=== PATIENT | male | born 1970 | race Caucasian/White ===

== ENCOUNTER 2016-06-05 11:16 | Emergency (ER) | payer MEDICARE, MEDICAID ==
[2016-05-11 02:47] VITALS: BMI 39.3
[~2016-06-05 11:16] MED LIST: ACETAMINOPHEN325 MG NG; ASPIRIN325 MG PO; ATIVAN0.5 MG PO; BACTRIM 400-801 TAB; BACTRIM DS TABL1 TAB PO; BAYER CHEWABLE81 MG PO; BENADRYL50 MG PO; CARAFATE1 G PO; CARAFATE1 G/10 ML PO; DOXEPIN HCL10 MG PO; DOXEPIN HCL75 MG PO; FERREX 150 PLUS1 CAP PO; FERROUS SULFAT325 MG PO; FLOMAX0.4 MG PO; FUROSEMIDE20 MG PO; GLIPIZIDE10 MG PO; GLUCOPHAGE1000 MG PO; GLUCOTROL XL 1010 MG PO; GLUCOTROL XL 5 M5 MG; HYDROCODON-ACE1 EAC7 PO; HYDROCODONE-APA1 TAB PO; K-DUR20 MEQ PO; KLONOPIN0.5 MG PO; LASIX40 MG PO; METOPROLOL TART50 MG PO; NEURONTIN600 MG PO; NITROSTAT0.4 MG SL; PAXIL30 MG PO; PEPCID40 MG PO; PERCOCET 10/3251 TA1 PO; PLAVIX75 MG PO; PRAVACHOL20 MG PO; PRILOSEC20 MG PO; PRINIVIL20 MG PO; PROTONIX40 MG PO; PROZAC40 MG PO; RANEXA500 MG PO; REQUIP0.5 MG PO; ROBAXIN500 MG PO; SINEQUAN100 MG PO; SINEQUAN50 MG PO; VITAMIN B-1000 MCG/M IM; XARELTO10 MG PO; XARELTO20 MG PO; ZESTORETIC 20-1 EACH PO; ZOLOFT50 MG PO
[2016-06-05 11:55] LABS: BASOPHILS 0.1 % (0.0-2.0); EOSINOPHILS 1.6 % (0-7); HEMATOCRIT 36.3 % (42.0-54.0); HEMOGLOBIN 10.8 g/dL (13.5-17.5); IMMATURE GRANULOCYTES 0.1 % (0-5); LYMPHOCYTES 20.1 % (15-50); MCH 24.6 pg (26.0-34.0); MCHC 29.8 g/dL (31.0-37.0); MCV 82.7 fL (80.0-100.0); MEAN PLATELET VOLUME 10.9 fL (7.4-10.4); MONOCYTES 8.8 % (2-11); NEUTROPHILS 69.3 % (40-80); PLATELET COUNT 203 10x3/uL (130-400); RBC 4.39 10x6/uL (4.20-6.10); RDW 15.9 % (11.5-14.5)
[2016-06-05 12:13] LABS: ALBUMIN 3.9 g/dL (3.4-5.0); ANION GAP 13.7 mmol/L (8-16); BILIRUBIN - TOTAL 0.4 mg/dL (0.2-1.3); CALCIUM 9.3 mg/dL (8.5-10.1); CARBON DIOXIDE 31.8 mmol/L (21.0-32.0); CREATININE - SERUM 2.1 mg/dL (0.6-1.3); POTASSIUM - SERUM 4.5 mmol/L (3.5-5.1); PROTEIN - SERUM 7.5 g/dL (6.4-8.2)
[2016-06-05 12:49] LABS: CKMB 1.5 U/L (0.0-3.6); CREATINE KINASE 131 UL (21-232); TROPONIN-I < 0.017 ng/mL (0.000-0.060)
== END 2016-06-05 15:51 | disposition home or self-care (01) ==
LOC: D.ER 11:16
PROVIDERS: Emergency Medicine
DX: R55 Syncope and collapse (principal); I95.9 Hypotension, unspecified; E86.0 Dehydration; F32.9 Major depressive disorder, single episode, unspecified; F17.200 Nicotine dependence, unspecified, uncomplicated; I44.0 Atrioventricular block, first degree; I45.10 Unspecified right bundle-branch block; I44.60 Unspecified fascicular block

== ENCOUNTER → 2016-07-03 08:30 | Outpatient (CLI) | payer MEDICARE ==
[2016-05-11 02:47] VITALS: BMI 39.3
== END | disposition home or self-care (01) ==
LOC: D.CT 08:30
DX: I70.219 Atherosclerosis of native arteries of extremities with intermittent claudication, unspecified extremity (principal); I25.10 Atherosclerotic heart disease of native coronary artery without angina pectoris

== ENCOUNTER → 2016-07-24 14:44 | Outpatient (CLI) | payer MEDICARE ==
[2016-05-11 02:47] VITALS: BMI 39.3
== END | disposition home or self-care (01) ==
LOC: D.MRI 14:44
DX: M79.604 Pain in right leg (principal)

== ENCOUNTER 2016-11-03 04:16 | Outpatient (CLI) | payer MEDICARE ==
[2016-05-11 02:47] VITALS: BMI 39.3
[2016-11-03] VITALS (9 sets, daily range): BP systolic 140–167; BP diastolic 76–98
--- NOTE | ~2016-11-03 | HEMODYNAMI ---
PATIENT:SERINA SAENZ MEDICAL RECORD: [id number] : 68 [id number] ADMISSION DATE: 11/03/16 Generatedon:11/03/201611:27 Patient name: SERINA SAENZ Patient #: [id number] : 1970 Date of study: 11/03/2016 Page: Of Hemodynamic Procedure Report Patient Data Patient Demographics Procedure consent was obtained First Name: SERINA Gender: Male Last Name: LETTY : 1970 Middle Initial: RABIA Age: 45 year(s) Patient #: [id number] Race: SSN: [id number] Additional ID: [id number] Contact details [address]: [address] [place] [address] State: [place] City: [place] Zip code: [address] Past Medical History Allergies Allergen Reaction Date Comments Reported Other allergy 06/10/2014 keflex Other allergy 04/19/2016 Keflex Other allergy 04/26/2016 keflex Other allergy 05/11/2016 Cephalexin, Monohydrate Other allergy 11/03/2016 cephalexin Monohydrate Admission Admission Data Admission Date: 11/03/2016 Admission Time: 5:04 Room #: D.2119 Lab Results Lab Result Date: 11/03/2016 Lab Result Time: 3:31 Biochemistry Name Units Result Min Max BUN mg/dl 14 --(--*-)-- 7 18 CK-MB ng/ml 0.4 --(*---)-- 0 3.6 Creatinine mg/dl 1.2 --(---*)-- 0.6 1.3 Creatinine l 56 --(*---)-- 21 215 Kinase Troponin l ng/ml 0.017 --(-*--)-- 0 0.06 CBC Name Units Result Min Max Hematocrit % 33.2 *-(----)-- 42 54 Hemoglobin g/dl 9.9 *-(----)-- 13.5 17.5 Procedure Procedure Types Cath Procedure Diagnostic Procedure [facility] w/Coronaries w/Grafts PCI Procedure Coronary Stent Initial Miscellaneous Procedures Moderate Sedation up to 30 minutes Procedure Description Procedure Date Procedure Date: 11/03/2016 Procedure Start Time: 11:08 Procedure End Time: 11:26 Procedure Staff Name Function Dylan Browning MD Performing Physician Abdon Dorantes RT Scrub Hansa Garza RN Nurse Bertrand Gamble RT Monitor Procedure Data Cath Procedure Fluoroscopy Diagnostic fluoroscopy Total fluoroscopy Time: 2.7 time: 2.7 min min Diagnostic fluoroscopy Total fluoroscopy dose: 393 dose: 393 mGy mGy Contrast Material Contrast Material Type Amount (ml) Isovue 300 77 Entry Location Entry Primary Successful Side Size Upsize Upsize Entry Closure Succes sful Closure Location (Fr) 1 (Fr) 2 (Fr) Remarks Device Remarks Femoral Right 5 Fr 6 Fr Exoseal artery Short Estimated blood loss: 10 ml Diagnostic catheters Device Type Used For End Catheter Placement Cordis 5Fr Pigtail Procedure Catheter (MP) Cordis 5Fr JL 4.0 Procedure Catheter (MP) Cordis 5Fr 3DRC Catheter Procedure (MP) Diagnostic Infinity 5Fr Procedure AR 2 MOD catheter Procedure Complications No complications Procedure Medications Medication Administration Route Dosage Oxygen NC 2 l/min Heparin Flush Bag added to field 2 bags (1000units/500ml NS) Lidocaine 2% added to field 20 Versed I.V. 1 mg Fentanyl I.V. 50 mcg Versed I.V. 1 mg Fentanyl I.V. 50 mcg Versed I.V. 1 mg Fentanyl I.V. 50 mcg Versed I.V. 1 mg Fentanyl I.V. 50 mcg Versed I.V. 1 mg Fentanyl I.V. 50 mcg Versed I.V. 1 mg Fentanyl I.V. 50 mcg Fentanyl I.V. 50 mcg Versed I.V. 1 mg Versed I.V. 1 mg Fentanyl I.V. 50 mcg Heparin Bolus I.V. 4000 units Hemodynamics Rest HGB: 9.9 (g/dl) Heart Rate: 88 (bpm) Snapshots Pre Cath Intra NCS Post Cath Vital Signs Time Heart Resp SPO2 etCO2 [id number] NIBP (mmHg) Rhythm Pain Sedatio n Rate (ipm) (%) (mmHg) (mmHg) Status Level (bpm) 10:50:28 89 15 99 0 0 179/102(149) NSR 0 (11) 10(A) , No pain 10:54:48 84 16 94 0 0 174/95(140) NSR 0 (11) 10(A) , No pain 10:59:04 84 17 100 0 0 161/86(135) NSR 0 (11) 10(A) , No pain 11:04:03 83 16 100 0 0 Measuring NSR 0 (11) 10(A) , No pain 11:04:10 83 15 100 0 0 140/78(117) NSR 0 (11) 10(A) , No pain 11:08:28 84 19 98 0 0 135/76(109) NSR 0 (11) 10(A) , No pain 11:13:26 82 18 99 0 0 Measuring NSR 0 (11) 10(A) , No pain 11:13:29 74 18 99 0 0 117/70(106) NSR 0 (11) 10(A) , No pain 11:17:40 87 19 100 0 0 114/67(104) NSR 0 (11) 10(A) , No pain 11:20:14 85 15 100 0 0 128/74(110) NSR 0 (11) 10(A) , No pain 11:24:28 83 16 100 0 0 128/74(115) NSR 0 (11) 10(A) , No pain Medications Time Medication Route Dose Verified Delivered Reason Notes Effectiveness by by 10:53:23 Oxygen NC 2 Dylan Hansa Per physician l/min Nallely Garza RN 10:53:30 Heparin Flush added 2 Dylan Dylan used for Bag to bags Nallely Browning MD procedure (1000units/500ml field NS) 10:53:37 Lidocaine 2% added 20ml Dylan Dylan used for to vial Nallely Browning MD procedure field 10:58:40 Versed I.V. 1 mg Dylan Hansa for sedation Nallely Garza RN 10:58:51 Fentanyl I.V. 50 Dylan Hansa for sedation mcg Nallely Garza RN 11:00:35 Versed I.V. 1 mg Dylan Hansa for sedation Nallely Garza RN 11:00:49 Fentanyl I.V. 50 Dylan Hansa for sedation mcg Tauth MD Greg RN 11:02:50 Versed I.V. 1 mg Dylan Hansa for sedation Nallely Garza RN 11:02:54 Fentanyl I.V. 50 Dylan Hansa for sedation mcg Nallely Garza RN 11:04:45 Fentanyl I.V. 50 Dylan Hansa for sedation mcg Nallely Garza RN 11:04:45 Versed I.V. 1 mg Dylan Hansa for sedation Nallely Garza RN 11:06:42 Versed I.V. 1 mg Dylan Hansa for sedation Nallely Garza RN 11:06:49 Fentanyl I.V. 50 Dylan Hansa for sedation mcg Nallely Garza RN 11:08:40 Versed I.V. 1 mg Dylan Hansa for sedation Nallely Garza RN 11:08:43 Fentanyl I.V. 50 Dylan Hansa for sedation mcg Nallely Garza RN 11:10:34 Versed I.V. 1 mg Dlyan Hansa for sedation Nallely Garza RN 11:10:42 Fentanyl I.V. 50 Dylan Hansa for sedation mcg Nallely Garza RN 11:12:53 Versed I.V. 1 mg Dylan Hansa for sedation Nallely Garza RN 11:12:56 Fentanyl I.V. 50 Dylan Hansa for sedation mcg Nallely Garza RN 11:15:25 Heparin Bolus I.V. 4000 Dylan Hansa for dose units Nallely Garza RN anticoagulation verified [facility] dr browning Procedure Log Time Note 10:15:10 Abdon Dorantes RT(R) sent for patient. Start room use. 10:34:54 Informed consent obtained and on chart 10:35:16 Time tracking: Regular hours 10:35:22 Plan of Care:Hemodynamics will remain stable., Cardiac rhythm will remain stable., Comfort level will be maintained., Respiratory function will remain adequate., Patient/ family verbilizes understanding of procedure., Procedure tolerated without complication., Recovers from procedure without complications.. 10:37:44 Lab Result : BUN 14 mg/dl 10:37:44 Lab Result : Creatinine 1.2 mg/dl 10::44 Lab Result : CK-MB 0.4 ng/ml 10:37:44 Lab Result : Troponin l 0.017 ng/ml 10:37:44 Lab Result : Creatinine Kinase 56 l 10:37:44 Lab Result : Hematocrit 33.2 % 10:37:44 Lab Result : Hemoglobin 9.9 g/dl 10:38:02 Lab results completed and on chart. 10:38:35 Patient allergic to Other allergycephalexin Monohydrate 10:43:08 Patient received from Med II to CCL 1 Alert and oriented. Tansferred to table in Supine position. 10:43:08 Warm blankets applied, and yolande hugger turned on for patient comfort. 10:43:09 Correct patient and procedure confirmed by team. 10:43:10 ECG and BP/O2 sat monitors applied to patient. 10:49:16 Vital chart was started 10:49:18 Baseline sample Acquired. 10:49:25 Rhythm: sinus rhythm 10:49:28 Full Disclosure recording started 10:53:23 Oxygen 2 l/min NC was administered by Hansa Garza RN; Per physician; 10:53:30 Heparin Flush Bag (1000units/500ml NS) 2 bags added to field was administered by Dylan Browning MD; used for procedure; 10:53:37 Lidocaine 2% 20ml vial added to field was administered by Dylan Browning MD; used for procedure; 10:55:27 H&P Date Dictated: 11/03/2016 Within 30 days and on chart.. 10:55:28 Pre-procedure instructions explained to patient. 10:55:29 Pre-op teaching completed and patient verbalized understanding. 10:55:31 Family in patients room. 10:55:32 Patient NPO since Midnight. 10:55:34 Is the patient allergic to Iodine/contrast media? No. 10:55:36 Is patient on blood thinner?Yes 10:55:39 ACC The patient was administered the following blood thiners within the last 24 hours: ACCAspirin, ACCPlavix 10:55:41 Patient diabetic? Yes. 10:55:42 If diabetic: On Metformin? Yes 10:55:45 If on Metformin: Last Dose? 11/01/2016 10:55:48 Previous problem with sedation/anesthesia? No ? 10:55:49 Snore? Yes 10:55:50 Sleep apnea? Yes 10:55:51 Deviated septum? No 10:55:52 Opens mouth fully? Yes 10:55:53 Sticks out tongue? Yes 10:55:54 Airway obstruction? No ? 10:55:56 Dentures? No ? 10:55:59 Pre procedure: right dorsailis pedis pulse 2+ Normal; easily identifiable; not easily obliterated 10:56:02 Patient pain scale 5/10 ?. 10:56:17 IV patent on arrival in right antecubital with 0.9% NaCl at [facility]. 10:56:22 Right groin area was prepped with chlora-prep and draped in sterile fashion 10:56:23 Alarms reviewed by R. N. 10:56:24 Sharps counted by scrub and verified by R.N. 10:56:26 Use device set Femoral Dx 10:56:28 Tegaderm 4 x 4 opened to sterile field. 10:56:30 Acist Manifold opened to sterile field. 10:56:36 Acist Hand Control opened to sterile field. 10:56:37 Acist Syringe opened to sterile field. 10:56:37 Bag Decanter opened to sterile field. 10:56:38 Medline Cath Pack opened to sterile field. 10:56:38 Terumo 5Fr Collins Sheath opened to sterile field. 10:56:39 St Ronal 260cm J .035 wire opened to sterile field. 10:56:40 Diagnostic Infinity 5Fr Multipack catheter opened to sterile field. 10:58:34 Physician arrived 10:58:34 --------ALL STOP TIME OUT------ 10:58:35 Final Timeout: patient, procedure, and site verified with staff and physician. All members of the team are in agreement. 10:58:37 Right groin site verified by team. 10:58:39 Physical assessment completed. ASA score P 2 - A patient with mild systemic disease as per Dylan Browning MD. 10:58:40 Versed 1 mg I.V. was administered by Hansa Garza RN; for sedation; 10:58:42 Sedation plan: IV Moderate Sedation Versed, Fentanyl 10:58:51 Fentanyl 50 mcg I.V. was administered by Hansa Garza RN; for sedation; 11:00:35 Versed 1 mg I.V. was administered by Hansa Garza RN; for sedation; 11:00:49 Fentanyl 50 mcg I.V. was administered by Hansa Garza RN; for sedation; 11:02:50 Versed 1 mg I.V. was administered by Hansa Garza RN; for sedation; 11:02:54 Fentanyl 50 mcg I.V. was administered by Hansa Garza RN; for sedation; 11:04:45 Fentanyl 50 mcg I.V. was administered by Hansa Garza RN; for sedation; 11:04:45 Versed 1 mg I.V. was administered by Hansa Garza RN; for sedation; 11:05:48 Zero performed for pressure channel P1 11:05:56 Zero performed for pressure channel P1 11:05:58 Zero performed for pressure channel P1 11:06:42 Versed 1 mg I.V. was administered by Hansa Garza RN; for sedation; 11:06:49 Fentanyl 50 mcg I.V. was administered by Hansa Garza RN; for sedation; 11:08:09 Procedure started. 11:08:12 Local anesthetic to right femoral artery with Lidocaine 2% by Dylan Browning MD.INITIAL ACCESS ONLY 11:08:19 A 5 Fr sheath was inserted into the Right Femoral artery 11:08:40 Versed 1 mg I.V. was administered by Hansa Garza RN; for sedation; 11:08:43 Fentanyl 50 mcg I.V. was administered by Hansa Garza RN; for sedation; 11:10:34 Versed 1 mg I.V. was administered by Hansa Garza RN; for sedation; 11:10:42 Fentanyl 50 mcg I.V. was administered by Hansa Garza RN; for sedation; 11:11:04 A Cordis 5Fr Pigtail Catheter (MP) was advanced over the wire and used for Procedure. 11:11:07 LV gram done using NGUYEN 11:11:10 Injector settings: Ml/sec: 10, Volume: 20, 11:11:14 EF : 55 % 11:11:15 Catheter exchanged over wire. 11:11:19 A Cordis 5Fr JL 4.0 Catheter (MP) was advanced over the wire and used for Procedure. 11:11:20 LCA angiography performed. 11:11:35 Terumo 6Fr Collins Sheath opened to sterile field. 11:11:36 Garcia Whisper J 300cm 0.014 guide wire opened to sterile field. 11:11:37 Qool BasixCompak Inflation Kit opened to sterile field. 11:12:09 Catheter exchanged over wire. 11:12:13 A Cordis 5Fr 3DRC Catheter (MP) was advanced over the wire and used for Procedure. 11:12:22 GARCIA to LAD angiography performed. 11:12:48 RCA angiography performed. 11:12:53 Versed 1 mg I.V. was administered by Hansa Garza RN; for sedation; 11:12:56 Fentanyl 50 mcg I.V. was administered by Hansa Garza RN; for sedation; 11:13:03 Catheter exchanged over wire. 11:13:08 A Diagnostic Infinity 5Fr AR 2 MOD catheter was advanced over the wire and used for Procedure. 11:13:16 Cordis 6FR XBLAD 4.0 guide catheter opened to sterile field. 11:14:35 SVG to Ramus angiography performed. 11:14:41 Catheter removed. 11:14:52 Sheath upsized to a 6 Fr Short. 11:15:23 6 Fr xblad 4 guide catheter was inserted over the wire 11:15:25 Heparin Bolus 4000 units I.V. was administered by Hansa Garza RN; for anticoagulation; dose verified wt dr browning 11:15:26 whisper wire advanced. 11:16:17 Wire advanced across lesion. 11:17:54 Inflation Number: 1 A Promus Premier OTW 3.5 x 16 stent was prepped and advanced across the Mid CX. The stent was deployed at 23 PRISCILA for 0:10 (min:sec). 11:17:55 Stent catheter was removed intact over wire. 11:17:56 Wire removed. 11:17:56 Guide catheter removed. 11:18:04 Cordis 6Fr Exoseal opened to sterile field. 11:18:11 Sheath removed intact; hemostasis achieved with Exoseal to the Right Femoral artery. 11:18:13 Procedure ended.(Physican Out) 11:20:31 Fluoroscopy time 02.70 minutes. 11:20:35 Flurop Dose total: 393 11:20:35 Fluoroscopy dose: 393 mGy 11:20:38 Contrast amount:Isovue 300 77ml. 11:20:39 Sharps counted by scrub and verified by R.N. 11:20:41 Insertion/operative site no bleeding no hematoma. 11:20:43 Post-op/insertion site Right Femoral artery dressed using a 4 x 4 and Tegaderm. 11:20:47 Post right femoral artery:stable, soft, clean and dry 11:20:48 Post Procedure Pulses reassessed and unchanged 11:20:50 Post-procedure physical assessment completed. ASA score P 2 - A patient with mild systemic disease as per Dylan Browning MD. 11:20:52 Post procedure rhythm: unchanged. 11:20:54 Estimated blood loss: 10 ml 11:20:55 Post procedure instruction explained to patient.Patient verbalizes understanding. 11:20:59 Patient needs reinforcement of post procedure teaching. 11:21:37 Procedure type changed to Cath procedure, Diagnostic procedure, LHC, LHC w/Coronaries w/Grafts, PCI procedure, Coronary Stent Initial, Miscellaneous Procedures, Moderate Sedation up to 30 minutes 11:26:48 Procedure and supply charges have been captured, reviewed, submitted and are correct. 11:26:50 Procedure Complication : No complications 11:26:51 Vital chart was stopped 11:26:53 Report given to PCU. 11:26:56 Patient transfered to PCU with Stretcher. 11:26:57 Procedure ended. 11:26:57 Full Disclosure recording stopped 11:26:59 End room use (Document Last) Intervention Summary Intervention Notes Time ActionType Lesion and Equipment Action# Pressure Duration Attributes Used 11:17:54 Place stent Mid CX Promus 1 23 00:10 Premier OTW 3.5 x 16 stent Device Usage Item Name Manufacture Quantity Catalog Number Hospital Part Current [facility] Lot# / Charge Number Stock Stock Serial# Code Tegaderm 4 3M 1 [id number] 230809 918483 5 x 4 Acist Acist 1 47924 933177 560074 249205 5 Manifold [employer] Inc Acist Hand Acist 1 38350 733691 891812 664089 5 Control Medical Systems Inc Acist Acist 1 63604 640174 292249 246171 20 Syringe Medical Systems Inc Bag Microtek 1 2002S 8714799 08122 612969 5 [employer] Medline Cardinal 1 [id number] 169269 46817 245442 5 Cath Pack Health Terumo 5Fr Terumo 1 [id number] 525469 797822 129776 [address] St Ronal 1 252324 456353 310516 772403 30 260cm J .035 wire Diagnostic Cardinal 1 [id number] 683930 14192 136506 30 Infinity Health 5Fr Multipack catheter Cordis 5Fr Cardinal 1 [id number] 5 Pigtail Health Catheter (MP) Cordis 5Fr Cardinal 1 240117 5 JL 4.0 Health Catheter (MP) Terumo 6Fr Terumo 1 [id number] 629420 733132 877816 40 Collins Sheath Garcia Garcia 1 [id number] 536063 652992 098240 5 Whisper J Vascular 300cm 0.014 guide wire Merit Merit 1 [id number] 873063 378355 050964 15 Re[employer]ooixT[employer]lide Medical Inflation Kit Cordis 5Fr Cardinal 1 066545 5 3DRC Health Catheter (MP) Diagnostic Cardinal 1 [id number] 166983 769112 973809 20 Infinity Health 5Fr AR 2 MOD catheter Cordis 6FR Cardinal 1 [id number] 911674 770779 084812 3 XBLAD 4.0 Health guide catheter Promus Caret 1 [id number] 554294 658392 5 [id number] VISEO 3.5 x 16 stent Cordis 6Fr Cardinal 1 [id number] 226073 534335 424342 10 [facility] NitroPCR Signature Audit [place] Stage Time Signature Unsigned Intra-Procedure 11/03/2016 Bertrand Gamble 11:27:45 AM RT(R) Signatures Monitor : Bertrand Gamble RT Signature : Date : Time : [facility] [address] [facility] [address]
[2016-11-03 03:35] LABS: BASOPHILS 0.1 % (0-2); HEMATOCRIT 33.2 % (42.0-54.0); HEMOGLOBIN 9.9 g/dL (13.5-17.5); IMMATURE GRANULOCYTES 0.1 % (0-5); LYMPHOCYTES 24.1 % (15-50); MCHC 29.8 g/dL (31.0-37.0); MONOCYTES 8.4 % (2-11); NEUTROPHILS 66.3 % (40-80); PLATELET COUNT 179 10x3/uL (130-400); RBC 4.31 10x6/uL (4.20-6.10); RDW 16.3 % (11.5-14.5); WBC 6.9 10x3/uL (4.8-10.8)
[2016-11-03 03:50] LABS: ALBUMIN 3.5 g/dL (3.4-5.0); ALKALINE PHOSPHATASE 72 U/L (46-116); ALT (SGPT) 20 U/L (10-68); BILIRUBIN - TOTAL 0.31 mg/dL (0.2-1.3); CALC OSMOLALITY 281 mosm/kg (275-300); CALCIUM 9.1 mg/dL (8.5-10.1); CHLORIDE - SERUM 103 mmol/L (98-107); CREATININE - SERUM 1.2 mg/dL (0.6-1.3); GLUCOSE 105 mg/dL (74-106); POTASSIUM - SERUM 3.9 mmol/L (3.5-5.1); PROTEIN - SERUM 7.2 g/dL (6.4-8.2); SODIUM 141 mmol/L (136-145); UREA NITROGEN 14 mg/dL (7-18); eGFR NON AFRICAN AMERICAN 69 mL/min (90-120)
[2016-11-03 04:01] LABS: CKMB 0.4 U/L (0.0-3.6); CREATINE KINASE 60 UL (21-232); TROPONIN-I < 0.017 ng/mL (0.000-0.060)
[2016-11-03] MEDS ORDERED: PROTONIX40 MG PO (06:01)
[2016-11-03] MEDS ORDERED: LIPITOR20 MG PO (06:03)
--- NOTE | 2016-11-03 06:40 | NUR ---
PT RECEIVED VIA WHEELCHAIR FROM ER, AWAKE, ALERT, ORIENTED, STATES HE IS HAVING ACTIVE CP AND PRESSURE. HOLDING PT NPO REGARDLESS OF DIET ORDER. I HAVE DISCUSSED THE NEED TO DO SO IN CASE HE WILL BE CATHED TODAY, AND PT AND SPOUSE ARE IN FULL AGREEMENT. PT DID NOT HAVE ANY ORDERS FOR PRN PAIN MEDICATION, SO PER THE ORDER, I HAVE RESTARTED HIS HOME MEDICATIONS AND DID GIVE HIM HIS PRN NORCO. PT HAD ACTIVE NAUSEA AND VOMITING, ZOFRAN GIVEN. TELEMETRY PLACED. CONTINUE TO MONITOR CLOSELY.
--- NOTE | 2016-11-03 07:30 | NUR ---
PATIENT RESTING QUIETLY WITH DEEP EVEN RESPIRATIONS. AT THE BEDSIDE ALSO SLEEPING. DID NOT DISTURB. THE STUDENT NURSE HAS TAKEN HIS VS, THEY ARE WNL. DENIED CP TO HER, C/O NAVARRETE.
--- NOTE | 2016-11-03 08:50 | NUR ---
PATIENT DENIES CP. STATES THAT HIS NAVARRETE IS RATED A 5. HE BELIEVES THAT IT IS R/T THE NITRO PATCH. WE DISCUSSED HIS METFORMIN. HE DIDNT TAKE IT YESTERDAY, UNDERSTANDS THAT HE IS TO HOLD IT FOR A COUPLE OF DAYS FOLLOWING THE PROCEDURE DUE TO THE DYE THAT IS USED. PLAVIX AND ASA GIVEN. WITHHELD THE LASIX AND OTHER MEDS AT THIS TIME.
[2016-11-03 09:10] LABS: CREATINE KINASE 56 UL (21-232); TROPONIN-I < 0.017 ng/mL (0.000-0.060)
--- NOTE | 2016-11-03 10:40 | NUR ---
PATIENT OFF THE UNIT TO ROAD CREW MEMBER. PREOP MEDICATIONS GIVEN. IV TO THE RIGHT AC PATENT. HE UNDERSTANDS THE PROCEDURE PLANNED AND THE POST OP EXPECTATIONS. HIS IS AT THE BEDSIDE AND ALSO VERBALIZES UNDERSTANDING. HIS TWO DAUGHTERS, SON IN LAW AND GRANDBABIES ARE ALSO HERE. HE WAS RATING HIS ANGINA A 5 JUST BEFORE THEY TOOK HIM.
[2016-11-03 10:42] LABS: BASOPHILS 0.1 % (0-2); EOSINOPHILS 1.4 % (0-7); HEMATOCRIT 38.4 % (42.0-54.0); HEMOGLOBIN 11.5 g/dL (13.5-17.5); IMMATURE GRANULOCYTES 0.1 % (0-5); LYMPHOCYTES 36.7 % (15-50); MCH 23.2 pg (26.0-34.0); MCHC 29.9 g/dL (31.0-37.0); MCV 77.4 fL (80.0-100.0); MEAN PLATELET VOLUME 11.7 fL (7.4-10.4); MONOCYTES 7.3 % (2-11); NEUTROPHILS 54.4 % (40-80); PLATELET COUNT 213 10x3/uL (130-400); RBC 4.96 10x6/uL (4.20-6.10); RDW 16.4 % (11.5-14.5)
[2016-11-03 10:47] LABS: CALC OSMOLALITY 280 mosm/kg (275-300); CALCIUM 9.3 mg/dL (8.5-10.1); CARBON DIOXIDE 28.2 mmol/L (21.0-32.0); CHLORIDE - SERUM 103 mmol/L (98-107); CREATININE - SERUM 1.1 mg/dL (0.6-1.3); GLUCOSE 100 mg/dL (74-106); POTASSIUM - SERUM 3.8 mmol/L (3.5-5.1); SODIUM 141 mmol/L (136-145); UREA NITROGEN 13 mg/dL (7-18); eGFR NON AFRICAN AMERICAN 76 mL/min (90-120)
--- NOTE | 2016-11-03 11:45 | NUR ---
PATIENT RETURNED TO THE UNIT AND RECEIVED TO ROOM 2119. AND OTHER FAMILY MEMBERS AT THE BEDSIDE. PATIENT IS AWAKE AND ALERT, FALLS ASLEEP EASILY. IVF INFUSING TO THE RIGHT AC PER ORDERS. PUNCTURE SITE IS DRESSED WITH GAUZE AND CLEAR DRESSING. THERE ARE NO S/S OF BLEEDING. SITE IS SOFT AND NONTENDER. PATIENT AND VOICE UNDERSTANDING THAT HE IS TO REMAIN FLAT FOR 4 HOURS AND MAY THEN DISCHARGE HOME. DR. GRANADOS HAS BEEN IN AND DISCUSSED FINDINGS/INTERVENTION WITH THE FAMILY. VSS.
--- NOTE | 2016-11-03 14:00 | NUR ---
PATIENT GIVEN NORCO FOR C/O BACK DISCOMFORT DUE TO INABILITY TO ELEVATE HOB. DENIES OTHER NEEDS, VSS. INSERTION SITE DRESSING REMAINS CLEAN AND WITHOUT EVIDENCE OF BLEEDING.
--- NOTE | 2016-11-03 17:05 | NUR ---
PATIENT DISCHARGED HOME AFTER DISCUSSING INSTRUCTIONS FOR CARE, INCLUDED INCISION CARE, MEDICATIONS AND NEED FOR FOLLOW UP APPT. AT THE BEDISDE THROUGHOUT CONVERSATIONS AND VOICED UNDERSTANDING.
--- NOTE | 2016-11-05 10:11 | CN ---
PATIENT NAME:SERINA SAENZ MEDICAL RECORD: [id number] : 68 LOCATION:D. D.2119 ADMIT DATE: 11/03/16 ACCOUNT: [id number] CONSULTING PHYSICIAN: ARTURO GRANADOS MD REFERRING PHYSICIAN: JOHN REGALADO MD DATE OF CONSULTATION: 11/03/2016 Cardiology Consultation DIAGNOSES: 1. Unstable angina. 2. Coronary artery disease. 3. Previous multivessel percutaneous transluminal coronary angioplasty stent. 4. Hyperlipidemia. 5. Noninsulin dependent diabetes. HISTORY OF PRESENT ILLNESS: This is a gentleman, who presents with anginal symptomatology for the past 3 days, markedly escalating fashion. Last cardiac intervention May 14, just like that of his previous angina. PHYSICAL EXAMINATION: GENERAL APPEARANCE: Well-nourished, well-developed, appears stated age. Level of distress, comfortable. PSYCHIATRIC: Mental status, alert, normal affect. Orientation, oriented to time, place and person. EYES: Lids and conjunctiva, noninjected. No discharge, no pallor. ENT: Lips, teeth, gums, normal dentition. Oropharynx, no cyanosis, no pallor. NECK: Carotid arteries, bilateral normal upstroke, no bruits, no thrills. JUGULAR VEINS: No jugular venous pressure or distention. CERVICAL LYMPH NODES: Nontender, nonenlarged. THYROID: Not enlarged. Nontender. No nodules. LUNGS: Respiratory effort, unlabored. CHEST: Normal curvature. No thoracic deformity. No chest wall tenderness. Percussion, resonant. Auscultation, clear. No wheezes, no rales, no rhonchi. CARDIOVASCULAR: Precordial exam, nondisplaced. No heaves or pericardial thrills. Rate and rhythm, regular. Heart sounds, normal S1, normal S2. No S3, no gallop, no rub. Systolic murmur, not heard. Diastolic murmur, not heard. EXTREMITIES: No cyanosis, no edema. Peripheral pulses, full and equal in all extremities, except as noted. No bruits appreciated. ABDOMEN: Soft, nondistended. Normal aorta. No bruit. Nontender. No masses. Liver, nontender, no hepatomegaly. Spleen, nontender, no splenomegaly. MUSCULOSKELETAL: No joint tenderness. No joint swelling. No erythema. NEUROLOGICAL: Normal gait, normal strength, normal tone. SKIN: Warm and dry. REVIEW OF SYSTEMS: The patient reports easy bruising but reports no swollen glands. The patient reports no fever, no night sweats, no significant weight gain, no significant weight loss. No significant exercise tolerance. The patient reports no dry eyes, no irritation, no vision change. Patient reports no difficulty hearing and no ear pain. Patient reports no frequent nose bleeds or nose and sinus problems. Patient reports on arm pain on exertion. No shortness of breath while lying down. No history of heart murmur. Patient reports no cough, no wheezing or coughing up blood. Patient reports no abdominal pain, no vomiting. Normal appetite. No diarrhea and not vomiting blood. No nausea and no constipation. Patient reports no incontinence. No CONSULT REPORT [id number] SERINA SAENZ difficulty urinating. No hematuria. No increased frequency. Patient reports no muscle aches. No weakness, no arthralgias, no back pain. No swelling of the extremities. Patient reports no abnormal mole, no jaundice, no rashes. Reports no loss of consciousness. No weakness and no numbness. No seizures, dizziness, or headaches. The patient reports no depression, no sleep disturbance, feeling safe in a relationship and no alcohol abuse. Patient reports on fatigue. Reports no runny nose or sinus pressure. No itching, no hives, and no frequent sneezing. OVERALL IMPRESSION: Unstable angina in an escalating fashion. We will proceed with coronary angiography. Further care depends upon findings of the angiography. TRANSINT:[id number] Voice Confirmation ID: [id number] DOCUMENT ID: [id number] ARTURO GRANADOS MD at 1011 CC: [id number] DICTATION DATE: 11/03/16 1022 BUS STEWARD: 11/03/161953 DIS IN 11/03/16 [facility] [address] [place] [address]
--- NOTE | 2016-11-05 10:11 | OP ---
PATIENT NAME: SERINA SAENZ MEDICAL RECORD: [id number] :68 LOCATION:D.M2 D.2119 ADMISSION DATE:11/03/16 SURGEON: ARTURO GRANADOS MD DATE OF OPERATION: 11/03/2016 PROCEDURES: 1. PTCA stent left circumflex. 2. Left heart catheterization. 3. Selective coronary angiography. 4. GARCIA angiography. 5. Vein graft angiography. 6. Left ventriculogram. INDICATION: Angina and coronary artery disease. PROCEDURE IN DETAIL: After informed consent was obtained and after detailed explanation of risks, benefits as well as alternative therapies, the patient elected to proceed with angiogram and angioplasty. The right femoral area was prepped and draped in normal sterile fashion. The right femoral artery was cannulated via modified Seldinger technique with placement of 6-Bel[place]ian sheath. All catheters exchanged through this sheath. FINDINGS: Left ventriculogram was performed in the standard 30-degree NGUYEN view reveals good cardiac wall motion throughout all segments. Overall ejection fraction estimated at 55%. SELECTIVE CORONARY ANGIOGRAPHY: 1. Left main is with no significant angiographic disease. 2. Left anterior descending is totally occluded. 3. Left circumflex has previously placed stents, 80% in-stent restenosis in the mid vessel. 4. Vein graft to the ramus intermedius is widely patent. 5. GARCIA to the LAD is widely patent. 6. Right coronary has moderate irregularities, but no flow-limiting stenosis. No restenosis of the previously placed stent. PTCA STENT OF THE LEFT CIRCUMFLEX: The stent used was a 3.5 x 16 mm Promus taken to 23 atmospheres. Result was 0% residual stenosis. OVERALL IMPRESSION: Successful percutaneous transluminal coronary angioplasty stent of the left circumflex going from 80% in-stent restenosis to 0% residual. TRANSINT:[id number] Voice Confirmation ID: [id number] DOCUMENT ID: [id number] ARTURO GRANADOS MD at 1011 CC: [id number] DICTATION DATE: 11/03/16 1121 WAREHOUSE LOGISTICS MANAGER: 11/03/162109 DIS IN 11/03/16 [id number] [place] [address]
== END 2016-11-03 17:12 | disposition home or self-care (01) ==
LOC: OBSVTIME → D.OPS 04:16 → OBSVTIME 05:04 → D.ER 05:04 → D.M2 05:04 → EDSTATUS 12:22 → D.M2 17:12 → D.OPS 17:12
PROVIDERS: Family Medicine; Internal Medicine Interventional Cardiology
DX: I25.110 Atherosclerotic heart disease of native coronary artery with unstable angina pectoris (principal); T82.855A Stenosis of coronary artery stent, initial encounter; E78.5 Hyperlipidemia, unspecified; I10 Essential (primary) hypertension; E11.9 Type 2 diabetes mellitus without complications; K21.9 Gastro-esophageal reflux disease without esophagitis; F32.9 Major depressive disorder, single episode, unspecified; F41.9 Anxiety disorder, unspecified; Z98.84 Bariatric surgery status; D50.9 Iron deficiency anemia, unspecified; Z86.73 Personal history of transient ischemic attack (TIA), and cerebral infarction without residual deficits; Z88.8 Allergy status to other drugs, medicaments and biological substances; Z79.84 Long term (current) use of oral hypoglycemic drugs; Z79.02 Long term (current) use of antithrombotics/antiplatelets; Z79.82 Long term (current) use of aspirin; Z79.899 Other long term (current) drug therapy; F17.200 Nicotine dependence, unspecified, uncomplicated
CPT/HCPCS: 93459; C9600

== ENCOUNTER 2016-11-14 13:49 | Day surgery (SDC) | payer MEDICARE ==
[~2016-11-14] VITALS: Ht 177.8 cm; Wt 115.5 kg
[~2016-11-14 13:49] MED LIST changes: +LIPITOR20 MG PO
[2016-11-14 14:28] VITALS: BP 155/94; Ht 177.8 cm; Wt 115.5 kg
[2016-11-14 15:00] LABS: BASOPHILS 0.1 % (0-2); EOSINOPHILS 1.7 % (0-7); HEMATOCRIT 31.2 % (42.0-54.0); HEMOGLOBIN 9.3 g/dL (13.5-17.5); IMMATURE GRANULOCYTES 0.6 % (0-5); LYMPHOCYTES 27.6 % (15-50); MCHC 29.8 g/dL (31.0-37.0); MCV 77.2 fL (80.0-100.0); MEAN PLATELET VOLUME 10.6 fL (7.4-10.4); MONOCYTES 11.4 % (2-11); NEUTROPHILS 58.6 % (40-80); PLATELET COUNT 209 10x3/uL (130-400); RBC 4.04 10x6/uL (4.20-6.10); RDW 16.8 % (11.5-14.5); WBC 6.9 10x3/uL (4.8-10.8)
[2016-11-14 15:38] LABS: CALC OSMOLALITY 275 mosm/kg (275-300); CALCIUM 8.7 mg/dL (8.5-10.1); CARBON DIOXIDE 29.7 mmol/L (21.0-32.0); CHLORIDE - SERUM 105 mmol/L (98-107); CREATININE - SERUM 1.1 mg/dL (0.6-1.3); SODIUM 140 mmol/L (136-145); UREA NITROGEN 10 mg/dL (7-18); eGFR NON AFRICAN AMERICAN 76 mL/min (90-120)
[2016-11-14 15:39] LABS: GLUCOSE 68 mg/dL (74-106)
--- NOTE | 2016-11-14 17:09 | NUR ---
[address] GRANADOS REPORTED STENT PLACED ON O11/03/16 AND OFF PLAVIX X 7 DAYS. CLEARED FOR PROCEDURE PER DR. GRANADOS AND SAHIL FISHER CRNA HERE AND PATIENT WAS CLEARED.
--- NOTE | 2016-11-14 17:59 | NUR ---
1755 BACK FROM EGD AND BIOSIES. RESP EVEN AND NONLABORED. HOB ELEVATED.DR. TIERNEY PRESENT AND TALKING TO PT. AND FAMILY.
--- NOTE | 2016-11-14 18:07 | NUR ---
1805 FULL LIQUIDS SERVED.
--- NOTE | 2016-11-14 18:31 | NUR ---
1825 TOLERATED FULL LIQUIDS. RESP EVEN AND NONLABORED. READY TO BE DISCHARGED TO HOME.
--- NOTE | 2016-11-14 18:51 | NUR ---
1840 UP AND VOIDED. IV DCD CATHETER INTACT. WENT OVER DISCHARGE INSTRUCTIONS AND VERBALLY UNDERSTANDS.
--- NOTE | 2016-11-14 18:52 | NUR ---
184 DISCHARGED TO HOME VIA W/C WITH FAMILY.
== END 2016-11-14 18:45 | disposition home or self-care (01) ==
LOC: D.OPS 13:49
PROVIDERS: Anesthesiology
DX: K22.70 Barrett's esophagus without dysplasia (principal); I25.10 Atherosclerotic heart disease of native coronary artery without angina pectoris; I10 Essential (primary) hypertension; E11.9 Type 2 diabetes mellitus without complications; Z95.1 Presence of aortocoronary bypass graft; Z95.5 Presence of coronary angioplasty implant and graft; N40.0 Benign prostatic hyperplasia without lower urinary tract symptoms; E66.01 Morbid (severe) obesity due to excess calories; Z68.36 Body mass index [BMI] 36.0-36.9, adult; Z01.812 Encounter for preprocedural laboratory examination

== ENCOUNTER 2017-01-21 00:25 | Outpatient (CLI) | payer MEDICARE ==
[~2017-01-21] VITALS: Ht 177.8 cm; Wt 118.0 kg
--- NOTE | ~2017-01-21 | HEMODYNAMI ---
PATIENT:SERINA SAENZ MEDICAL RECORD: [id number] : 68 LOCATION[facility] [id number] ADMISSION DATE: 01/21/17 Generatedon:01/22/20179:43 Patient name: ESRINA SAENZ Patient #: [id number] : 1970 Date of study: 01/22/2017 Page: Of Hemodynamic Procedure Report Patient Data Patient Demographics Procedure consent was obtained First Name: SERINA Gender: Male Last Name: LETTY : 1970 Middle Initial: RABIA Age: 46 year(s) Patient #: [id number] Race: SSN: [id number] Additional ID: [id number] Contact details Address: [address] [place] [address] State: [place] City: [place] Zip code: [address] Past Medical History Allergies Allergen Reaction Date Comments Reported Other allergy 06/10/2014 keflex Other allergy 04/19/2016 Keflex Other allergy 04/26/2016 keflex Other allergy 05/11/2016 Cephalexin, Monohydrate Other allergy 11/03/2016 cephalexin Monohydrate Other allergy 01/22/2017 keflex Admission Admission Data Admission Date: 01/21/2017 Admission Time: 2:13 Room #: 2122 Lab Results Lab Result Date: 01/21/2017 Lab Result Time: 0:00 Biochemistry Name Units Result Min Max Creatinine mg/dl 1.5 --(----)-* 0.6 1.3 CBC Name Units Result Min Max Hemoglobin g/dl 10.2 *-(----)-- 13.5 17.5 Procedure Procedure Types Cath Procedure Diagnostic Procedure LHC LHC w/Coronaries w/Grafts PCI Procedure Coronary Stent Initial Miscellaneous Procedures Moderate Sedation up to 30 minutes Procedure Description Procedure Date Procedure Date: 01/22/2017 Procedure Start Time: 9:24 Procedure End Time: 9:42 Procedure Staff Name Function Dylan Browning MD Performing Physician Buffy Mcgraw RT Scrub Guera Gandhi RN Nurse Holly Mcmullen RT Monitor Procedure Data Cath Procedure Fluoroscopy Diagnostic fluoroscopy Total fluoroscopy Time: 2.9 time: 2.9 min min Diagnostic fluoroscopy Total fluoroscopy dose: dose: 1367 mGy 1367 mGy Contrast Material Contrast Material Type Amount (ml) Isovue 300 93 Entry Location Entry Primary Successful Side Size Upsize Upsize Entry Closure Succes sful Closure Location (Fr) 1 (Fr) 2 (Fr) Remarks Device Remarks Femoral Right 5 Fr 6 Fr artery Short Estimated blood loss: 10 ml Diagnostic catheters Device Type Used For End Catheter Placement Cordis 5Fr Pigtail LV Angiography Catheter (MP) Cordis 5Fr JL 4.0 Left Coronary Catheter (MP) Angiography Cordis 5Fr 3DRC Catheter Internal mammary (MP) arteriography Diagnostic Infinity 5Fr SVG Angiography AR 2 MOD catheter Diagnostic Infinity 5Fr Right Coronary AR 2 MOD catheter Angiography Procedure Complications No complications Procedure Medications Medication Administration Route Dosage Oxygen NC 2 l/min Heparin Flush Bag added to field 2 bags (1000units/500ml NS) Lidocaine 2% added to field 20 Plavix P.O. 600 mg Fentanyl I.V. 50 mcg Versed I.V. 1 mg Fentanyl I.V. 50 mcg Versed I.V. 1 mg Fentanyl I.V. 25 mcg Versed I.V. 0.5 mg Fentanyl I.V. 25 mcg Versed I.V. 0.5 mg Fentanyl I.V. 25 mcg Versed I.V. 0.5 mg Heparin Bolus I.V. 4000 units Integrilin (Bolus I.V. 10.7 ml 2mg/ml) Hemodynamics Rest HGB: 10.2 (g/dl) Heart Rate: 81 (bpm) Snapshots Pre Cath Intra NCS Post Cath Vital Signs Time Heart Resp SPO2 NIBP (mmHg) Rhythm Pain Sedation Rate (ipm) (%) Status Level (bpm) 9:07:07 75 16 100 173/105(149) NSR 0 (11) 10(A) , No pain 9:11:43 80 17 100 172/101(140) NSR 0 (11) 10(A) , No pain 9:16:18 76 16 100 161/99(133) NSR 0 (11) 10(A) , No pain 9:20:50 75 18 97 157/91(125) NSR 0 (11) 10(A) , No pain 9:25:18 72 16 100 143/90(114) NSR 0 (11) 9(A) , No pain 9:29:43 85 18 97 147/90(117) NSR 0 (11) 9(A) , No pain 9:34:05 87 18 96 144/92(112) NSR 0 (11) 9(A) , No pain 9:38:31 89 17 97 138/87(112) NSR 0 (11) 9(A) , No pain Medications Time Medication Route Dose Verified Delivered Reason Notes Effectiveness by by 9:07:47 Oxygen NC 2 Guera Guera used for l/min Gandhi Gandhi finished stock inspector RN 9:07:56 Heparin Flush added 2 Guera Guera used for Bag to bags Gandhi Gandhi procedure (1000units/500ml field RN RN NS) 9:08:06 Lidocaine 2% added 20ml Guera Guera used for to vial Gandhi Gandhi procedure field RN RN 9:08:16 Plavix P.O. 600 Guera Guera for mg Oksana Gandhi antiplatelet RN RN therapy 9:21:22 Fentanyl I.V. 50 Guera Guera for sedation mcg Oksana Gandhi RN RN 9:21:26 Versed I.V. 1 mg Guera Guera for sedation Oksana Gandhi RN RN 9:22:29 Fentanyl I.V. 50 Guera Guera for sedation mcg Oksana Gandhi RN RN 9:22:32 Versed I.V. 1 mg Guera Guera for sedation Oksana Gandhi RN RN 9:23:46 Fentanyl I.V. 25 Guera Guera for sedation mcg Oksana Gandhi RN RN 9:23:50 Versed I.V. 0.5 Guera Guera for sedation mg Oksana Gandhi RN RN 9:25:40 Fentanyl I.V. 25 Guera Guera for sedation mcg Oksana Gandhi RN RN 9:25:51 Versed I.V. 0.5 Guera Guera for sedation mg Oksana Gandhi RN RN 9:30:27 Fentanyl I.V. 25 Guera Guera for sedation mcg Oksana Gandhi RN RN 9:30:30 Versed I.V. 0.5 Guera Guera for sedation mg Oksana Gandhi RN RN 9:33:07 Heparin Bolus I.V. 4000 Guera Guera for units Gandhi Gandhi anticoagulation RN RN 9:35:49 Integrilin I.V. 10.7 Guera Lynne for (Bolus 2mg/ml) ml Oksana Gandhi anticoagulation RN residential nurse Log Time Note 8:54:11 Guera Gandhi RN sent for patient. Start room use. 8:54:12 Time tracking: Regular hours 8:54:16 Plan of Care:Hemodynamics will remain stable., Cardiac rhythm will remain stable., Comfort level will be maintained., Respiratory function will remain adequate., Patient/ family verbilizes understanding of procedure., Procedure tolerated without complication., Recovers from procedure without complications.. 8:56:39 Lab Result : Creatinine 1.5 mg/dl 8:56:39 Lab Result : Hemoglobin 10.2 g/dl 8:56:46 Patient received from PCU to CCL 2 Alert and oriented. Tansferred to table in Supine position. 8:56:47 Warm blankets applied, and yolande hugger turned on for patient comfort. 8:56:47 Correct patient and procedure confirmed by team. 8:56:49 Signed procedure consent form obtained from patient. 8:56:50 ECG and BP/O2 sat monitors applied to patient. 8:56:51 Full Disclosure recording started 9:02:30 Vital chart was started 9:06:22 Baseline sample Acquired. 9:06:27 Rhythm: sinus rhythm 9:06:42 H&P Date Dictated: 01/21/2017 Within 30 days and on chart.. 9:06:43 Pre-procedure instructions explained to patient. 9:06:43 Pre-op teaching completed and patient verbalized understanding. 9:06:45 Family in patients room. 9:06:47 Patient NPO since Midnight. 9:07:02 Patient allergic to Other allergykeflex 9:07:06 Is the patient allergic to Iodine/contrast media? No. 9:07:10 Is patient on blood thinner?Yes 9:07:12 ACC The patient was administered the following blood thiners within the last 24 hours: ACCPlavix 9:07:47 Oxygen 2 l/min NC was administered by Guera Gandhi RN; used for procedure; 9:07:48 Patient diabetic? Yes. 9:07:49 If diabetic: On Metformin? Yes 9:07:51 If on Metformin: Last Dose? 01/20/2017 9:07:54 Previous problem with sedation/anesthesia? No ? 9:07:55 Snore? Yes 9:07:56 Heparin Flush Bag (1000units/500ml NS) 2 bags added to field was administered by Guera Gandhi RN; used for procedure; 9:07:56 Sleep apnea? No 9:07:57 Deviated septum? No 9:07:58 Opens mouth fully? Yes 9:07:58 Sticks out tongue? Yes 9:08:03 Airway obstruction? No ? 9:08:05 Dentures? No ? 9:08:06 Lidocaine 2% 20ml vial added to field was administered by Guera Gandhi RN; used for procedure; 9:08:16 Plavix 600 mg P.O. was administered by Guera Gandhi RN; for antiplatelet therapy; 9:08:26 Pre procedure: right dorsailis pedis pulse 2+ Normal; easily identifiable; not easily obliterated 9:08:30 Patient pain scale 0/10 ?. 9:08:42 IV patent on arrival in right antecubital with 0.9% NaCl at [facility]. 9:08:45 Lab results completed and on chart. 9:08:48 Right groin area was prepped with chlora-prep and draped in sterile fashion 9:08:49 Alarms reviewed by R. N. 9:08:49 Sharps counted by scrub and verified by R.N. 9:08:55 Use device set Femoral Dx 9:08:56 Acist Syringe opened to sterile field. 9:08:57 Bag Decanter opened to sterile field. 9:08:57 Medline Cath Pack opened to sterile field. 9:08:58 Terumo 5Fr [place] Sheath opened to sterile field. 9:08:58 St Ronal 260cm J .035 wire opened to sterile field. 9:09:02 Acist Hand Control opened to sterile field. 9:09:03 Acist Manifold opened to sterile field. 9:09:03 Diagnostic Infinity 5Fr Multipack catheter opened to sterile field. 9:09:04 Tegaderm 4 x 4 opened to sterile field. 9:19:28 Zero performed for pressure channel P1 9:19:56 Final Timeout: patient, procedure, and site verified with staff and physician. All members of the team are in agreement. 9:19:58 Right groin site verified by team. 9:20:01 Physical assessment completed. ASA score P 2 - A patient with mild systemic disease as per Dylan Browning MD. 9:20:05 Sedation plan: IV Moderate Sedation Versed, Fentanyl 9:21:22 Fentanyl 50 mcg I.V. was administered by Guera Gandhi RN; for sedation; 9::26 Versed 1 mg I.V. was administered by Guera Gandhi RN; for sedation; 9::29 Fentanyl 50 mcg I.V. was administered by Guera Gandhi RN; for sedation; 9:22:32 Versed 1 mg I.V. was administered by Guera Gandhi RN; for sedation; 9:23:46 Fentanyl 25 mcg I.V. was administered by Guera Gandhi RN; for sedation; 9:23:50 Versed 0.5 mg I.V. was administered by Guera Gandhi RN; for sedation; 9:24:54 Procedure started. 9:24:59 Local anesthetic to right femoral artery with Lidocaine 2% by Dylan Browning MD.INITIAL ACCESS ONLY 9:25:40 Fentanyl 25 mcg I.V. was administered by Guera Gandhi RN; for sedation; 9:25:51 Versed 0.5 mg I.V. was administered by Gueragracie Gandhi RN; for sedation; 9:26:03 A 5 Fr sheath was inserted into the Right Femoral artery 9:26:11 A Cordis 5Fr Pigtail Catheter (MP) was advanced over the wire and used for LV Angiography. 9:26:28 LV gram done using NGUYEN 9:26:30 Injector settings: Ml/sec: 5, Volume: 15, 9:26:40 EF : 40 % 9:26:42 Catheter removed. 9:27:01 A Cordis 5Fr JL 4.0 Catheter (MP) was advanced over the wire and used for Left Coronary Angiography. 9:28:21 Catheter removed. 9:28:45 Terumo 6Fr [place] Sheath opened to sterile field. 9:28:46 Tapactive BasixCompak Inflation Kit opened to sterile field. 9:28:46 Garcia Whisper J 300cm 0.014 guide wire opened to sterile field. 9:29:56 A Cordis 5Fr 3DRC Catheter (MP) was advanced over the wire and used for Internal mammary arteriography.to LAD 9:29:59 Catheter removed. 9:30:20 A Diagnostic Infinity 5Fr AR 2 MOD catheter was advanced over the wire and used for SVG Angiography.to OM 9:30:27 Fentanyl 25 mcg I.V. was administered by Guera Gandhi RN; for sedation; 9:30:30 Versed 0.5 mg I.V. was administered by Guera Gandhi RN; for sedation; 9:31:15 A Diagnostic Infinity 5Fr AR 2 MOD catheter was advanced over the wire and used for Right Coronary Angiography. 9:31:44 Catheter removed. 9:31:51 Sheath upsized to a 6 Fr Short. 9:31:57 6 Fr XBLAD 3.5 guide catheter was inserted over the wire 9:32:07 Cordis 6FR XBLAD 3.5 guide catheter opened to sterile field. 9:32:56 Whisper wire advanced. 9:33:07 Heparin Bolus 4000 units I.V. was administered by Guera Gandhi RN; for anticoagulation; 9:34:49 Inflation Number: 1 A [place] OTW 3.5 x 12 stent was prepped and advanced across the Prox CX. The stent was deployed at 23 PRISCILA for 0:11 (min:sec). 9:35:01 Stent catheter was removed intact over wire. 9:35:04 Wire removed. 9:35:04 Guide catheter removed. 9:35:30 Procedure ended.(Physican Out) 9:35:49 Integrilin (Bolus 2mg/ml) 10.7 ml I.V. was administered by Guera Gandhi RN; for anticoagulation; 9:35:54 Fluoroscopy time 02.90 minutes. 9:36:00 Flurop Dose total: 1367 9:36:00 Fluoroscopy dose: 1367 mGy 9:36:03 Contrast amount:Isovue 300 93ml. 9:36:04 Sharps counted by scrub and verified by R.N. 9:36:06 Insertion/operative site no bleeding no hematoma. 9:36:09 Post-op/insertion site Right Femoral artery dressed using a 4 x 4 and Tegaderm. 9:36:11 Post right femoral artery:stable, clean and dry 9:36:13 Post Procedure Pulses reassessed and unchanged 9:36:15 Post-procedure physical assessment completed. ASA score P 2 - A patient with mild systemic disease as per Dylan Browning MD. 9:36:17 Post procedure rhythm: unchanged. 9:36:20 Estimated blood loss: 10 ml 9:36:21 Post procedure instruction explained to patient.Patient verbalizes understanding. 9:36:21 Patient needs reinforcement of post procedure teaching. 9:36:46 Procedure type changed to Cath procedure, Diagnostic procedure, LHC, LHC w/Coronaries w/Grafts, PCI procedure, Coronary Stent Initial, Miscellaneous Procedures, Moderate Sedation up to 30 minutes 9:36:53 Procedure Complication : No complications 9:36:55 See physician's report for complete and final results. 9:37:32 Cordis 6Fr Exoseal opened to sterile field. 9:38:15 Procedure and supply charges have been captured, reviewed, submitted and are correct. 9:41:36 Vital chart was stopped 9:41:51 Report given to PCU. 9:41:55 Patient transfered to PCU with Bed. 9:42:01 Procedure ended. 9:42:01 Full Disclosure recording stopped 9:42:09 End room use (Document Last) Intervention Summary Intervention Notes Time ActionType Lesion and Equipment Action# Pressure Duration Attributes Used 9:34:49 Place stent Prox CX Rolly OTW 1 23 00:11 3.5 x 12 stent Device Usage Item Name Manufacture Quantity Catalog Hospital Part Current Minima l Lot# / Number Charge Number Stock Stock Serial# Code Acist Acist 1 96099 401899 697105 158072 20 Syringe Medical [employer] Inc Bag Microtek 1 2002S 475220 22643 409557 5 [employer] Medline Cardinal 1 [id number] 752905 81716 485678 5 Cath Pack Health Terumo 5Fr Terumo 1 JGM352 796176 666105 696559 [address] R[address] St Ronal 1 428827 164135 664800 251366 30 260cm J .035 wire Acist Hand Acist 1 33630 795906 520674 436969 5 Control Medical Systems Inc Acist Acist 1 56248 724477 686209 296908 5 Manifold Medical Systems Inc Diagnostic Cardinal 1 [id number] 482613 37579 902349 30 Dev4X 5Fr Multipack catheter Tegaderm 4 3M 1 1626W 450870 427910 451888 5 x 4 Cordis 5Fr Cardinal 1 378314 5 Pigtail Health Catheter (MP) Cordis 5Fr Cardinal 1 931408 5 JL 4.0 Health Catheter (MP) Cordis 5Fr Cardinal 1 371520 5 3DRC Health Catheter (MP) Terumo 6Fr Terumo 1 ZCD518 392271 534554 127225 40 Milford Sheath Merit Merit 1 UN6484 098725 948537 875891 15 BasixComJiffk Medical Inflation Kit Garcia Garcia 1 [id number] 985117 561752 686236 5 [facility] J Vascular 300cm 0.014 guide wire Diagnostic Cardinal 1 [id number] 738999 852330 791682 20 Infinity Health 5Fr AR 2 MOD catheter Cordis 6FR Cardinal 1 [id number] 740076 720536 362078 10 XBLAD 3.5 Health guide catheter [place] OTW Medtronic 1 [id number] 485587 8013455 325701 5 [id number] 3.5 x 12 stent Cordis 6Fr Cardinal 1 EX600 414647 602384 943666 10 [facility] EasyProperty Signature Audit Lucas Stage Time Signature Unsigned Intra-Procedure 01/22/2017 Holly 9:42:28 AM Counts RT(R) Signatures Monitor : Holly Signature : Counts RT Date : Time : [id number] [place] [address]
[2017-01-21 00:40] LABS: HEMATOCRIT 30.5 % (42.0-54.0); HEMOGLOBIN 9.2 g/dL (13.5-17.5); LYMPHOCYTES 25.2 % (15-50); MCH 22.3 pg (26.0-34.0); MCHC 30.2 g/dL (31.0-37.0); MCV 73.8 fL (80.0-100.0); MEAN PLATELET VOLUME 10.3 fL (7.4-10.4); NEUTROPHILS 64.7 % (40-80); PLATELET COUNT 194 10x3/uL (130-400); RBC 4.13 10x6/uL (4.20-6.10); RDW 16.4 % (11.5-14.5); WBC 6.7 10x3/uL (4.8-10.8)
[2017-01-21 01:01] LABS: ALBUMIN 3.7 g/dL (3.4-5.0); ALKALINE PHOSPHATASE 84 U/L (46-116); ALT (SGPT) 17 U/L (10-68); CALC OSMOLALITY 285 mosm/kg (275-300); CALCIUM 8.8 mg/dL (8.5-10.1); CHLORIDE - SERUM 106 mmol/L (98-107); CREATININE - SERUM 1.7 mg/dL (0.6-1.3); GLUCOSE 123 mg/dL (74-106); POTASSIUM - SERUM 4.1 mmol/L (3.5-5.1); PROTEIN - SERUM 6.8 g/dL (6.4-8.2); SODIUM 141 mmol/L (136-145); UREA NITROGEN 25 mg/dL (7-18); eGFR NON AFRICAN AMERICAN 46 mL/min (90-120)
[2017-01-21 01:24] LABS: CHOL - HDL RATIO 3.7 ratio (2.3-4.9); CHOLESTEROL, TOTAL 126 mg/dL (0-200); CKMB 0.7 U/L (0.0-3.6); CREATINE KINASE 138 UL (21-232); HDL CHOLESTEROL 34 mg/dL (32-96); LDL CHOLESTEROL 50 mg/dL (0-100); LDL-HDL RATIO 1.5 ratio (1.5-3.5); TRIGLYCERIDE 210 mg/dL (30-200); TROPONIN-I < 0.017 ng/mL (0.000-0.060)
--- NOTE | 2017-01-21 02:42 | NUR ---
REPORT RECEIVED FROM MAXIME ARREDONDO.
[2017-01-21 03:39] VITALS: BP 114/63; BMI 38.0
[2017-01-21 06:31] LABS: CKMB 0.7 U/L (0.0-3.6); CREATINE KINASE 109 UL (21-232); TROPONIN-I < 0.017 ng/mL (0.000-0.060)
--- NOTE | 2017-01-21 06:42 | NUR ---
NO CHANGES FROM PREVIOUS ASSESSMENT, CALL LIGHT IN REACH. REMAINS NPO
--- NOTE | 2017-01-21 07:25 | NUR ---
PATIENT IS UP AD PATRICK. NO NEED FOR SCD.
--- NOTE | 2017-01-21 07:30 | NUR ---
RESTING QUIETLY DENIES ANY NEEDS OR DISCOMFORT NAD NOTED
--- NOTE | 2017-01-21 07:44 | NUR ---
ASSESSMENT DONE. DENIES NEEDS.
[2017-01-21 07:56] LABS: ANION GAP 15.5 mmol/L (8-16); CALCIUM 8.3 mg/dL (8.5-10.1); CARBON DIOXIDE 24.9 mmol/L (21.0-32.0); CREATININE - SERUM 1.5 mg/dL (0.6-1.3); POTASSIUM - SERUM 4.4 mmol/L (3.5-5.1)
[2017-01-21 10:34] VITALS: BP 108/69
[2017-01-21 11:47] LABS: CKMB 0.8 U/L (0.0-3.6); CREATINE KINASE 113 UL (21-232); TROPONIN-I < 0.017 ng/mL (0.000-0.060)
[2017-01-21 12:00] VITALS: BP 105/64
[2017-01-21 16:34] VITALS: BP 127/64
--- NOTE | 2017-01-21 16:57 | NUR ---
WITHOUT CHANGES OR DISTRESS NOTED AT THIS TIME. DENIES NEEDS, AT SIDE.
[2017-01-21 17:26] LABS: CKMB 0.6 U/L (0.0-3.6); CREATINE KINASE 90 UL (21-232)
[2017-01-21 17:27] LABS: TROPONIN-I < 0.017 ng/mL (0.000-0.060)
[2017-01-21 19:00] VITALS: BP 121/64
--- NOTE | 2017-01-21 20:20 | NUR ---
BS 209, COVERED WITH 2 UNITS OF REGULAR INSULIN, WHICH IS 1/2 OF ORDERED DOSE, 1/2 OF ORDERED DOSE GIVEN DUE TO PT BEING NPO AFTER MN FOR CARDIAC CATH IN AM PT AND AT BED SIDE AGREED WITH THIS REASONING. NO NEEDS AT THIS TIME, BED LOW, CL IN REACH.
[2017-01-22] VITALS: BP 130/74
--- NOTE | 2017-01-22 00:09 | NUR ---
ELECTRONICS TECHNOLOGY INSTRUCTOR AT BED SIDE TO OBTAIN VITALS.
--- NOTE | 2017-01-22 01:29 | NUR ---
MORPHINE 4 MG AND ZOFRAN 4 MG GIVEN AT PT REQUEST FOR C/O PAIN AND NUASEA.
--- NOTE | 2017-01-22 03:00 | NUR ---
PT RESTING IN BED WITH NO DISTRESS. RESPS EVEN/NONLABORED. MONITOR AND CPOC. CALL LIGHT IN REACH. BED LOW.
--- NOTE | 2017-01-22 03:09 | NUR ---
RESTING WITH EYES CLOSED, RESPERATIONS EVEN, NO S/S DISTRESS NOTED.
[2017-01-22 04:00] VITALS: BP 138/66
--- NOTE | 2017-01-22 06:10 | NUR ---
CONSENTS SIGNED FOR CARDIAC CATH, WITTNESSED AND PLACED IN CHART.
[2017-01-22 08:23] VITALS: BP 121/73
[2017-01-22 08:46] LABS: BASOPHILS 0.4 % (0-2); EOSINOPHILS 1.6 % (0-7); HEMATOCRIT 35.1 % (42.0-54.0); HEMOGLOBIN 10.2 g/dL (13.5-17.5); IMMATURE GRANULOCYTES 0.4 % (0-5); LYMPHOCYTES 36.3 % (15-50); MCHC 29.1 g/dL (31.0-37.0); MEAN PLATELET VOLUME 10.7 fL (7.4-10.4); MONOCYTES 9.5 % (2-11); NEUTROPHILS 51.8 % (40-80); PLATELET COUNT 189 10x3/uL (130-400); RBC 4.63 10x6/uL (4.20-6.10); RDW 17.1 % (11.5-14.5); WBC 5.5 10x3/uL (4.8-10.8)
[2017-01-22 08:51] LABS: MCV 75.8 fL (80.0-100.0)
--- NOTE | 2017-01-22 09:00 | NUR ---
TO MEDICAL ADMINISTRATOR PER BED
[2017-01-22 09:15] LABS: CALCIUM 8.5 mg/dL (8.5-10.1); CARBON DIOXIDE 29.6 mmol/L (21.0-32.0); CREATININE - SERUM 1.2 mg/dL (0.6-1.3); POTASSIUM - SERUM 4.6 mmol/L (3.5-5.1)
--- NOTE | 2017-01-22 10:20 | NUR ---
BACK FROM MEDICAL BILLING INSTRUCTOR. RIGHT GROIN SOFT WITH DRSG DRY AND INTACT. V/S STABLE. C/0 HEART BURN. [place] GIVEN FOR RELIF. PPP. TELEMERTY SHOW SR
[2017-01-22 10:23] VITALS: Ht 177.8 cm; Wt 118.0 kg
--- NOTE | 2017-01-22 12:52 | NUR ---
LYING QUIETLY. RIGHT GROIN SOFT WITH DRSG DRY AND INTACT. PPP. FAMILY AT BEDSIDE.TELEMERTY SHOWS SR. WILL MONITOR
--- NOTE | 2017-01-22 16:20 | NUR ---
PT DISCHARGED. IV DCD WITH TIP INTACT. RIGHT GROIN SOFT WITH DRSG DRY AND INTACT. PPP. TO PRIVATE CAR PER WHEELCHAIR
--- NOTE | 2017-01-31 12:22 | DS ---
PATIENT:SERINA SAENZ :68 MEDICAL RECORD: [id number] DISCHARGE SUMMARY ADMISSION DATE: 01/21/17 DISCHARGE DATE: 01/22/17 DATE OF DISCHARGE: 01/22/2017 DISCHARGE DIAGNOSES: 1. Unstable angina. 2. Coronary artery disease. 3. Percutaneous transluminal coronary angioplasty stent of the left circumflex this admission. 4. Hypertension. 5. Hyperlipidemia. HOSPITAL COURSE: Mr. Saenz presents with unstable anginal symptomatology, found to have significant disease of the [place] circumflex, underwent successful PTCA stent of this territory. He had an uneventful postop course. He was discharged home with no change in his medications as he is already on aspirin and Plavix. He will follow up with [facility] in 1 month. TRANSINT:[id number] Voice Confirmation ID: [id number] DOCUMENT ID: [id number] ARTURO GRANADOS MD at 1222 CC: [id number] DICTATION DATE: 01/22/17 0939 HEAD WAITER: 01/22/17 1016 [facility] CLI 01/22/[address] [address]
--- NOTE | 2017-01-31 12:22 | OP ---
PATIENT NAME: SERINA SAENZ MEDICAL RECORD: [id number] :68 LOCATION:D.OPS ADMISSION DATE: SURGEON: ARTURO GRANADOS MD DATE OF OPERATION: 01/22/2017 PROCEDURES: 1. PTCA stent left circumflex. 2. Left heart catheterization. 3. Selective coronary angiography. 4. Vein graft angiography. 5. GARCIA angiography. 6. Left ventriculogram. INDICATION: Unstable angina and coronary artery disease. PROCEDURE IN DETAIL: After informed consent was obtained and after a detailed explanation of the risks, benefits as well as alternative therapies, the patient elected to proceed with angiogram and angioplasty. The right femoral area is prepped and draped in normal sterile fashion. The right femoral artery was cannulated via modified Seldinger technique with the placement of 6-[place] sheath. All catheters exchanged through this sheath. FINDINGS: The left ventriculogram was performed in standard 30-degree NGUYEN view, reveals mild global hypokinesis, ejection fraction 40%. SELECTIVE CORONARY ANGIOGRAPHY: 1. Left main is with no significant angiographic disease. 2. Left anterior descending is totally occluded. 3. GARCIA to the LAD is widely patent. Distal LAD is widely patent. 4. The left circumflex has previously placed stents. There is up to 80% in-stent restenosis proximally. After this, the circumflex first obtuse marginal was totally occluded. 5. Vein graft to the obtuse marginal was widely patent. Distal obtuse marginal is widely patent. 6. The right coronary is widely patent. The previously placed stents are widely patent with no significant restenosis. PTCA STENT OF THE LEFT CIRCUMFLEX: The stent used is a 3.5 x 12 mm Rolly, taken to 21 atmospheres. Result was 0% residual stenosis. OVERALL IMPRESSION: Successful percutaneous transluminal coronary angioplasty stent of the left circumflex going from 80% in-stent restenosis to 0% residual stenosis. TRANSINT:[id number] Voice Confirmation ID: [id number] DOCUMENT ID: [id number] ARTURO GRANADOS MD at 1222 CC: [id number] DICTATION DATE: 01/22/17 0941 MIS MANAGER: 01/22/17 0950 [facility] CLI 01/22/17 [place] [address]
--- NOTE | 2017-01-31 12:22 | HP ---
PATIENT: SERINA SAENZ MEDICAL RECORD: [id number] ACCOUNT: [id number] LOCATION:[facility] : 68 ADMISSION DATE: 01/21/17 HISTORY AND PHYSICAL EXAMINATION ADMITTING DIAGNOSES: 1. Angina, unstable. 2. Coronary artery disease. 3. Previous percutaneous transluminal coronary angioplasty stent. 4. Previous bypass surgery. 5. Ufj-tntgckr-bfggoudku diabetes. 6. Hypertension. HISTORY OF PRESENT ILLNESS: Mr. Saenz presents with increasing anginal symptomatology. His last cardiac catheterization was in October. At that time, he had PTCA stent for in-stent restenosis of the lummi circumflex. He had patency of the GARCIA to the LAD, right coronary had previously placed stents, these were widely patent. He had a vein graft to the ramus intermedius, this is as well widely patent. His chest pain started last 2 days, very severe, worsened pain with a heart attack. He is continuing on his aspirin and Plavix. Heart rate and blood pressure are optimal. He continues to have the chest pain., PHYSICAL EXAMINATION: GENERAL APPEARANCE: Well-nourished, well-developed, appears stated age. Level of distress, comfortable. PSYCHIATRIC: Mental status, alert, normal affect. Orientation, oriented to time, place and person. EYES: Lids and conjunctiva, noninjected. No discharge, no pallor. ENT: Lips, teeth, gums, normal dentition. Oropharynx, no cyanosis, no pallor. NECK: Carotid arteries, bilateral normal upstroke, no bruits, no thrills. JUGULAR VEINS: No jugular venous pressure or distention. CERVICAL LYMPH NODES: Nontender, nonenlarged. THYROID: Not enlarged. Nontender. No nodules. LUNGS: Respiratory effort, unlabored. CHEST: Normal curvature. No thoracic deformity. No chest wall tenderness. Percussion, resonant. Auscultation, clear. No wheezes, no rales, no rhonchi. CARDIOVASCULAR: Precordial exam, nondisplaced. No heaves or pericardial thrills. Rate and rhythm, regular. Heart sounds, normal S1, normal S2. No S3, no gallop, no rub. Systolic murmur, not heard. Diastolic murmur, not heard. EXTREMITIES: No cyanosis, no edema. Peripheral pulses, full and equal in all extremities, except as noted. No bruits appreciated. ABDOMEN: Soft, nondistended. Normal aorta. No bruit. Nontender. No masses. Liver, nontender, no hepatomegaly. Spleen, nontender, no splenomegaly. MUSCULOSKELETAL: No joint tenderness. No joint swelling. No erythema. NEUROLOGICAL: Normal gait, normal strength, normal tone. SKIN: Warm and dry. REVIEW OF SYSTEMS: The patient reports easy bruising but reports no swollen glands. The patient reports no fever, no night sweats, no significant weight gain, no significant weight loss. No significant exercise tolerance. The patient reports no dry eyes, no irritation, no vision change. Patient reports no difficulty hearing and no ear pain. Patient reports no frequent nose bleeds or nose and sinus problems. Patient reports on arm pain on exertion. No shortness of breath while lying down. No history of heart murmur. Patient reports no cough, no wheezing or coughing up blood. Patient reports no HISTORY AND PHYSICAL [id number] SERINA SAENZ abdominal pain, no vomiting. Normal appetite. No diarrhea and not vomiting blood. No nausea and no constipation. Patient reports no incontinence. No difficulty urinating. No hematuria. No increased frequency. Patient reports no muscle aches. No weakness, no arthralgias, no back pain. No swelling of the extremities. Patient reports no abnormal mole, no jaundice, no rashes. Reports no loss of consciousness. No weakness and no numbness. No seizures, dizziness, or headaches. The patient reports no depression, no sleep disturbance, feeling safe in a relationship and no alcohol abuse. Patient reports on fatigue. Reports no runny nose or sinus pressure. No itching, no hives, and no frequent sneezing. OVERALL IMPRESSION: Anginal symptomatology in an unstable fashion. We will proceed with repeat coronary angiography. Further care depends upon findings of the angiography. TRANSINT:[id number] Voice Confirmation ID: [id number] DOCUMENT ID: [id number] ARTURO GRANADOS MD at 1222 CC: [id number] DICTATION DATE: 01/21/17 1031 JANITOR CLEANER: 01/21/17 1043 DEP CLI 01/22/17 [place] [address]
== END 2017-01-22 16:22 | disposition home or self-care (01) ==
LOC: OBSVTIME → D.ER 00:25 → D.OPS 00:25 → OBSVTIME 02:13 → D.ER 02:13 → D.M2 02:13 → EDSTATUS 01-22 09:00 → D.OPS 01-22 16:22 → D.M2 01-22 16:22
PROVIDERS: Emergency Medicine; Internal Medicine Interventional Cardiology
DX: I25.110 Atherosclerotic heart disease of native coronary artery with unstable angina pectoris (principal); I10 Essential (primary) hypertension; E78.5 Hyperlipidemia, unspecified; E11.9 Type 2 diabetes mellitus without complications; Z95.1 Presence of aortocoronary bypass graft; Z01.812 Encounter for preprocedural laboratory examination
CPT/HCPCS: 93459; C9600

== ENCOUNTER 2017-02-27 22:27 | Inpatient (IN) | payer MEDICARE ==
[2017-02-27 22:55] LABS: BASOPHILS 0.3 % (0-2); EOSINOPHILS 1.9 % (0-7); HEMATOCRIT 27.3 % (42.0-54.0); HEMOGLOBIN 8.1 g/dL (13.5-17.5); IMMATURE GRANULOCYTES 0.2 % (0-5); LYMPHOCYTES 26.5 % (15-50); MCH 21.6 pg (26.0-34.0); MCHC 29.7 g/dL (31.0-37.0); MCV 72.8 fL (80.0-100.0); MEAN PLATELET VOLUME 10.8 fL (7.4-10.4); MONOCYTES 10.1 % (2-11); PLATELET COUNT 187 10x3/uL (130-400); RBC 3.75 10x6/uL (4.20-6.10); RDW 16.9 % (11.5-14.5); WBC 5.9 10x3/uL (4.8-10.8)
[2017-02-27 23:05] LABS: ALBUMIN 3.3 g/dL (3.4-5.0); ALKALINE PHOSPHATASE 86 U/L (46-116); ALT (SGPT) 20 U/L (10-68); BILIRUBIN - TOTAL 0.25 mg/dL (0.2-1.3); CALC OSMOLALITY 279 mosm/kg (275-300); CALCIUM 8.3 mg/dL (8.5-10.1); CARBON DIOXIDE 27.7 mmol/L (21.0-32.0); CHLORIDE - SERUM 107 mmol/L (98-107); CREATININE - SERUM 1.2 mg/dL (0.6-1.3); GLUCOSE 128 mg/dL (74-106); POTASSIUM - SERUM 3.8 mmol/L (3.5-5.1); PROTEIN - SERUM 6.7 g/dL (6.4-8.2); SODIUM 140 mmol/L (136-145); UREA NITROGEN 11 mg/dL (7-18); eGFR NON AFRICAN AMERICAN 69 mL/min (90-120)
[2017-02-27 23:15] LABS: CHOL - HDL RATIO 3.2 ratio (2.3-4.9); CHOLESTEROL, TOTAL 116 mg/dL (0-200); CKMB 0.6 U/L (0.0-3.6); CREATINE KINASE 84 UL (21-232); HDL CHOLESTEROL 36 mg/dL (32-96); LDL CHOLESTEROL 61 mg/dL (0-100); LDL-HDL RATIO 1.7 ratio (1.5-3.5); TRIGLYCERIDE 98 mg/dL (30-200)
[2017-02-27 23:16] LABS: TROPONIN-I < 0.017 ng/mL (0.000-0.060)
[2017-02-28] VITALS: BP 206/95
--- NOTE | 2017-02-28 00:27 | NUR ---
REPORT RECEIVED FROM KEVEN ARREDONDO.
[2017-02-28 01:12] VITALS: BMI 40.8
--- NOTE | 2017-02-28 01:39 | NUR ---
NITRO PASTE APPLIED TO LEFT CHEST WALL FOR CHEST PAIN 8:10. WILL CONTINUE TO MONITOR.
[2017-02-28 04:00] VITALS: BP 165/97
--- NOTE | 2017-02-28 04:59 | NUR ---
CALL LIGHT IN REACH. WILL CONTINUE WITH PLAN OF CARE.
[2017-02-28 08:23] VITALS: BP 130/85
--- NOTE | 2017-02-28 09:25 | NUR ---
TELEMETRY SR WITH PACS NOTED. MORPHINE GIVEN FOR C/O C/P. WILL MONITOR.
--- NOTE | 2017-02-28 11:08 | NUR ---
1ST UNIT PRBC STARTED. VS WNL. LINE IS PATENT.
[2017-02-28 11:59] VITALS: BP 161/81
--- NOTE | 2017-02-28 13:10 | NUR ---
1ST UNIT PRBS COMPLETED WITHOUT ADVERSE REATIONS NOTED.
--- NOTE | 2017-02-28 14:12 | NUR ---
2ND UNIT BLOOD INFUSING WITHOUT ADVERSE REACTIONS NOTED.
--- NOTE | 2017-02-28 16:14 | NUR ---
SCD'S ON BILATERAL LE
[2017-02-28 16:23] VITALS: BP 157/87
--- NOTE | 2017-02-28 19:24 | NUR ---
RESUMED CARE OF PT, UP IN ROOM RESPIRATIONS EVEN AND UNLABORED ON ROOM AIR. 82 SR WITH BBB AND PACS. RIGHT HAND SALINE LOCKED. COMPAINS OF HEADACHE, THINKS IT'S FROM NITRO PATCH. CALL LIGHT IN REACH. WILL CONTINUE TO MONITOR. SEE NURSE ASSESSMENT.
[2017-02-28 20:00] VITALS: BP 145/83
--- NOTE | 2017-02-28 23:51 | NUR ---
IV REMOVED ACCIDENTALLY, TIP INTACT. WILL CONTINUE TO MONTIOR.
[2017-03-01] VITALS: BP 152/90
--- NOTE | 2017-03-01 01:19 | NUR ---
PLAN OF CARE DISCUSSED, PT REFUSING NEW IV AT THIS TIME BECAUSE OF POSSIBLE DISCHARGE IN AM. WILL CONTINUE TO MONITOR. CALL LIGHT IN REACH.
[2017-03-01 04:00] VITALS: BP 155/90
[2017-03-01 05:34] LABS: BASOPHILS 0.2 % (0-2); EOSINOPHILS 2.2 % (0-7); HEMOGLOBIN 9.3 g/dL (13.5-17.5); IMMATURE GRANULOCYTES 0.4 % (0-5); LYMPHOCYTES 26.5 % (15-50); MCH 22.8 pg (26.0-34.0); MEAN PLATELET VOLUME 10.8 fL (7.4-10.4); NEUTROPHILS 59.7 % (40-80); PLATELET COUNT 150 10x3/uL (130-400); RBC 4.08 10x6/uL (4.20-6.10); RDW 17.3 % (11.5-14.5); WBC 5.6 10x3/uL (4.8-10.8)
[2017-03-01 05:53] LABS: ANION GAP 8.1 mmol/L (8-16); CALCIUM 8.1 mg/dL (8.5-10.1); CREATININE - SERUM 1.3 mg/dL (0.6-1.3); POTASSIUM - SERUM 4.1 mmol/L (3.5-5.1)
--- NOTE | 2017-03-01 07:15 | NUR ---
ASSESSMENT COMPLETED. TELEMERTY SHOWS SR 74. ALERT AND ORIENTED, 02 AT 2 L/M PER NC. SCDS ON. FAMILY AT BED SIDE. DENIES ANY NEEDS AT PRESENT TIME. SR UP WITH CALL LIGHT IN REACH
[2017-03-01 08:03] VITALS: BP 172/95
--- NOTE | 2017-03-01 11:02 | NUR ---
RESTING QUIETLY. MONITOR SHOWS NSR @ 87. WILL CONTINUE TO MONITOR.
[2017-03-01 12:38] VITALS: BP 132/92
--- NOTE | 2017-03-01 12:47 | NUR ---
LYING QUIETLY. DENIES ANY NEEDS. FAMILY AT BEDSIDE. DENIES ANY CHEST PAIN
[2017-03-01 14:57] LABS: % SATURATION 6 % (15-55); IRON 30 ug/dl (35-150); TOTAL IRON BIND CAPACITY 467 ug/dl (260-445); UNSAT IRON BIND CAPACITY 437 ug/dl (150-375)
[2017-03-01] MEDS ORDERED: COZAAR25 MG PO (15:22)
--- NOTE | 2017-03-01 16:01 | NUR ---
Patient Name: SERINA SAENZ Admission Status: ER Accout number: [id number] Admission Date: 02-28-2017 : 1970 Admission Diagnosis:CHEST PAIN, UNSPECIFIED Attending: JANEL KINGSLEY Current LOS: 1 Anticipated DC Date: 03-01-2017 Planned Disposition: Home Primary Insurance: MEDICARE A & B Discharge Planning Comments: * Is the patient Alert and Oriented? Yes 0 * How many steps to enter\exit or inside your home? 4 0 * PCP DR. FRANKS 0 * Pharmacy [facility] 0 * Preadmission Environment Home with Family 0 * ADLs Independent 0 * Equipment None 0 * Other Equipment NO MEDICAL EQUIPMENT PROVIDER PREFERENCE 0 * List name and contact numbers for known caregivers / representatives who currently or will assist patient after discharge: SANDRA SAENZ, SPOUSE, 0 * Community resources currently utilized None 0 * Please name any agencies selected above. NONE 0 * Additional services required to return to the preadmission environment? No 0 * Can the patient safely return to the preadmission environment? Yes 0 * Has this patient been hospitalized within the prior 30 days at any hospital? No 0 CM MET WITH PT IN ROOM TO DISCUSS DISCHARGE PLANNING AND NEEDS. PT REPORTS LIVING AT HOME INDEPENDENTLY WITH SPOUSE. PT HAS NO MEDICAL EQUIPMENT AND NO OUTSIDE SERVICES ASSISTING IN THE HOME. CM DISCUSSED AVAILABILITY OF HOME HEALTH, REHAB SERVICES AND MEDICAL EQUIPMENT. PT DENIES DISCHARGE NEEDS, REPORTS HIS SPOUSE WILL TRANSPORT HER HOME FOR DISCHARGE. PT REPORTS HE DOES NOT WANT HOU[facility]ALL[facility] SERVICE; CM NOTIFED ANTIONE COOK WHO INFORMED CM THAT PT CAN REFUSE [facility] WHEN THE CALL TO FOLLOW UP AFTER DISCHARGE. RADIATOR MECHANIC NURSE NOTIFIED. Promotion Specialist: Jesus Chavarria
[2017-03-01 16:14] VITALS: BP 165/92
--- NOTE | 2017-03-01 17:43 | NUR ---
IV STARTED IN [facility] WITH 22 FLORIDALMA CATH. UP IN CHAIR FOR DIET. WILL MONITOR
[2017-03-01 20:00] VITALS: BP 182/92
--- NOTE | 2017-03-01 20:11 | NUR ---
PT AWAKE, ALERT, ORIENTED, AT BEDSIDE. PT DENIES ANY NEEDS AT THIS TIME. CONTINUE TO MONITOR CLOSELY. BED LOW, CALL LIGHT IN REACH, SIDE RAILS X 2, HOB 35 DEGREES.
--- NOTE | 2017-03-01 23:34 | NUR ---
PT AWAKE, ALERT, ORIENTED, STATES HE IS STILL HAVING ACTIVE CHEST PAIN EVEN WITH THE NITRO PASTE. PRN MORPHINE GIVEN. REMAINS AT BEDSIDE. PT TO CALL WITH ANY NEEDS. PER PT REQUEST, WE ARE HOLDING PT NPO AFTER MIDNIGHT FOR THE POSSIBILITY THAT DR. GRANADOS MAY WANT TO CARDIAC CATH HIM TOMORROW. PTS STATED THEY WERE NOT COMFORTABLE BEING D/C TODAY AND IF THEY DID GO HOME, THEY WOULD HAVE BEEN BACK TOMORROW IN THE ER SO THAT HER COULD BE SEEN BY DR. GRANADOS. PT STATES HE A CARDIAC CATH X 1 MONTH AGO WITH STENT PLACEMENT TO LAD. PT IS IN NO ACUTE DISTRESS AT THIS TIME. CONTINUE TO MONITOR CLOSELY.
[2017-03-02 04:00] VITALS: BP 131/92
[2017-03-02 08:28] VITALS: BP 165/85
--- NOTE | 2017-03-02 10:46 | NUR ---
DR GRANADOS CALLED. OD TO DC HOME. NO HEART CATH NEEDED AT THIS TIME.
[2017-03-02 11:51] VITALS: BP 158/80
--- NOTE | 2017-03-02 12:02 | NUR ---
IV AND TELEMETRY DCD. DC PLANS GIVEN. UNDERSTANDING VOICED. ESCORTED TO CAR BY W/C.
[2017-03-04 12:13] LABS: FOLATE (FOLIC ACID) - SERUM 3.6 ng/mL (>3.0)
--- NOTE | 2017-03-05 12:01 | CN ---
PATIENT NAME:SERINA SAENZ MEDICAL RECORD: [id number] : [birth year] LOCATION:[facility] D.2119 ADMIT DATE: 02/28/17 ACCOUNT: [id number] CONSULTING PHYSICIAN: IVORY ALBERTO MD REFERRING PHYSICIAN: JANEL FLORES MD DATE OF CONSULTATION: 02/28/2017 HISTORY OF PRESENT ILLNESS: A 46-year-old gentleman with a known history of coronary artery disease, status post intervention approximately 1 month ago. Since that time, he actually describes really not recovering, quite a bit of angina, marked dyspnea, shortness of breath, some lower extremity edema, was admitted with angina. He has a history of gastric bypass and has been on iron in the past. Admission laboratories show marked anemia. No elevation in enzymes. Suspect high-output angina/failure type symptomatology versus inflammatory status. PAST MEDICAL HISTORY: Includes: 1. History of hypertension. 2. Hyperlipidemia. 3. Coronary artery disease as described above. 4. Osteoarthritis. 5. Anxiety. 6. Diabetes mellitus. MEDICATIONS: Include Glucophage 1 gram b.i.d., glipizide 10 b.i.d., Protonix 40 every day, Lasix 20 every day, Zoloft 50 every day, Requip 0.5 at bedtime, Vershire 10/325 every 4 hours p.r.n., Neurontin 600 t.i.d., aspirin 325 every day, Ranexa 500 every day, atorvastatin 20 every day, Plavix 75 every day. ALLERGIES: KEFLEX. SOCIAL HISTORY: . Lives here in [place]. He is able to take care of ADLs. Nonsmoker. REVIEW OF SYSTEMS: The patient reports easy bruising but reports no swollen glands. The patient reports no fever, no night sweats, no significant weight gain, no significant weight loss. No significant exercise tolerance. The patient reports no dry eyes, no irritation, no vision change. Patient reports no difficulty hearing and no ear pain. Patient reports no frequent nose bleeds or nose and sinus problems. Patient reports on arm pain on exertion. No shortness of breath while lying down. No history of heart murmur. Patient reports no cough, no wheezing or coughing up blood. Patient reports no abdominal pain, no vomiting. Normal appetite. No diarrhea and not vomiting blood. No nausea and no constipation. Patient reports no incontinence. No difficulty urinating. No hematuria. No increased frequency. Patient reports no muscle aches. No weakness, no arthralgias, no back pain. No swelling of the extremities. Patient reports no abnormal mole, no jaundice, no rashes. Reports no loss of consciousness. No weakness and no numbness. No seizures, dizziness, or headaches. The patient reports no depression, no sleep disturbance, feeling safe in a relationship and no alcohol abuse. Patient reports on fatigue. Reports no runny nose or sinus pressure. No itching, no hives, and no frequent sneezing. PHYSICAL EXAMINATION: GENERAL: Pleasant gentleman in acute distress. Some pallor of the sclerae. CONSULT REPORT [id number] SERINA SAENZ VITAL SIGNS: Blood pressure 165/97, pulse 81 and regular. HEENT: Normocephalic, atraumatic. NECK: No bruits noted. HEART: Regular. A II/ systolic ejection murmur. Questionable S4. LUNGS: Good air excursion. ABDOMEN: Soft, nontender. EXTREMITIES: Pulses are 2+. No edema. NEUROLOGIC: Grossly intact. DIAGNOSTIC DATA: ECG without acute change. IMPRESSION: Suspect high-output angina/failure, maybe iron deficiency given microcytic indices. We will transfuse 2 units of packed red blood cells. Further recommendations after symptomatology improves of anemia. TRANSINT:[id number] Voice Confirmation ID: [id number] DOCUMENT ID: [id number] IVORY ALBERTO MD at 1201 CC: [id number] DICTATION DATE: 02/28/17824 HIGH [employer]CHOOL VICE PRINCIPAL: 02/28/17 1131 DIS IN 03/02/17 [id number] [place] [address]
== END 2017-03-02 12:06 | disposition home or self-care (01) | DRG 812 ==
LOC: D.ER 22:27 → D.M2 23:01 → OBSVTIME 23:01 → D.M2 02-28 13:18
PROVIDERS: Family Medicine; ADMIT Family Medicine
DX: D50.9 Iron deficiency anemia, unspecified (principal); I50.22 Chronic systolic (congestive) heart failure; I10 Essential (primary) hypertension; E78.5 Hyperlipidemia, unspecified; M19.90 Unspecified osteoarthritis, unspecified site; F41.9 Anxiety disorder, unspecified; F32.9 Major depressive disorder, single episode, unspecified; E11.40 Type 2 diabetes mellitus with diabetic neuropathy, unspecified; K21.9 Gastro-esophageal reflux disease without esophagitis; Z86.73 Personal history of transient ischemic attack (TIA), and cerebral infarction without residual deficits; Z95.5 Presence of coronary angioplasty implant and graft; Z95.1 Presence of aortocoronary bypass graft; Z87.891 Personal history of nicotine dependence; I25.119 Atherosclerotic heart disease of native coronary artery with unspecified angina pectoris

== ENCOUNTER 2017-09-06 16:15 | Observation (INO) | payer MEDICARE ==
[~2017-09-06] VITALS: Ht 177.8 cm; Wt 130.8 kg
--- NOTE | ~2017-09-06 | CN ---
PATIENT NAME:SERINA SAENZ MEDICAL RECORD: [id number] : [birth year] LOCATION:D.[facility] D.2116 ADMIT DATE: 09/06/17 ACCOUNT: [id number] CONSULTING PHYSICIAN: IVORY ALBERTO MD REFERRING PHYSICIAN: CHANELLE BRADFORD MD DATE OF CONSULTATION: 09/07/2017 HISTORY OF PRESENT ILLNESS: A 46-year-old gentleman with known history of coronary artery disease, status post coronary bypass grafting, most recently with intervention drug-eluting stent to the circumflex, history of mild myopathy 40%, admitted with exertional angina, it has been ongoing for the past 2-3 weeks by his report. He is anemic with microcytic indices, although this is actually at his typical levels of 9-9.5. PAST MEDICAL HISTORY: Includes; 1. History of coronary artery disease as described above. 2. Obesity, status post gastric bypass. 3. Dyslipidemia. 4. Hypertension. 5. Cardiomyopathy. 6. Osteoarthritis. 7. Diabetes mellitus. ALLERGIES: CEPHALEXIN. MEDICATIONS: Include Glucophage 1 gram b.i.d., Glucotrol 10 b.i.d., Protonix 40 daily, Lasix 20 daily, Zoloft 100 every day, Ranexa 500 b.i.d., losartan 25 daily, carvedilol 12.5 b.i.d., atorvastatin 20 daily, Plavix 75 daily, Flomax 4 daily. SOCIAL HISTORY: Nonsmoker, nondrinker. Does rather exercise, but not on a regular basis. REVIEW OF SYSTEMS: The patient reports easy bruising but reports no swollen glands. The patient reports no fever, no night sweats, no significant weight gain, no significant weight loss. No significant exercise tolerance. The patient reports no dry eyes, no irritation, no vision change. Patient reports no difficulty hearing and no ear pain. Patient reports no frequent nose bleeds or nose and sinus problems. Patient reports on arm pain on exertion. No shortness of breath while lying down. No history of heart murmur. Patient reports no cough, no wheezing or coughing up blood. Patient reports no abdominal pain, no vomiting. Normal appetite. No diarrhea and not vomiting blood. No nausea and no constipation. Patient reports no incontinence. No difficulty urinating. No hematuria. No increased frequency. Patient reports no muscle aches. No weakness, no arthralgias, no back pain. No swelling of the extremities. Patient reports no abnormal mole, no jaundice, no rashes. Reports no loss of consciousness. No weakness and no numbness. No seizures, dizziness, or headaches. The patient reports no depression, no sleep disturbance, feeling safe in a relationship and no alcohol abuse. Patient reports on fatigue. Reports no runny nose or sinus pressure. No itching, no hives, and no frequent sneezing. PHYSICAL EXAMINATION: GENERAL: Pleasant gentleman in no acute distress. VITAL SIGNS: Blood pressure 161/79, pulse 68 and regular. CONSULT REPORT [id number] SERINA SAENZ HEENT: Normocephalic, atraumatic. NECK: No JVD or bruit. HEART: Regular. LUNGS: Perkins clear. ABDOMEN: Soft, nontender. EXTREMITIES: Pulses 2+. No edema. NEUROLOGIC: Grossly intact. DIAGNOSTIC DATA: ECG shows nonspecific ST-T changes, high lateral leads. IMPRESSION: Unstable angina, hypertension, hyperlipidemia, diabetes mellitus. PLAN: Plan for angiography and intervention based on above. TRANSINT:[id number] Voice Confirmation ID: [id number] DOCUMENT ID: [id number] IVORY ALBERTO MD at 1132 CC: [id number] DICTATION DATE: 09/07/17 09 BAND MASTER: 09/07/17 1329 DIS IN 09/07/[address] [address]
--- NOTE | ~2017-09-06 | OP ---
PATIENT NAME: SERINA SAENZ MEDICAL RECORD: [id number] :68 LOCATION:D.M2 D.2116 ADMISSION DATE:09/06/17 SURGEON: IVORY ALBERTO MD DATE OF OPERATION: 09/07/2017 PROCEDURE: Left heart catheterization, selective coronary angiography, and right femoral approach. CATHETERS: A 5-Greenlandic sheath, 5/4 left and right Agustín, 5/4 pig. The procedure was well tolerated. The patient returned to [facility]ole. Sheath removed. Adequate hemostasis was obtained. FINDINGS: Left ventriculography in the 30-degree NGUYEN view, normal wall motion and normal systolic function. CORONARY ANATOMY: 1. LEFT MAIN: Left main is free of disease. 2. LAD: Fills circ for period of time, see competitive flow via the GARCIA. 3. CIRCUMFLEX: There is a OM of area of previous stent that is widely patent. The circumflex is then occluded distally. 4. RIGHT CORONARY ARTERY: Multiple stents that are widely patent. BYPASS GRAFTS: 1. Bypass graft to the distal OM and circumflex system is widely patent. 2. GARCIA to LAD is patent with good runoff. PLAN: Review of previous films, this OM is unchanged from previous, suspect component of high output angina with deconditioning, anemia, etc. No role for intervention. TRANSINT:[id number] Voice Confirmation ID: [id number] DOCUMENT ID: [id number] IVORY ALBERTO MD at 1132 CC: [id number] DICTATION DATE: 09/07/17 1059 CASTING AND PASTING SUPERVISOR: 09/07/17 1433 DIS IN 09/07/17 [address] [id number] [place] [id number]
--- NOTE | ~2017-09-06 | HEMODYNAMI ---
PATIENT:SERINA SAENZ MEDICAL RECORD: [id number] : 68 LOCATION:[facility].2116 ADMISSION DATE: 09/06/17 Generatedon:09/07/201710:57 Patient name: SERINA SAENZ Patient #: [id number] : 1970 Date of study: 09/07/2017 Page: Of Hemodynamic Procedure Report Patient Data Patient Demographics Procedure consent was obtained First Name: SERINA Gender: Male Last Name: LETTY : 1970 Middle Initial: RABIA Age: 46 year(s) Patient #: [id number] Race: SSN: [id number] Additional ID: [id number] Contact details Address: [address] [place] [address] State: [place] City: [place] Zip code: [address] Past Medical History Allergies Allergen Reaction Date Comments Reported Other allergy 06/10/2014 keflex Other allergy 04/19/2016 Keflex Other allergy 04/26/2016 keflex Other allergy 05/11/2016 Cephalexin, Monohydrate Other allergy 11/03/2016 cephalexin Monohydrate Other allergy 01/22/2017 keflex Other allergy 09/07/2017 Keflex Admission Admission Data Admission Date: 09/06/2017 Admission Time: 18:32 Room #: [facility]6 Procedure Procedure Types Cath Procedure Diagnostic Procedure LHC LHC w/Coronaries w/Grafts Sedation Charges Moderate Sedation up to 15 minutes Procedure Description Procedure Date Procedure Date: 09/07/2017 Procedure Start Time: 10:36 Procedure End Time: 10:56 Procedure Staff Name Function Jacobo Kirby MD Performing Physician Bertrand Gamble RT Monitor Jyothi Perkins RT Scrub Gwyn Meraz RN Nurse Procedure Data Cath Procedure Fluoroscopy Diagnostic fluoroscopy Total fluoroscopy Time: 3.6 time: 3.6 min min Diagnostic fluoroscopy Total fluoroscopy dose: 940 dose: 940 mGy mGy Contrast Material Contrast Material Type Amount (ml) Isovue 300 93 Entry Location Entry Primary Successful Side Size Upsize Upsize Entry Closure Cheng ccessful Closure Location (Fr) 1 (Fr) 2 (Fr) Remarks Device Remarks Femoral Right 5 Fr Manual Unable artery Compression to deploy closure device. Estimated blood loss: 5 ml Diagnostic catheters Device Type Used For End Catheter Placement MULTIPACK JL 4.0 5Fr Procedure catheter MULTIPACK 3DRC 5Fr Procedure catheter DIAGNOSTIC JB3 4Fr Procedure catheter ([id number]) MULTIPACK Pigtail 5 Fr Procedure catheter Procedure Complications No complications Procedure Medications Medication Administration Route Dosage Oxygen etCO2 Nasal cannula 2 l/min Heparin Flush Bag added to field 2 bags (1000units/500ml NS) 0.9% NaCl I.V. 100 ml/hr Plavix P.O. 75 mg Fentanyl I.V. 100 mcg Versed I.V. 2 mg Fentanyl I.V. 100 mcg Versed I.V. 2 mg Fentanyl I.V. 100 mcg Versed I.V. 2 mg Fentanyl I.V. 100 mcg Versed I.V. 2 mg Hemodynamics Rest Heart Rate: 74 (bpm) Pressure Samples Time Site Value (mmHg) Purpose Heart Use Rate(bpm) 10:48 LV 154/8,23 Snapshot 78 10:48 AO 144/84(108) Pullback 54 10:48 LV 146/20,22 Pullback 54 Gradients Valve Time Site 1 Site 2 Mean SEP/DFP Peak To Heart Use (mmHg) (sec/min) Peak Rate (mmHg) (bpm) Aortic 10:48 LV AO 8 13 2 54 146/20,22 144/84(108) Calculations Valve P-P Mean Valve Index Valve Source Name Gradient Area Flow (cm2) Aortic 2 8 2 8 Snapshots Pre Cath Intra NCS Post Cath Vital Signs Time Heart Resp SPO2 etCO2 NIBP (mmHg) Rhythm Pain Sedation Rate (ipm) (%) (mmHg) Status Level (bpm) 10:23:55 72 16 100 33.1 205/106(158) NSR 0 (11) 10(A) , No pain 10:28:50 74 17 99 42.1 193/106(168) NSR 0 (11) 10(A) , No pain 10:33:35 73 16 99 37.6 170/94(132) NSR 0 (11) 10(A) , No pain 10:38:30 71 18 98 33.9 175/80(141) NSR 0 (11) 10(A) , No pain 10:43:16 72 17 95 34.6 169/93(121) NSR 0 (11) 10(A) , No pain 10:48:05 76 15 94 40.6 166/92(126) NSR 0 (11) 10(A) , No pain 10:52:50 76 18 96 40.6 162/93(126) NSR 0 (11) 10(A) , No pain Medications Time Medication Route Dose Verified Delivered Reason Notes Effectiveness by by 10:22:23 Oxygen etCO2 2 Jacobo Gwyn Per physician Nasal l/min St Prateek Meraz RN cannula 10:22:33 Heparin Flush added 2 Jacobo Gwyn used for Bag to bags [facility] Prateek Meraz RN procedure (1000units/500ml field MG NS) 10:22:41 0.9% NaCl I.V. 100 Jacobo Gwyn Per physician ml/hr [facility] Prateek Meraz RN, MD 10:26:38 Plavix P.O. 75 mg Jacobo Gwyn for [facility] Prateek Meraz RN anticoagulation 10:31:43 Fentanyl I.V. 100 Jacobo Gwyn for sedation [facility] [place] [facility] Prateek Meraz RN, MD 10:31:51 Versed I.V. 2 mg Jacobo Gwyn for sedation [facility] Prateek Meraz RN, MD 10:33:57 Fentanyl I.V. 100 Jacobo Gwyn for sedation [facility] [place] [facility] Prateek Meraz RN, MD 10:33:59 Versed I.V. 2 mg Jacobo Gwyn for sedation St Prateek Meraz RN, MD 10:37:43 Fentanyl I.V. 100 Jacobo Gwyn for sedation [facility] [place] [facility] Prateek Meraz RN, MD 10:37:46 Versed I.V. 2 mg Jacobo Gwyn for sedation St Prateek Meraz RN, MD 10:40:41 Fentanyl I.V. 100 Jacobo Gwyn for sedation [facility] [place] [place] St Prateek Meraz RN, MD 10:40:44 Versed I.V. 2 mg Jacobo Gwyn for sedation St Prateek Meraz RN, MD Procedure Log Time Note 9:50:22 Jyothi Perkins RT(R) sent for patient. Start room use. 9:54:10 Time tracking: Call back (After hours or weekends) 9:54:17 Plan of Care:Hemodynamics will remain stable., Cardiac rhythm will remain stable., Comfort level will be maintained., Respiratory function will remain adequate., Patient/ family verbilizes understanding of procedure., Procedure tolerated without complication., Recovers from procedure without complications.. 9:54:28 Signed procedure consent form obtained from patient. 10:12:26 Patient received from Med II to CCL 1 Alert and oriented. Tansferred to table in Supine position. 10:12:27 Warm blankets applied, and yolande hugger turned on for patient comfort. 10:12:27 Correct patient and procedure confirmed by team. 10:12:28 ECG and BP/O2 sat monitors applied to patient. 10:12:35 Pre-procedure instructions explained to patient. 10:12:41 H&P Date Dictated: 09/07/2017 Within 30 days and on chart.. 10:12:44 Pre-op teaching completed and patient verbalized understanding. 10:21:07 Vital chart was started 10:22:23 Oxygen 2 l/min etCO2 Nasal cannula was administered by Gwyn Meraz RN; Per physician; 10:22:33 Heparin Flush Bag (1000units/500ml NS) 2 bags added to field was administered by Gwyn Meraz RN; used for procedure; 10:22:41 0.9% NaCl 100 ml/hr I.V. was administered by Gwyn Meraz RN; Per physician; 10:26:38 Plavix 75 mg P.O. was administered by Gwyn Meraz RN; for anticoagulation; 10:28:43 Baseline sample Acquired. 10:30:00 Rhythm: sinus rhythm 10:30:11 Full Disclosure recording started 10:30:14 Family in patients room. 10:30:15 Patient NPO since Midnight. 10:30:25 Patient allergic to Other allergyKeflex 10:30:35 Is the patient allergic to Iodine/contrast media? No. 10:30:36 Is patient on blood thinner?Yes 10:30:38 ACC The patient was administered the following blood thiners within the last 24 hours: ACCPlavix 10:30:41 Patient diabetic? Yes. 10:30:42 If diabetic: On Metformin? Yes 10:30:45 If on Metformin: Last Dose? 09/05/2017 10:30:48 Previous problem with sedation/anesthesia? No ? 10:30:49 Snore? No 10:30:50 Sleep apnea? No 10:30:51 Deviated septum? No 10:30:52 Opens mouth fully? Yes 10:30:52 Sticks out tongue? Yes 10:30:54 Airway obstruction? No ? 10:30:55 Dentures? No ? 10:30:58 Pre procedure: right dorsailis pedis pulse 2+ Normal; easily identifiable; not easily obliterated 10:31:01 IV patent on arrival in left hand with 0.9% NaCl at [facility]. 10:31:03 Lab results completed and on chart. 10:31:06 Right groin area was prepped with chlora-prep and draped in sterile fashion 10:31:06 Alarms reviewed by R. N. 10:31:07 Sharps counted by scrub and verified by R.N. 10:31:08 Use device set Femoral Dx 10:31:09 ACIST Syringe (18061) opened to sterile field. 10:31:10 Bag Decanter (2002S) opened to sterile field. 10:31:10 Medline Cath Pack ([id number]) opened to sterile field. 10:31:12 ACIST Hand Control (09859) opened to sterile field. 10:31:12 ACIST Manifold (85435) opened to sterile field. 10:31:17 Tegaderm 4 x 4 (1626W) opened to sterile field. 10:31:18 PERCUTANEOUS ENTRY 19GA needle opened to sterile field. 10:31:20 DIAGNOSTIC WIRE .035 260cm J wire (230912) opened to sterile field. 10:31:21 DIAGNOSTIC Multipack 5Fr catheter set ([id number]) opened to sterile field. 10:31:24 SHEATH Prelude 5Fr 0.035 (CMN-0P-36-035) opened to sterile field. 10:31:31 Physician arrived 10:31:31 --------ALL STOP TIME OUT------ 10:31:32 Final Timeout: patient, procedure, and site verified with staff and physician. All members of the team are in agreement. 10:31:33 Right groin site verified by team. 10:31:35 Physical assessment completed. ASA score P 2 - A patient with mild systemic disease as per Jacobo Kirby MD. 10:31:37 Sedation plan: IV Moderate Sedation Medication:Versed, Fentanyl 10:31:43 Fentanyl 100 mcg I.V. was administered by Gwyn Meraz RN; for sedation; 10:31:51 Versed 2 mg I.V. was administered by Gwyn Meraz RN; for sedation; 10:33:57 Fentanyl 100 mcg I.V. was administered by Gwyn Meraz RN; for sedation; 10:33:59 Versed 2 mg I.V. was administered by Gwyn Meraz RN; for sedation; 10:34:17 Zero performed for pressure channel P1 10:36:18 Procedure started. 10:36:21 Local anesthetic to right femoral artery with Lidocaine 2% by Jacobo Kirby MD.INITIAL ACCESS ONLY 10:37:43 Fentanyl 100 mcg I.V. was administered by Gwyn Meraz RN; for sedation; 10:37:46 Versed 2 mg I.V. was administered by Gwyn Meraz RN; for sedation; 10:38:16 AMPLATZ Super Stiff 75cm wire ([id number]) opened to sterile field. 10:38:38 amplatz wire advance for sheath insertion. 10:39:00 SHEATH Prelude 5Fr 0.035 (ZAJ-9Q-03-035) opened to sterile field. 10:39:05 A 5 Fr sheath was inserted into the Right Femoral artery 10:40:08 A MULTIPACK JL 4.0 5Fr catheter was advanced over the wire and used for Procedure. 10:40:34 LCA angiography performed. 10:40:41 Fentanyl 100 mcg I.V. was administered by Gwyn Meraz RN; for sedation; 10:40:44 Versed 2 mg I.V. was administered by Gwyn Meraz RN; for sedation; 10:42:10 Catheter exchanged over wire. 10:42:16 A MULTIPACK 3DRC 5Fr catheter was advanced over the wire and used for Procedure. 10:42:43 RCA angiography performed. 10:43:44 SVG to Circ angiography performed. 10:45:04 Catheter exchanged over wire. 10:45:24 A DIAGNOSTIC JB3 4Fr catheter (434275) was advanced over the wire and used for Procedure. 10:46:49 GARCIA to LAD angiography performed. 10:47:03 Catheter exchanged over wire. 10:47:10 A MULTIPACK Pigtail 5 Fr catheter was advanced over the wire and used for Procedure. 10:48:30 LV gram done using NGUYEN 10:48:33 Injector settings: Ml/sec: 10, Volume: 20, 10:48:41 EF : 50 % 10:48:57 Catheter removed. 10:50:31 EXOSEAL 5Fr (EX500) opened to sterile field. 10:50:53 Sheath removed intact; hemostasis achieved with Manual Compression to the Right Femoral artery. 10:50:54 Procedure ended.(Physican Out) 10:54:05 Fluoroscopy time 03.60 minutes. 10:54:08 Flurop Dose total: 940 10:54:08 Fluoroscopy dose: 940 mGy 10:54:13 Contrast amount:Isovue 300 93ml. 10:54:14 Sharps counted by scrub and verified by R.N. 10:54:15 Insertion/operative site no bleeding no hematoma. 10:55:40 Post-op/insertion site Right Femoral artery dressed using a 4 x 4 and Tegaderm. 10:55:44 Post right femoral artery:stable, soft, clean and dry 10:55:50 Post Procedure Pulses reassessed and unchanged 10:55:53 Post-procedure physical assessment completed. ASA score P 2 - A patient with mild systemic disease as per Jacobo Kirby MD. 10:55:55 Post procedure rhythm: unchanged. 10:55:57 Estimated blood loss: 5 ml 10:55:59 Post procedure instruction explained to patient.Patient verbalizes understanding. 10:55:59 Patient needs reinforcement of post procedure teaching. 10:56:19 Procedure type changed to Cath procedure, Diagnostic procedure, LHC, LHC w/Coronaries w/Grafts, Sedation Charges, Moderate Sedation up to 15 minutes 10:56:45 Procedure and supply charges have been captured, reviewed, submitted and are correct. 10:56:48 Procedure Complication : No complications 10:56:50 Vital chart was stopped 10:56:51 See physician's report for complete and final results. 10:56:52 Report given to PCU. 10:56:54 Patient transfered to PCU with Stretcher. 10:56:56 Procedure ended. 10:56:56 Full Disclosure recording stopped 10:57:06 End room use (Document Last) Device Usage Item Name Manufacture Quantity Catalog Number Hospital Part Current M inimal Lot# / Charge Number Stock Stock Serial# Code ACIST Syringe Acist 1 32816 716274 477718 948691 2 0 () [employer] Bag Decanter Microtek 1 736579 01520 698832 5 (2002S) Medical Inc. Medline Cath Cardinal 1 [id number] 801518 68112 208167 5 Pack Health ([id number]) ACIST Hand Acist 1 17463 748537 705054 451170 5 Control (39317) Medical Systems Inc ACIST Manifold Acist 1 34510 219186 922219 143537 5 (50096) Medical Systems Inc Tegaderm 4 x 4 3M 1 1626W 812042 544919 263847 5 (1626W) PERCUTANEOUS Cook Medical 1 M30263 658411 746606 5 ENTRY 19GA needle DIAGNOSTIC WIRE St Ronal 1 265330 381061 550978 489721 3 0 .035 260cm J wire (750257) DIAGNOSTIC Cardinal 1 JC4643 792405 07760 947978 3 0 Multipack 5Fr Health catheter set (RA9207) SHEATH Prelude Merit 2 VII-8L-47-035 678253 054954 906545 5 5Fr 0.035 Medical (HHO-7I-62-035) AMPLATZ Super [place] 1 [id number] 895983 703963 617794 5 Stiff 75cm wire Scientific ([id number]) MULTIPACK JL Cardinal 1 218807 5 4.0 5Fr Health catheter MULTIPACK 3DRC Cardinal 1 773148 5 5Fr catheter Health DIAGNOSTIC JB3 Cardinal 1 532-438 698191 686848 432846 5 4Fr catheter Health (651188) MULTIPACK Cardinal 1 370627 5 Pigtail 5 Fr Health catheter EXOSEAL 5Fr Cardinal 1 EX500 956140 007252 066738 1 0 (EX500) Health Signature Audit [place] Stage Time Signature Unsigned Intra-Procedure 09/07/2017 Bertrand Gamble 10:57:33 AM RT(R) Signatures Monitor : Bertrand Gamble RT Signature : Date : Time : [facility] [address] [place] [address]
[~2017-09-06 16:15] MED LIST changes: +COZAAR25 MG PO
[2017-09-06 16:41] LABS: BASOPHILS 0.2 % (0-2); EOSINOPHILS 1.4 % (0-7); HEMATOCRIT 30.3 % (42.0-54.0); HEMOGLOBIN 9.2 g/dL (13.5-17.5); IMMATURE GRANULOCYTES 0.5 % (0-5); LYMPHOCYTES 30.5 % (15-50); MCH 23.4 pg (26.0-34.0); MCHC 30.4 g/dL (31.0-37.0); MCV 77.1 fL (80.0-100.0); MEAN PLATELET VOLUME 10.4 fL (7.4-10.4); NEUTROPHILS 57.4 % (40-80); PLATELET COUNT 156 10x3/uL (130-400); RBC 3.93 10x6/uL (4.20-6.10); RDW 16.3 % (11.5-14.5); WBC 4.4 10x3/uL (4.8-10.8)
[2017-09-06 17:02] LABS: ALBUMIN 3.5 g/dL (3.4-5.0); ALKALINE PHOSPHATASE 82 U/L (46-116); ALT (SGPT) 23 U/L (10-68); BILIRUBIN - TOTAL 0.38 mg/dL (0.2-1.3); CALC OSMOLALITY 280 mosm/kg (275-300); CALCIUM 8.5 mg/dL (8.5-10.1); CHLORIDE - SERUM 103 mmol/L (98-107); CREATININE - SERUM 1.1 mg/dL (0.6-1.3); GLUCOSE 142 mg/dL (74-106); SODIUM 140 mmol/L (136-145); UREA NITROGEN 12 mg/dL (7-18); eGFR NON AFRICAN AMERICAN 76 mL/min (90-120)
[2017-09-06 17:24] LABS: CHOL - HDL RATIO 4.5 ratio (2.3-4.9); CHOLESTEROL, TOTAL 159 mg/dL (0-200); CKMB 0.8 U/L (0.0-3.6); CREATINE KINASE 81 UL (21-232); HDL CHOLESTEROL 35 mg/dL (32-96); LDL CHOLESTEROL 97 mg/dL (0-100); LDL-HDL RATIO 2.8 ratio (1.5-3.5); MAGNESIUM - SERUM 1.4 mg/dL (1.8-2.4); TRIGLYCERIDE 139 mg/dL (30-200); TROPONIN-I < 0.017 ng/mL (0.000-0.060)
[2017-09-06 22:15] VITALS: BP 163/81
[2017-09-06 22:17] VITALS: BP 163/81; Ht 177.8 cm; Wt 130.8 kg
[2017-09-06] MEDS ORDERED: COREG 3.1253.125 MG (22:50)
[2017-09-06] MEDS ORDERED: ZOLOFT100 MG PO (22:51)
[2017-09-06 23:29] LABS: CREATINE KINASE 68 UL (21-232)
[2017-09-06 23:30] LABS: TROPONIN-I < 0.017 ng/mL (0.000-0.060)
[2017-09-07] VITALS: BP 126/71; BP 193/84
[2017-09-07 04:00] VITALS: BP 161/79
[2017-09-07 08:40] LABS: CKMB 0.2 U/L (0.0-3.6); CREATINE KINASE 66 UL (21-232)
[2017-09-07 08:41] LABS: TROPONIN-I < 0.017 ng/mL (0.000-0.060)
[2017-09-07 08:54] VITALS: BP 180/82
[2017-09-07 09:34] LABS: BASOPHILS 0.2 % (0-2); EOSINOPHILS 1.7 % (0-7); HEMATOCRIT 31.9 % (42.0-54.0); HEMOGLOBIN 9.6 g/dL (13.5-17.5); IMMATURE GRANULOCYTES 0.2 % (0-5); LYMPHOCYTES 30.8 % (15-50); MCH 23.2 pg (26.0-34.0); MCHC 30.1 g/dL (31.0-37.0); MCV 77.2 fL (80.0-100.0); MEAN PLATELET VOLUME 10.8 fL (7.4-10.4); MONOCYTES 10.3 % (2-11); NEUTROPHILS 56.8 % (40-80); PLATELET COUNT 157 10x3/uL (130-400); RBC 4.13 10x6/uL (4.20-6.10); RDW 16.6 % (11.5-14.5); WBC 4.1 10x3/uL (4.8-10.8)
[2017-09-07 09:37] LABS: CALC OSMOLALITY 280 mosm/kg (275-300); CALCIUM 8.5 mg/dL (8.5-10.1); CARBON DIOXIDE 29.2 mmol/L (21.0-32.0); CHLORIDE - SERUM 102 mmol/L (98-107); CREATININE - SERUM 1.1 mg/dL (0.6-1.3); GLUCOSE 155 mg/dL (74-106); POTASSIUM - SERUM 3.8 mmol/L (3.5-5.1); SODIUM 140 mmol/L (136-145); UREA NITROGEN 11 mg/dL (7-18); eGFR NON AFRICAN AMERICAN 76 mL/min (90-120)
[2017-09-07 12:33] VITALS: BP 149/82
[2017-09-07 16:34] VITALS: BP 147/77
== END 2017-09-07 17:45 | disposition home or self-care (01) ==
LOC: D.ER 16:15 → D.EDHOLD 18:32 → OBSVTIME 18:33 → D.M2 19:25
PROVIDERS: Emergency Medicine; Internal Medicine Interventional Cardiology
DX: I25.110 Atherosclerotic heart disease of native coronary artery with unstable angina pectoris (principal); Z95.5 Presence of coronary angioplasty implant and graft; Z95.1 Presence of aortocoronary bypass graft; E78.5 Hyperlipidemia, unspecified; I10 Essential (primary) hypertension; I42.9 Cardiomyopathy, unspecified; M19.90 Unspecified osteoarthritis, unspecified site; E11.65 Type 2 diabetes mellitus with hyperglycemia; K21.9 Gastro-esophageal reflux disease without esophagitis; Z86.73 Personal history of transient ischemic attack (TIA), and cerebral infarction without residual deficits

== ENCOUNTER 2018-02-09 03:43 | Observation (INO) | payer MEDICARE ==
[~2018-02-09] VITALS: Ht 177.8 cm; Wt 124.9 kg
--- NOTE | ~2018-02-09 | CN ---
PATIENT NAME:SERINA SAENZ MEDICAL RECORD: [id number] : 68 LOCATION:D. D.2123 ADMIT DATE: 02/09/18 ACCOUNT: [id number] CONSULTING PHYSICIAN: ARTURO GRANADOS MD REFERRING PHYSICIAN: GRECIA CORCORAN DO DATE OF CONSULTATION: 02/09/2018 CARDIOLOGY CONSULT DIAGNOSES: 1. Syncope. 2. Angina. 3. Coronary artery disease. 4. Previous coronary bypass graft surgery. 5. Previous multivessel PTCA stent. 6. Hypertension. 7. Hyperlipidemia. HISTORY OF PRESENT ILLNESS: This is a gentleman well known to us with a past history of coronary artery disease, multivessel stenting and bypass surgery who has been having some angina, but really nothing out of the ordinary and no change in his anginal pattern. Last cardiac catheterization was in August that showed no significant new disease, no intervention was undertaken. His last intervention was January of last year. He got up out of bed in the middle of the night to go to the bathroom and had an episode of syncope. He is not having significant chest pain prior to that. He felt no palpitations. He has been on telemetry. He has had no significant dysrhythmias. PHYSICAL EXAMINATION: GENERAL APPEARANCE: Well-nourished, well-developed, appears stated age. Level of distress, comfortable. PSYCHIATRIC: Mental status, alert, normal affect. Orientation, oriented to time, place and person. EYES: Lids and conjunctiva, noninjected. No discharge, no pallor. ENT: Lips, teeth, gums, normal dentition. Oropharynx, no cyanosis, no pallor. NECK: Carotid arteries, bilateral normal upstroke, no bruits, no thrills. JUGULAR VEINS: No jugular venous pressure or distention. CERVICAL LYMPH NODES: Nontender, nonenlarged. THYROID: Not enlarged. Nontender. No nodules. LUNGS: Respiratory effort, unlabored. CHEST: Normal curvature. No thoracic deformity. No chest wall tenderness. Percussion, resonant. Auscultation, clear. No wheezes, no rales, no rhonchi. CARDIOVASCULAR: Precordial exam, nondisplaced. No heaves or pericardial thrills. Rate and rhythm, regular. Heart sounds, normal S1, normal S2. No S3, no gallop, no rub. Systolic murmur, not heard. Diastolic murmur, not heard. EXTREMITIES: No cyanosis, no edema. Peripheral pulses, full and equal in all extremities, except as noted. No bruits appreciated. ABDOMEN: Soft, nondistended. Normal aorta. No bruit. Nontender. No masses. Liver, nontender, no hepatomegaly. Spleen, nontender, no splenomegaly. MUSCULOSKELETAL: No joint tenderness. No joint swelling. No erythema. NEUROLOGICAL: Normal gait, normal strength, normal tone. SKIN: Warm and dry. REVIEW OF SYSTEMS: The patient reports easy bruising but reports no swollen glands. The patient reports no fever, no night sweats, no significant weight CONSULT REPORT [id number] SERINA SAENZ gain, no significant weight loss. No significant exercise tolerance. The patient reports no dry eyes, no irritation, no vision change. Patient reports no difficulty hearing and no ear pain. Patient reports no frequent nose bleeds or nose and sinus problems. Patient reports on arm pain on exertion. No shortness of breath while lying down. No history of heart murmur. Patient reports no cough, no wheezing or coughing up blood. Patient reports no abdominal pain, no vomiting. Normal appetite. No diarrhea and not vomiting blood. No nausea and no constipation. Patient reports no incontinence. No difficulty urinating. No hematuria. No increased frequency. Patient reports no muscle aches. No weakness, no arthralgias, no back pain. No swelling of the extremities. Patient reports no abnormal mole, no jaundice, no rashes. Reports no loss of consciousness. No weakness and no numbness. No seizures, dizziness, or headaches. The patient reports no depression, no sleep disturbance, feeling safe in a relationship and no alcohol abuse. Patient reports on fatigue. Reports no runny nose or sinus pressure. No itching, no hives, and no frequent sneezing. OVERALL IMPRESSION: 1. Syncope, unknown etiology. At this time, continue telemetry today. If he has no dysrhythmias, would discontinue that tomorrow. 2. Ischemic heart disease. He has had really no change in his anginal picture. No EKG changes. Troponin is normal. No other real workup at this time for the ischemic heart disease. TRANSINT:[id number] Voice Confirmation ID: [id number] DOCUMENT ID: [id number] ARTURO GRANADOS MD at 1823 CC: [id number] DICTATION DATE: 02/09/18 1133 EDGER TECHNICIAN: 02/09/18 1150 DIS IN 02/10/18 [facility] [address] [place] [id number]
[~2018-02-09 03:43] MED LIST changes: +COREG 3.1253.125 MG; +ZOLOFT100 MG PO
[2018-02-09] MEDS ORDERED: KLOR-CON M2020 MEQ PO (03:48)
[2018-02-09 04:13] LABS: BASOPHILS 0.3 % (0-2); EOSINOPHILS 2.6 % (0-7); HEMATOCRIT 40.1 % (42.0-54.0); HEMOGLOBIN 13.2 g/dL (13.5-17.5); IMMATURE GRANULOCYTES 0.2 % (0-5); LYMPHOCYTES 26.3 % (15-50); MCH 27.2 pg (26.0-34.0); MCHC 32.9 g/dL (31.0-37.0); MCV 82.5 fL (80.0-100.0); MEAN PLATELET VOLUME 10.4 fL (7.4-10.4); MONOCYTES 10.5 % (2-11); NEUTROPHILS 60.1 % (40-80); PLATELET COUNT 163 10x3/uL (130-400); RBC 4.86 10x6/uL (4.20-6.10); RDW 15.1 % (11.5-14.5); WBC 5.8 10x3/uL (4.8-10.8)
[2018-02-09 04:27] LABS: ALBUMIN 3.8 g/dL (3.4-5.0); ALKALINE PHOSPHATASE 85 U/L (46-116); ALT (SGPT) 37 U/L (10-68); CALC OSMOLALITY 279 mosm/kg (275-300); CALCIUM 9.1 mg/dL (8.5-10.1); CARBON DIOXIDE 28.2 mmol/L (21.0-32.0); CHLORIDE - SERUM 103 mmol/L (98-107); CREATININE - SERUM 1.3 mg/dL (0.6-1.3); POTASSIUM - SERUM 4.5 mmol/L (3.5-5.1); PROTEIN - SERUM 7.7 g/dL (6.4-8.2); SODIUM 137 mmol/L (136-145); UREA NITROGEN 11 mg/dL (7-18); eGFR NON AFRICAN AMERICAN 62 mL/min (90-120)
[2018-02-09 04:28] LABS: GLUCOSE 221 mg/dL (74-106)
[2018-02-09 04:34] LABS: LIPASE 84 U/L (73-393); MAGNESIUM - SERUM 1.6 mg/dL (1.8-2.4); PRO BNP 338 pg/mL (0-125)
[2018-02-09 04:36] LABS: TROPONIN-I < 0.017 ng/mL (0.000-0.060)
[2018-02-09 05:00] VITALS: BP 137/83
[2018-02-09 08:37] VITALS: BP 171/90
[2018-02-09 10:05] VITALS: BP 167/91; Ht 177.8 cm; Wt 124.9 kg
[2018-02-09 15:00] LABS: CKMB 1.5 U/L (0.0-3.6); CREATINE KINASE 191 UL (21-232)
[2018-02-09 15:01] LABS: TROPONIN-I < 0.017 ng/mL (0.000-0.060)
[2018-02-09 20:18] LABS: CKMB 1.1 U/L (0.0-3.6); CREATINE KINASE 203 UL (21-232)
[2018-02-09 20:20] LABS: TROPONIN-I < 0.017 ng/mL (0.000-0.060)
[2018-02-09 21:04] VITALS: BP 146/84
[2018-02-10] VITALS (7 sets, daily range): BP systolic 135–170; BP diastolic 75–94
[2018-02-10 01:49] LABS: BASOPHILS 0.2 % (0-2); EOSINOPHILS 1.7 % (0-7); HEMATOCRIT 34.8 % (42.0-54.0); HEMOGLOBIN 11.5 g/dL (13.5-17.5); IMMATURE GRANULOCYTES 0.2 % (0-5); MCH 26.9 pg (26.0-34.0); MCV 81.5 fL (80.0-100.0); MEAN PLATELET VOLUME 9.9 fL (7.4-10.4); MONOCYTES 9.3 % (2-11); NEUTROPHILS 58.6 % (40-80); PLATELET COUNT 148 10x3/uL (130-400); RBC 4.27 10x6/uL (4.20-6.10); RDW 14.9 % (11.5-14.5)
[2018-02-10 02:16] LABS: ALBUMIN 3.3 g/dL (3.4-5.0); ALKALINE PHOSPHATASE 74 U/L (46-116); ALT (SGPT) 32 U/L (10-68); BILIRUBIN - TOTAL 0.33 mg/dL (0.2-1.3); CALC OSMOLALITY 283 mosm/kg (275-300); CALCIUM 8.5 mg/dL (8.5-10.1); CARBON DIOXIDE 28.3 mmol/L (21.0-32.0); CHLORIDE - SERUM 104 mmol/L (98-107); CKMB 0.9 U/L (0.0-3.6); CREATINE KINASE 188 UL (21-232); CREATININE - SERUM 1.2 mg/dL (0.6-1.3); GLUCOSE 192 mg/dL (74-106); MAGNESIUM - SERUM 1.5 mg/dL (1.8-2.4); POTASSIUM - SERUM 4.3 mmol/L (3.5-5.1); PROTEIN - SERUM 6.7 g/dL (6.4-8.2); SODIUM 139 mmol/L (136-145); TROPONIN-I < 0.017 ng/mL (0.000-0.060); UREA NITROGEN 14 mg/dL (7-18); eGFR NON AFRICAN AMERICAN 69 mL/min (90-120)
== END 2018-02-10 17:37 | disposition home or self-care (01) ==
LOC: D.ER 03:43 → D.M2 04:52 → OBSVTIME 04:52 → D.M2 04:52 → D.ER 05:23 → D.M2 05:23
PROVIDERS: Family Medicine
DX: R55 Syncope and collapse (principal); I25.119 Atherosclerotic heart disease of native coronary artery with unspecified angina pectoris; Z95.1 Presence of aortocoronary bypass graft; Z95.5 Presence of coronary angioplasty implant and graft; S20.219A Contusion of unspecified front wall of thorax, initial encounter; W19.XXXA Unspecified fall, initial encounter; E11.65 Type 2 diabetes mellitus with hyperglycemia; E11.40 Type 2 diabetes mellitus with diabetic neuropathy, unspecified; Z86.73 Personal history of transient ischemic attack (TIA), and cerebral infarction without residual deficits; F32.9 Major depressive disorder, single episode, unspecified; F41.9 Anxiety disorder, unspecified; F17.213 Nicotine dependence, cigarettes, with withdrawal; K21.9 Gastro-esophageal reflux disease without esophagitis

== ENCOUNTER 2018-04-11 16:53 | Inpatient (IN) | payer MEDICARE ==
[~2018-04-11] VITALS: Ht 177.8 cm; Wt 121.1 kg
--- NOTE | ~2018-04-11 | HEMODYNAMI ---
PATIENT:SERINA SAENZ MEDICAL RECORD: [id number] : 68 LOCATION:[address] ADMISSION DATE: 04/11/18 Generatedon:04/12/201810:41 Patient name: SERINA SAENZ Patient #: [id number] : 1970 Date of study: 04/12/2018 Page: Of Hemodynamic Procedure Report Patient Data Patient Demographics Procedure consent was obtained First Name: SERINA Gender: Male Last Name: LETTY : 1970 Middle Initial: RABIA Age: 47 year(s) Patient #: [id number] Race: SSN: [id number] Additional ID: [id number] Contact details [address]: [address] [place] [address] State: [place] City: [place] Zip code: [address] Past Medical History Allergies Allergen Reaction Date Comments Reported Other allergy 06/10/2014 keflex Other allergy 04/19/2016 Keflex Other allergy 04/26/2016 keflex Other allergy 05/11/2016 Cephalexin, Monohydrate Other allergy 11/03/2016 cephalexin Monohydrate Other allergy 01/22/2017 keflex Other allergy 09/07/2017 Keflex Admission Admission Data Admission Date: 04/11/2018 Admission Time: 18:37 Room #: 2121 Procedure Procedure Types Cath Procedure Diagnostic Procedure LHC LHC w/Coronaries w/Grafts Procedure Description Procedure Date Procedure Date: 04/12/2018 Procedure Start Time: 10:17 Procedure End Time: 10:39 Procedure Staff Name Function Peter Velarde MD Performing Physician Buffy Mcgraw RT Monitor Jamilah Jansen RT Scrub Marilyn Heck RN Nurse Procedure Data Cath Procedure Fluoroscopy Diagnostic fluoroscopy Total fluoroscopy Time: 5.6 time: 5.6 min min Diagnostic fluoroscopy Total fluoroscopy dose: 806 dose: 806 mGy mGy Contrast Material Contrast Material Type Amount (ml) Isovue 300 61 Entry Location Entry Primary Successful Side Size Upsize Upsize Entry Closure Succes sful Closure Location (Fr) 1 (Fr) 2 (Fr) Remarks Device Remarks Femoral Right 5 Fr Exoseal artery Estimated blood loss: 10 ml Diagnostic catheters Device Type Used For End Catheter Placement MULTIPACK JL 4.0 5Fr Procedure catheter MULTIPACK 3DRC 5Fr Procedure catheter MULTIPACK Pigtail 5 Fr Ventriculography catheter Procedure Complications No complications Procedure Medications Medication Administration Route Dosage 0.9% NaCl I.V. 100 ml/hr Oxygen etCO2 Nasal cannula 2 l/min Lidocaine 2% added to field 20 Heparin Flush Bag added to field 2 bags (1000units/500ml NS) Versed I.V. 2 mg Fentanyl I.V. 25 mcg Versed I.V. 1 mg Fentanyl I.V. 25 mcg Versed I.V. 1 mg Fentanyl I.V. 25 mcg Fentanyl I.V. 25 mcg Hemodynamics Rest Heart Rate: 57 (bpm) Pressure Samples Time Site Value (mmHg) Purpose Heart Use Rate(bpm) 10:31 AO 137/76(101) Snapshot 68 10:32 AO 138/75(101) Snapshot 68 10:34 LV 171/-4,13 EDP 72 Gradients Valve Time Site Site Mean SEP/DFP Peak To Heart Use 1 2 (mmHg) (sec/min) Peak Rate (mmHg) (bpm) Aortic 10:34 LV AO 68 Snapshots Pre Cath Intra NCS Post Cath Vital Signs Time Heart Resp SPO2 etCO2 NIBP (mmHg) Rhythm Pain Sedation Rate (ipm) (%) (mmHg) Status Level (bpm) 10:06:51 57 13 100 35 128/115(123) NSR 0 (11) 10(A) , No pain 10:12:06 68 24 98 27.5 160/84(113) NSR 0 (11) 10(A) , No pain 10:17:28 69 21 99 33.5 146/83(111) NSR 0 (11) 10(A) , No pain 10:21:46 71 13 98 29.8 121/89(91) NSR 0 (11) 10(A) , No pain 10:26:53 65 20 98 32.7 155/90(118) NSR 0 (11) 10(A) , No pain 10:32:19 67 20 97 35 145/79(126) NSR 0 (11) 10(A) , No pain 10:36:45 70 22 98 35.7 159/81(117) NSR 0 (11) 10(A) , No pain Medications Time Medication Route Dose Verified Delivered Reason Notes Eff ectiveness by by 9:50:34 0.9% NaCl I.V. 100 Peter Marilyn used for ml/hr Prachi Heck procedure RN 9:50:41 Oxygen etCO2 2 Peter Marilyn used for Nasal l/min Prachi Heck procedure cannula RN 9:50:47 Lidocaine 2% added 20ml Peter Peter for local to vial Prachi Velarde MD anesthetic field 9:50:52 Heparin Flush added 2 Peter Peter used for Bag to bags Prachi Velarde MD procedure (1000units/500ml field MG NS) 10:09:12 Versed I.V. 2 mg Peter Marilyn for Prachi Heck sedation RN 10:09:17 Fentanyl I.V. 25 Peter Marilyn for mcg Prachi Heck sedation RN 10:16:33 Versed I.V. 1 mg Peter Marilyn for Prachi Heck sedation RN 10:16:39 Fentanyl I.V. 25 Peter Marilyn for mcg Prachi Heck sedation RN 10:22:52 Versed I.V. 1 mg Peter Marilyn for Pracih Heck sedation RN 10:22:56 Fentanyl I.V. 25 Peter Marilyn for mcg Prachi Heck sedation RN 10:27:28 Fentanyl I.V. 25 Peter Marilyn for mcg Prachi Heck sedation bar pointer Log Time Note 9:49:41 Informed consent obtained and on chart 9:50:18 Marilyn Heck RN sent for patient. Start room use. 9:50:19 Time tracking: Regular hours (M-F 7:00 - 5:00) 9:50:30 Plan of Care:Hemodynamics will remain stable., Cardiac rhythm will remain stable., Comfort level will be maintained., Respiratory function will remain adequate., Patient/ family verbilizes understanding of procedure., Procedure tolerated without complication., Recovers from procedure without complications.. 9:50:34 0.9% NaCl 100 ml/hr I.V. was administered by Marilyn Heck RN; used for procedure; 9:50:41 Oxygen 2 l/min etCO2 Nasal cannula was administered by Marilyn Heck RN; used for procedure; 9:50:47 Lidocaine 2% 20ml vial added to field was administered by Peter Velarde MD; for local anesthetic; 9:50:52 Heparin Flush Bag (1000units/500ml NS) 2 bags added to field was administered by Peter Velarde MD; used for procedure; 10:05:25 Vital chart was started 10:06:10 Patient received from Med II to CCL 1 Alert and oriented. Tansferred to table in Supine position. 10:06:11 Warm blankets applied, and yolande hugger turned on for patient comfort. 10:06:11 Correct patient and procedure confirmed by team. 10:06:12 ECG and BP/O2 sat monitors applied to patient. 10:06:14 Baseline sample Acquired. 10:06:20 Rhythm: sinus rhythm 10:06:22 Full Disclosure recording started 10:06:49 H&P Date Dictated: 04/11/2018 Within 30 days and on chart.. 10:06:51 Pre-procedure instructions explained to patient. 10:06:54 Family in patients room. 10:06:57 Patient NPO since Midnight. 10:07:15 Is the patient allergic to Iodine/contrast media? No. 10:07:17 Is patient on blood thinner?Yes 10:07:22 ACC The patient was administered the following blood thiners within the last 24 hours: ACCPlavix, ACCBrilinta 10:07:25 Patient diabetic? Yes. 10:07:35 If diabetic: On Metformin? Yes 10:07:39 If on Metformin: Last Dose? 04/10/2018 10:07:43 Previous problem with sedation/anesthesia? No ? 10:07:47 Snore? Unknown 10:07:50 Sleep apnea? No 10:07:57 Dentures? No ? 10:08:04 Patient pain scale 0/10 ?. 10:08:12 IV patent on arrival in left forearm with 0.9% NaCl at [facility]. 10:08:16 Lab results completed and on chart. 10:08:20 Right groin area was prepped with chlora-prep and draped in sterile fashion 10:08:22 Alarms reviewed by R. N. 10:08:22 Sharps counted by scrub and verified by R.N. 10:08:23 Physician paged 10:08:25 Physician arrived 10:08: --------ALL STOP TIME OUT------ 10:08:27 Final Timeout: patient, procedure, and site verified with staff and physician. All members of the team are in agreement. 10:08:29 Right groin site verified by team. 10:08:32 Physical assessment completed. ASA score P 2 - A patient with mild systemic disease as per Peter Velarde MD. 10:08:38 Sedation plan: IV Moderate Sedation Medication:Versed, Fentanyl 10:09:12 Versed 2 mg I.V. was administered by Marilyn Heck RN; for sedation; 10:09:17 Fentanyl 25 mcg I.V. was administered by Marilyn Heck RN; for sedation; 10:13:29 Use device set Femoral Dx 10:13:31 ACIST Syringe (76570) opened to sterile field. 10:13:32 Bag Decanter (2002S) opened to sterile field. 10:13:33 Medline Cath Pack ([id number]) opened to sterile field. 10:13:34 DIAGNOSTIC WIRE .035 260cm J wire (672671) opened to sterile field. 10:13:35 ACIST Hand Control (79187) opened to sterile field. 10:13:36 ACIST Manifold (14542) opened to sterile field. 10:13:37 DIAGNOSTIC Multipack 5Fr catheter set (WO0839) opened to sterile field. 10:13:38 Tegaderm 4 x 4 (1626W) opened to sterile field. 10:13:43 SHEATH 5FR [place] (BKN757) opened to sterile field. 10:16:21 Procedure started. 10:16:33 Versed 1 mg I.V. was administered by Marilyn Heck RN; for sedation; 10:16:39 Fentanyl 25 mcg I.V. was administered by Marilyn Heck RN; for sedation; 10:17:07 Local anesthetic to right femoral artery with Lidocaine 2% by Peter Velarde MD.INITIAL ACCESS ONLY 10:17:09 Access obtained with 4Fr micropunture. 10:18:55 Zero performed for pressure channel P1 10:21:24 A 5 Fr sheath was inserted into the Right Femoral artery 10:21:38 MICROPUNCTURE 4FR [place] (L08561) opened to sterile field. 10:21:55 A MULTIPACK JL 4.0 5Fr catheter was advanced over the wire and used for Procedure. 10::52 Versed 1 mg I.V. was administered by Marilyn Heck RN; for sedation; 10::56 Fentanyl 25 mcg I.V. was administered by Marilyn Heck RN; for sedation; 10:24:08 Catheter removed. 10:25:52 A MULTIPACK 3DRC 5Fr catheter was advanced over the wire and used for Procedure. 10::56 RCA angiography performed. 10::28 Fentanyl 25 mcg I.V. was administered by Marilyn Heck RN; for sedation; 10:28:00 SVG to Circ angiography performed. 10:31:16 GLIDE WIRE ANGLE 260cm (VR9704) opened to sterile field. 10:31:27 GARCIA to LAD angiography performed. 10:32:28 Catheter removed. 10:32:43 A MULTIPACK Pigtail 5 Fr catheter was advanced over the wire and used for Ventriculography. 10:33:08 LV angiography performed. 10:34:30 LV hemodynamics recorded. 10:35:00 EF : 60 % 10:35:02 Catheter removed. 10:36:32 EXOSEAL 5Fr (EX500) opened to sterile field. 10:36:45 Sheath removed intact; hemostasis achieved with Exoseal to the Right Femoral artery. 10:36:48 Procedure ended.(Physican Out) 10:37:16 Fluoroscopy time 05.60 minutes. 10:37:21 Fluoroscopy dose: 806 mGy 10:37:21 Flurop Dose total: 806 10:37:34 Contrast amount:Isovue 300 61ml. 10:38:26 Insertion/operative site no bleeding no hematoma. 10:38:30 Post-op/insertion site Right Femoral artery dressed using a 4 x 4 and Tegaderm. 10:38:32 Post Procedure Pulses reassessed and unchanged 10:38:35 Post-procedure physical assessment completed. ASA score P 2 - A patient with mild systemic disease as per Peter Velarde MD. 10:38:40 Post procedure rhythm: unchanged. 10:38:43 Estimated blood loss: 10 ml 10:38:45 Post procedure instruction explained to patient.Patient verbalizes understanding. 10:38:58 Procedure and supply charges have been captured, reviewed, submitted and are correct. 10:39:34 Procedure Complication : No complications 10:39:37 Vital chart was stopped 10:39:38 See physician's report for complete and final results. 10:39:40 Report given to Pre/Post Procedure Room. 10:39:45 Patient transfered to [facility] with Bed. 10:39:47 Procedure ended. 10:39:47 Full Disclosure recording stopped 10:39:51 End room use (Document Last) Device Usage Item Name Manufacture Quantity Catalog Hospital Part Current Minimal Lot# / Number Charge Number Stock Stock Serial# Code ACIST Syringe Acist 1 50633 647923 835058 [id number] 20 (99375) Medical Systems Inc Bag Decanter Microtek 1 2001S 299728 01366 435846 5 (2001S) Medical Inc. Medline Cath Medline 1 [id number] 276877 91106 995550 5 Pack ([id number]) DIAGNOSTIC [facility] [place] 1 452805 360672 757351 990983 30 WIRE .035 260cm J wire (072564) ACIST Hand Acist 1 75547 544415 394162 456446 5 Control Medical (65884) Systems Inc ACIST Acist 1 95804 004454 296047 763056 5 Manifold Medical (24588) Systems Inc DIAGNOSTIC Cardinal 1 RZ8589 875290 05152 056226 30 Multipack 5Fr Health catheter set (LR7600) Tegaderm 4 x 3M 1 1626W 065944 885489 803720 5 4 (1626W) SHEATH 5FR Terumo 1 XOG270 242552 656754 263049 40 [place] (LIZ143) MICROPUNCTURE [facility] 1 H41195 212780 973446 733500 5 4FR Cook (C92354) MULTIPACK JL Cardinal 1 508016 5 4.0 5Fr Health catheter MULTIPACK Cardinal 1 050810 5 3DRC 5Fr Health catheter GLIDE WIRE Terumo 1 RO9766 852256 866539 153969 5 ANGLE 260cm (IB9184) MULTIPACK Cardinal 1 980048 5 Pigtail 5 Fr Health catheter EXOSEAL 5Fr Cardinal 1 EX500 272716 672391 950204 10 (EX500) Health Signature Audit [place] Stage Time Signature Unsigned Intra-Procedure 04/12/2018 Buffy Mcgraw 10:41:36 AM RT(R) Signatures Monitor : Buffy Mcgraw Signature : RT Date : Time : [address] [place] [address]
--- NOTE | ~2018-04-11 | MORECARE ---
CASE MANAGEMENT DISCHARGE SUMMARY PATIENT: SERINA SAENZ UNIT: [id number] ADM DATE: 04/12/18 AGE: 47 : 68 SEX: M ROOM/BED: D.2121 AUTHOR: PAOLA SAVAGE PHYSICIAN: REFERRING PHYSICIAN: CHELSEA ECKERT MD DATE OF SERVICE: 04/14/18 Discharge Plan Patient Name: SERINA SAENZ [facility] : 1970 Planned Disposition: Home Anticipated Discharge Date: 04/13/18 Discharge Date: 04/13/2018 Expected LOS: 1 Initial Reviewer: [email or web address] Initial Review Date: 04/14/2018 Generated: 04/14/18 10:00 am Patient Name: SERINA SAENZ Page [id number] at 0900 All edits/amendments must be made on the electronic document DICTATION DATE: 04/14/18899 RAYON WINDER: [email or web address] 04/14/18 09 RPT#: [id number] DC DATE:04/13/18 STATUS: DIS IN [facility] [address] [place] [address] END OF REPORT
--- NOTE | ~2018-04-11 | OP ---
PATIENT NAME: SERINA SAENZ MEDICAL RECORD: [id number] :68 LOCATION:D. D.2121 ADMISSION DATE:04/11/18 SURGEON: JAYLAN SUAREZ MD DATE OF OPERATION: 04/12/2018 PROCEDURES: Left heart catheterization, saphenous vein bypass angiogram, GARCIA angiogram, left ventriculogram. PROCEDURE IN DETAIL: The patient was brought to cardiac catheterization lab in stable condition. Both groins were sterilely prepped and draped. The patient had a 5-Czech sheath placed in the right common femoral artery using a modified Seldinger technique. The patient then had a diagnostic catheter utilized to intubate the left main coronary artery, the right coronary artery, the vein graft to the obtuse marginal branch, and the GARCIA to the LAD, and we then placed a pigtail into the left ventricular cavity for left ventricular angiogram. FINDINGS: 1. Left main has mild plaquing. 2. The LAD is 100% occluded proximally. 3. The circumflex is shown to be 100% occluded past the first obtuse marginal branch that is shown to have a stent in that area. There is continued presence of a small proximal lipping of the circumflex into the stented area. It appeared also in August of earlier this year and there is no change. There is no significant stenosis or hemodynamically restrictive flow through that segment. 4. The RCA is a large dominant vessel with multiple stents, widely patent, 10% to 20% in-stent restenosis. 5. The vein graft to the terminal obtuse marginal branch is widely patent. There are mild degenerative changes. 6. The GARCIA to the LAD is widely patent. 7. The stent of the subclavian vessel shows no pressure gradient across it upon pullback pressure measurements. HEMODYNAMICS: Left ventricular ejection fraction is 60%. The end-diastolic pressure was normal. There is no significant mitral regurgitation. There is no gradient across the aortic valve. IMPRESSION: The patient with severe ramona vessel coronary artery disease. Two bypass grafts are patent including the GARCIA to the LAD. Patent stents in the ramona RCA. Patent stents in the ramona proximal obtuse marginal branch. RECOMMENDATIONS: Continue medical management. The patient has preserved LV systolic function. TRANSINT:[id number] Voice Confirmation ID: [id number] DOCUMENT ID: [id number] JAYLAN SUAREZ MD CC: [id number] DICTATION DATE: 04/12/18 1043 THERAPIST: 04/12/18 1113 ADM IN [facility] [address] [place] [address]
[~2018-04-11 16:53] MED LIST changes: +KLOR-CON M2020 MEQ PO
[2018-04-11 17:33] VITALS: BP 164/75
[2018-04-11 17:43] LABS: BASOPHILS 0.3 % (0-2); HEMOGLOBIN 12.7 g/dL (13.5-17.5); IMMATURE GRANULOCYTES 0.2 % (0-5); LYMPHOCYTES 17.8 % (15-50); MCH 26.3 pg (26.0-34.0); MCHC 32.6 g/dL (31.0-37.0); MCV 80.9 fL (80.0-100.0); MEAN PLATELET VOLUME 10.9 fL (7.4-10.4); MONOCYTES 5.2 % (2-11); NEUTROPHILS 75.5 % (40-80); PLATELET COUNT 172 10x3/uL (130-400); RBC 4.82 10x6/uL (4.20-6.10); RDW 13.6 % (11.5-14.5); WBC 5.9 10x3/uL (4.8-10.8)
[2018-04-11 17:54] LABS: INR 1.04 (0.85-1.17); PROTIME 13.1 SECONDS (11.6-15.0)
[2018-04-11 17:55] LABS: APTT 28.2 SECONDS (22.8-39.4)
[2018-04-11 18:12] LABS: ALBUMIN 3.6 g/dL (3.4-5.0); ALKALINE PHOSPHATASE 69 U/L (46-116); ALT (SGPT) 31 U/L (10-68); CALC OSMOLALITY 280 mosm/kg (275-300); CALCIUM 9.3 mg/dL (8.5-10.1); CARBON DIOXIDE 28.5 mmol/L (21.0-32.0); CHLORIDE - SERUM 100 mmol/L (98-107); CREATININE - SERUM 1.2 mg/dL (0.6-1.3); POTASSIUM - SERUM 4.6 mmol/L (3.5-5.1); PROTEIN - SERUM 7.5 g/dL (6.4-8.2); SODIUM 135 mmol/L (136-145); UREA NITROGEN 17 mg/dL (7-18); eGFR NON AFRICAN AMERICAN 69 mL/min (90-120)
[2018-04-11 18:13] LABS: GLUCOSE 257 mg/dL (74-106)
[2018-04-11 18:26] LABS: CKMB 0.6 U/L (0.0-3.6); CREATINE KINASE 57 UL (21-232); MAGNESIUM - SERUM 1.4 mg/dL (1.8-2.4); TROPONIN-I < 0.017 ng/mL (0.000-0.060)
[2018-04-11 18:37] VITALS: BP 159/92
[2018-04-11 19:25] LABS: CREATINE KINASE 58 UL (21-232)
[2018-04-11 19:27] LABS: TROPONIN-I < 0.017 ng/mL (0.000-0.060)
[2018-04-11 20:00] VITALS: BP 162/72
[2018-04-11 21:29] VITALS: BP 162/72
[2018-04-11 23:48] LABS: CKMB 0.4 U/L (0.0-3.6); CREATINE KINASE 53 UL (21-232)
[2018-04-11 23:50] LABS: TROPONIN-I < 0.017 ng/mL (0.000-0.060)
[2018-04-12] VITALS: BP 168/84
[2018-04-12 04:00] VITALS: BP 160/78
[2018-04-12 04:44] LABS: CKMB 0.4 U/L (0.0-3.6); CREATINE KINASE 46 UL (21-232)
[2018-04-12 04:45] LABS: TROPONIN-I < 0.017 ng/mL (0.000-0.060)
[2018-04-12 06:57] LABS: BASOPHILS 0.1 % (0-2); EOSINOPHILS 1.8 % (0-7); HEMATOCRIT 37.1 % (42.0-54.0); HEMOGLOBIN 11.9 g/dL (13.5-17.5); IMMATURE GRANULOCYTES 0.1 % (0-5); LYMPHOCYTES 30.5 % (15-50); MCH 26.3 pg (26.0-34.0); MCHC 32.1 g/dL (31.0-37.0); MCV 81.9 fL (80.0-100.0); MEAN PLATELET VOLUME 11.2 fL (7.4-10.4); MONOCYTES 10.6 % (2-11); NEUTROPHILS 56.9 % (40-80); PLATELET COUNT 174 10x3/uL (130-400); RBC 4.53 10x6/uL (4.20-6.10); RDW 13.8 % (11.5-14.5); WBC 7.1 10x3/uL (4.8-10.8)
[2018-04-12 07:10] LABS: ALBUMIN 3.4 g/dL (3.4-5.0); ANION GAP 15.9 mmol/L (8-16); BILIRUBIN - TOTAL 0.31 mg/dL (0.2-1.3); CALCIUM 9.2 mg/dL (8.5-10.1); CARBON DIOXIDE 26.4 mmol/L (21.0-32.0); CREATININE - SERUM 1.3 mg/dL (0.6-1.3); POTASSIUM - SERUM 4.3 mmol/L (3.5-5.1)
[2018-04-12 09:08] VITALS: BP 180/96
[2018-04-12 10:16] LABS: CALC OSMOLALITY 277 mosm/kg (275-300); CALCIUM 9.6 mg/dL (8.5-10.1); CARBON DIOXIDE 29.5 mmol/L (21.0-32.0); CHLORIDE - SERUM 100 mmol/L (98-107); CREATININE - SERUM 1.1 mg/dL (0.6-1.3); POTASSIUM - SERUM 4.5 mmol/L (3.5-5.1); SODIUM 136 mmol/L (136-145); UREA NITROGEN 15 mg/dL (7-18); eGFR NON AFRICAN AMERICAN 76 mL/min (90-120)
[2018-04-12 10:19] LABS: GLUCOSE 187 mg/dL (74-106)
[2018-04-12 13:45] VITALS: Ht 177.8 cm; Wt 121.1 kg
[2018-04-12 19:45] VITALS: BP 113/59
[2018-04-12 23:50] VITALS: BP 98/56
[2018-04-13 03:45] VITALS: BP 104/57
[2018-04-13 08:13] VITALS: BP 132/80
[2018-04-13] MEDS ORDERED: PRINIVIL20 MG PO ×2 (11:17→11:21)
[2018-04-13 11:28] VITALS: BP 111/48
== END 2018-04-13 14:15 | disposition home or self-care (01) | DRG 287 ==
LOC: D.ER 16:53 → D.M2 18:37 → OBSVTIME 18:37 → D.EDHOLD 18:37 → D.M2 18:57
PROVIDERS: Emergency Medicine; Internal Medicine Cardiovascular Disease
PROC: B2111ZZ Fluoroscopy of Multiple Coronary Arteries using Low Osmolar Contrast (ICD-10-PCS; 2018-04-12)
PROC: B2151ZZ Fluoroscopy of Left Heart using Low Osmolar Contrast (ICD-10-PCS; 2018-04-12)
PROC: 4A023N7 Measurement of Cardiac Sampling and Pressure, Left Heart, Percutaneous Approach (ICD-10-PCS; 2018-04-12)
PROC: B2131ZZ Fluoroscopy of Multiple Coronary Artery Bypass Grafts using Low Osmolar Contrast (ICD-10-PCS; principal; 2018-04-12 09:50)
DX: I25.119 Atherosclerotic heart disease of native coronary artery with unspecified angina pectoris (principal); F17.213 Nicotine dependence, cigarettes, with withdrawal; Z95.1 Presence of aortocoronary bypass graft; I10 Essential (primary) hypertension; E78.5 Hyperlipidemia, unspecified; E11.65 Type 2 diabetes mellitus with hyperglycemia; K21.9 Gastro-esophageal reflux disease without esophagitis; D64.9 Anemia, unspecified; Z86.73 Personal history of transient ischemic attack (TIA), and cerebral infarction without residual deficits

== ENCOUNTER 2018-08-23 21:16 | Observation (INO) | payer MEDICARE ==
[~2018-08-23] VITALS: Ht 177.8 cm; Wt 125.0 kg
--- NOTE | ~2018-08-23 | HEMODYNAMI ---
PATIENT:SERINA SAENZ MEDICAL RECORD: [id number] : 68 [id number] ADMISSION DATE: 08/23/18 Generatedon:08/24/201811:13 Patient name: SERINA SAENZ Patient #: [id number] : 1970 Date of study: 08/24/2018 Page: Of Hemodynamic Procedure Report Patient Data Patient Demographics Procedure consent was obtained First Name: SERINA Gender: Male Last Name: LETTY : 1970 Middle Initial: RABIA Age: 47 year(s) Patient #: [id number] Race: SSN: [id number] Additional ID: [id number] Contact details [address]: [address] [place] [address] State: [place] City: [place] Zip code: [address] Past Medical History Allergies Allergen Reaction Date Comments Reported Other allergy 06/10/2014 keflex Other allergy 04/19/2016 Keflex Other allergy 04/26/2016 keflex Other allergy 05/11/2016 Cephalexin, Monohydrate Other allergy 11/03/2016 cephalexin Monohydrate Other allergy 01/22/2017 keflex Other allergy 09/07/2017 Keflex Other allergy 08/24/2018 KEFLEX Admission Admission Data Admission Date: 08/23/2018 Admission Time: 23:37 Room #: D.2125 Height (in.): 70 BSA: 2.39 (m2) Height (cm.): 177.8 BMI: 39.54 (kg/m2) Weight (lbs.): 275.58 Weight (kg.): 125 Lab Results Lab Result Date: 08/24/2018 Lab Result Time: 0:00 Biochemistry Name Units Result Min Max BUN mg/dl 16 --(---*)-- 7 18 Creatinine mg/dl 1.1 --(--*-)-- 0.6 1.3 CBC Name Units Result Min Max Hematocrit % 33.9 *-(----)-- 42 54 Hemoglobin g/dl 10.8 *-(----)-- 13.5 17.5 Procedure Procedure Types Cath Procedure Diagnostic Procedure [facility] w/Coronaries w/Grafts Procedure Description Procedure Date Procedure Date: 08/24/2018 Procedure Start Time: 11:00 Procedure End Time: 11:12 Procedure Staff Name Function Jacobo Kirby MD Performing Physician Holly Mcmullen RT Monitor Jyothi Perkins RT Scrub Taj Bob RN Nurse Procedure Data Cath Procedure Fluoroscopy Diagnostic fluoroscopy Total fluoroscopy Time: 2 time: 2 min min Diagnostic fluoroscopy Total fluoroscopy dose: 437 dose: 437 mGy mGy Contrast Material Contrast Material Type Amount (ml) Isovue 300 55 Entry Location Entry Primary Successful Side Size Upsize Upsize Entry Closure Succes sful Closure Location (Fr) 1 (Fr) 2 (Fr) Remarks Device Remarks Femoral Left 5 Fr Exoseal artery Estimated blood loss: 5 ml Diagnostic catheters Device Type Used For End Catheter Placement MULTIPACK JL 4.0 5Fr Left Coronary catheter Angiography MULTIPACK 3DRC 5Fr Right Coronary catheter Angiography MULTIPACK 3DRC 5Fr SVG Angiography catheter MULTIPACK 3DRC 5Fr Internal mammary catheter arteriography MULTIPACK Pigtail 5 Fr LV Angiography catheter Procedure Complications No complications Procedure Medications Medication Administration Route Dosage 0.9% NaCl I.V. 100 ml/hr Oxygen etCO2 Nasal cannula 2 l/min Heparin Flush Bag added to field 2 bags (1000units/500ml NS) Lidocaine 2% added to field 20 Versed I.V. 2 mg Fentanyl I.V. 100 mcg Versed I.V. 2 mg Fentanyl I.V. 100 mcg Versed I.V. 2 mg Solumedrol I.V. 125 mg Hemodynamics Rest BSA: 2.39 (m2) O2 Consumption: Estimated: 290.96 (ml/min) O2 Consumption indexed : Estimated:121.74 (ml/min/m) Heart Rate: 74 (bpm) Pressure Samples Time Site Value (mmHg) Purpose Heart Use Rate(bpm) 11:07 LV 133/5,11 EDP 109 Gradients Valve Time Site Site Mean SEP/DFP Peak To Heart Use 1 2 (mmHg) (sec/min) Peak Rate (mmHg) (bpm) Aortic 11:08 LV AO 78 Snapshots Pre Cath Intra NCS Post Cath Vital Signs Time Heart Resp SPO2 etCO2 NIBP (mmHg) Rhythm Pain Sedation Rate (ipm) (%) (mmHg) Status Level (bpm) 10:54:38 72 19 100 44.9 165/83(141) NSR 0 (11) 10(A) , No pain 10:59:02 74 16 92 39.6 151/89(121) NSR 0 (11) 10(A) , No pain 11:03:26 72 19 99 43.4 151/85(126) NSR 0 (11) 10(A) , No pain 11:09:23 83 19 92 0 140/80(99) NSR 0 (11) 10(A) , No pain Medications Time Medication Route Dose Verified Delivered Reason Notes Eff ectiveness by by 10:56:32 0.9% NaCl I.V. 100 Taj Taj Per ml/hr Lisbeth Bob physician RN RN 10:56:42 Oxygen etCO2 2 Taj Taj for low 02 Nasal l/min Lorigan Lorigan sats cannula RN RN 10:56:51 Heparin Flush added 2 Taj Taj used for Bag to bags Lorigan Lorigan procedure (1000units/500ml field RN RN NS) 10:57:02 Lidocaine 2% added 20ml Taj Taj for local to vial Lorigan Lorigan anesthetic field RN RN 10:57:10 Versed I.V. 2 mg Taj Taj for Lorigan Lorigan sedation RN RN 10:57:19 Fentanyl I.V. 100 Taj Taj for mcg Lorigan Lorigan sedation RN RN 11:02:40 Versed I.V. 2 mg Taj Taj for Lorigan Lorigan sedation RN RN 11:02:47 Fentanyl I.V. 100 Taj Taj for mcg Lorigan Lorigan sedation RN RN 11:05:30 Versed I.V. 2 mg Taj Taj for Lorigan Lorigan sedation RN RN 11:10:14 Solumedrol I.V. 125 Taj Taj Per mg Lisbeth Henryigan physician RN consumer marketing analyst Log Time Note 10:29:33 Time tracking: Call back (After hours or weekends) 10:29:41 Plan of Care:Hemodynamics will remain stable., Cardiac rhythm will remain stable., Comfort level will be maintained., Respiratory function will remain adequate., Patient/ family verbilizes understanding of procedure., Procedure tolerated without complication., Recovers from procedure without complications.. 10:29:42 Signed procedure consent form obtained from patient. 10:29:45 Taj Bob RN sent for patient. Start room use. 10:42:11 Patient allergic to Other allergyKEFLEX 10:42:51 Lab Result : BUN 16 mg/dl 10:42:51 Lab Result : Creatinine 1.1 mg/dl 10:42:51 Lab Result : Hematocrit 33.9 % 10:42:51 Lab Result : Hemoglobin 10.8 g/dl 10:42:59 Patient Weight : 275.58 lbs 10:43:03 Patient Height : 70 inches 10:46:11 Patient received from Med II to CCL 1 Alert and oriented. Tansferred to table in Supine position. 10:46:13 Warm blankets applied, and yolande hugger turned on for patient comfort. 10:46:13 Correct patient and procedure confirmed by team. 10:46:14 ECG and BP/O2 sat monitors applied to patient. 10:53:12 Vital chart was started 10:53:14 Full Disclosure recording started 10:53:17 Rhythm: sinus rhythm 10:53:29 H&P Date Dictated: 08/24/2018 Within 30 days and on chart.. 10:53:30 Pre-procedure instructions explained to patient. 10:53:30 Pre-op teaching completed and patient verbalized understanding. 10:53:32 Family in patients room. 10:53:33 Patient NPO since Midnight. 10:53:35 Is the patient allergic to Iodine/contrast media? No. 10:53:37 Is patient on blood thinner?Yes 10:53:56 PLAVIX LAST DOSE: 08/22/18 10:53:58 Patient diabetic? No. 10:54:03 Previous problem with sedation/anesthesia? No ? 10:54:04 Snore? Yes 10:54:05 Sleep apnea? No 10:54:06 Deviated septum? No 10:54:07 Opens mouth fully? Yes 10:54:08 Sticks out tongue? Yes 10:54:10 Airway obstruction? No ? 10:54:11 Dentures? No ? 10:54:12 Pre procedure: right dorsailis pedis pulse 2+ Normal; easily identifiable; not easily obliterated 10:54:23 Pre procedure: left dorsailis pedis pulse 2+ Normal; easily identifiable; not easily obliterated 10:54:25 Patient pain scale 0/10 ?. 10:54:33 IV patent on arrival in left forearm with 0.9% NaCl at O. 10:54:36 Lab results completed and on chart. 10:54:39 Left groin area was prepped with chlora-prep and draped in sterile fashion 10:54:40 Alarms reviewed by R. N. 10:54:40 Sharps counted by scrub and verified by R.N. 10:54:43 Use device set Femoral Dx 10:54:44 ACIST Syringe (88870) opened to sterile field. 10:54:44 Bag Decanter (2002S) opened to sterile field. 10:54:45 Medline Cath Pack ([id number]) opened to sterile field. 10:54:45 DIAGNOSTIC WIRE .035 260cm J wire (013065) opened to sterile field. 10:54:46 ACIST Hand Control (41465) opened to sterile field. 10:54:47 ACIST Manifold (02753) opened to sterile field. 10:54:47 DIAGNOSTIC Multipack 5Fr catheter set (TX3398) opened to sterile field. 10:54:48 Tegaderm 4 x 4 (1626W) opened to sterile field. 10:54:49 SHEATH 5FR Glendora (FUF973) opened to sterile field. 10:55:37 Final Timeout: patient, procedure, and site verified with staff and physician. All members of the team are in agreement. 10:55:40 Left groin site verified by team. 10:55:42 Maximum allowable Isovue 300 dose 300ml. Physician notified. (300ml for normal creatinines. For patients with creatinine of 1.7 or higher multiply weight(kg) x 5 divided by creatinine.) 10:55:46 Fire Safety Assessment: A--An alcohol-based skin anteseptic being used preoperatively., C--Open oxygen or nitrous oxide is being used., D--An ESU, laser, or fiber-optic light is being used. 10:55:49 Physical assessment completed. ASA score P 2 - A patient with mild systemic disease as per Jacobo Kirby MD. 10:55:52 Sedation plan: IV Moderate Sedation Medication:Versed, Fentanyl 10:56:32 0.9% NaCl 100 ml/hr I.V. was administered by Taj Bob RN; Per physician; 10:56:42 Oxygen 2 l/min etCO2 Nasal cannula was administered by Taj Bob RN; for low 02 sats; 10:56:51 Heparin Flush Bag (1000units/500ml NS) 2 bags added to field was administered by Taj Bob RN; used for procedure; 10:57:02 Lidocaine 2% 20ml vial added to field was administered by Taj Bob RN; for local anesthetic; :57:10 Versed 2 mg I.V. was administered by Taj Bob RN; for sedation; :57:19 Fentanyl 100 mcg I.V. was administered by Taj Bob RN; for sedation; 10:59:18 Zero performed for pressure channel P1 11:00:06 Procedure started. 11:00:09 Local anesthetic to left femerol artery with Lidocaine 2% by Jacobo Kirby MD.INITIAL ACCESS ONLY 11:00:43 A 5 Fr sheath was inserted into the Left Femoral artery 11:02:10 A MULTIPACK JL 4.0 5Fr catheter was advanced over the wire and used for Left Coronary Angiography. 11:02:24 Baseline sample Acquired. 11:02:40 Versed 2 mg I.V. was administered by Taj Bob RN; for sedation; 11:02:47 Fentanyl 100 mcg I.V. was administered by Taj Bob RN; for sedation; 11:03:32 Catheter removed. 11:03:39 Zero performed for pressure channel P1 11:03:44 Zero performed for pressure channel P1 11:04:28 A MULTIPACK 3DRC 5Fr catheter was advanced over the wire and used for Right Coronary Angiography. 11:05:30 Versed 2 mg I.V. was administered by Taj Bob RN; for sedation; 11:05:32 A MULTIPACK 3DRC 5Fr catheter was advanced over the wire and used for SVG Angiography.TO CIRC 11:06:23 A MULTIPACK 3DRC 5Fr catheter was advanced over the wire and used for Internal mammary arteriography. TO LAD 11:06:30 Catheter removed. 11:06:50 A MULTIPACK Pigtail 5 Fr catheter was advanced over the wire and used for LV Angiography. 11:08:02 LV gram done using NGUYEN 11:08:03 LV hemodynamics recorded. 11:08:06 Injector settings: Ml/sec: 10, Volume: 20, 11:08:20 EF : 55 % 11:08:21 Catheter removed. 11:08:24 EXOSEAL 5Fr (EX500) opened to sterile field. 11:08:32 Sheath removed intact; hemostasis achieved with Exoseal to the Left Femoral artery. 11:08:33 Procedure ended.(Physican Out) 11:08:48 Fluoroscopy time 02.00 minutes. 11:08:52 Flurop Dose total: 437 11:08:52 Fluoroscopy dose: 437 mGy 11:08:56 Contrast amount:Isovue 300 55ml. 11:08:58 Sharps counted by scrub and verified by R.N. 11:08:59 Insertion/operative site no bleeding no hematoma. 11:09:02 Post-op/insertion site Left Femoral artery dressed using a 4 x 4 and Tegaderm. 11:09:11 Post left femerol artery:stable, clean and dry 11:09:12 Post Procedure Pulses reassessed and unchanged 11:09:17 Post-procedure physical assessment completed. ASA score P 2 - A patient with mild systemic disease as per Jacobo Kirby MD. 11:09:19 Post procedure rhythm: unchanged. 11:09:30 Estimated blood loss: 5 ml 11:09:32 Post procedure instruction explained to patient.Patient verbalizes understanding. 11:09:32 Patient needs reinforcement of post procedure teaching. 11:09:41 Procedure Complication : No complications 11:09:43 See physician's report for complete and final results. 11:09:57 Procedure and supply charges have been captured, reviewed, submitted and are correct. 11:10:14 Solumedrol 125 mg I.V. was administered by Taj Bob RN; Per physician; 11:12:36 Vital chart was stopped 11:12:39 Report given to PCU. 11:12:42 Patient transfered to PCU with Bed. 11:12:49 Procedure ended. 11:12:49 Full Disclosure recording stopped 11:12:54 End room use (Document Last) Device Usage Item Name Manufacture Quantity Catalog Hospital Part Current Minimal L ot# / Number Charge Number Stock Stock Serial# Code ACIST Acist 1 08268 194490 281202 604221 20 Syringe Direct Access Software (02059) Systems Inc Bag Microtek 1 753353 87687 478639 5 Decanter Medical Inc. () Medline Medline 1 [id number] 460189 94705 914964 5 Cath Pack ([id number]) DIAGNOSTIC St Ronal 1 114078 810276 321541 555754 30 WIRE .035 260cm J wire (523626) ACIST Hand Acist 1 28508 425481 862944 766248 5 Control Medical (45772) Systems Inc ACIST Acist 1 97126 946282 322111 948464 5 Manifold Medical (99929) Systems Inc DIAGNOSTIC Cardinal 1 TM8836 783669 30793 207170 30 Multipack Health 5Fr catheter set (HN2190) Tegaderm 4 3M 1 1626W 581108 963252 011716 5 x 4 (1626W) SHEATH 5FR Terumo 1 WKZ968 952985 303409 172479 5 Glendora (CYX816) MULTIPACK Cardinal 1 382125 5 JL 4.0 5Fr Health catheter MULTIPACK Cardinal 1 259112 5 3DRC 5Fr Health catheter MULTIPACK Cardinal 1 298299 5 Pigtail 5 Health Fr catheter EXOSEAL 5Fr Cardinal 1 EX500 818654 570817 552508 10 (EX500) Health Signature Audit [place] Stage Time Signature Unsigned Intra-Procedure 08/24/2018 Holly 11:13:09 AM Counts RT(R) Signatures Monitor : Holly Signature : Counts RT Date : Time : [id number] [place] [address]
[2018-08-23] MEDS ORDERED: [UNRECOGNIZED DRUG - REMARK] IM (21:23)
[2018-08-23 21:43] LABS: BASOPHILS 0.3 % (0-2); EOSINOPHILS 1.2 % (0-7); HEMATOCRIT 35.3 % (42.0-54.0); HEMOGLOBIN 11.5 g/dL (13.5-17.5); IMMATURE GRANULOCYTES 0.1 % (0-5); LYMPHOCYTES 21.7 % (15-50); MCH 24.8 pg (26.0-34.0); MCHC 32.6 g/dL (31.0-37.0); MCV 76.1 fL (80.0-100.0); MEAN PLATELET VOLUME 10.7 fL (7.4-10.4); MONOCYTES 7.5 % (2-11); NEUTROPHILS 69.2 % (40-80); PLATELET COUNT 192 10x3/uL (130-400); RBC 4.64 10x6/uL (4.20-6.10); RDW 14.2 % (11.5-14.5); WBC 7.2 10x3/uL (4.8-10.8)
[2018-08-23 21:52] LABS: APTT 29.2 SECONDS (22.8-39.4); INR 0.95 (0.85-1.17); PROTIME 12.2 SECONDS (11.6-15.0)
[2018-08-23 21:56] LABS: ALBUMIN 3.5 g/dL (3.4-5.0); ALKALINE PHOSPHATASE 105 U/L (46-116); ALT (SGPT) 17 U/L (10-68); BILIRUBIN - TOTAL 0.21 mg/dL (0.2-1.3); CALC OSMOLALITY 283 mosm/kg (275-300); CALCIUM 8.3 mg/dL (8.5-10.1); CARBON DIOXIDE 23.6 mmol/L (21.0-32.0); CHLORIDE - SERUM 101 mmol/L (98-107); CREATININE - SERUM 1.5 mg/dL (0.6-1.3); POTASSIUM - SERUM 4.1 mmol/L (3.5-5.1); PROTEIN - SERUM 7.3 g/dL (6.4-8.2); SODIUM 135 mmol/L (136-145); UREA NITROGEN 17 mg/dL (7-18); eGFR NON AFRICAN AMERICAN 53 mL/min (90-120)
[2018-08-23 22:00] VITALS: BP 142/70
[2018-08-23 22:01] LABS: GLUCOSE 319 mg/dL (74-106)
[2018-08-23 22:08] LABS: CKMB 0.8 U/L (0.0-3.6); CREATINE KINASE 89 UL (21-232); MAGNESIUM - SERUM 1.7 mg/dL (1.8-2.4); TROPONIN-I < 0.017 ng/mL (0.000-0.060)
--- NOTE | 2018-08-23 22:21 | NUR ---
ASPIRIN 325MG NOT ADMINISTERED, PT REPORTS TAKING 324MG ASA [employer] CONSULTANT
[2018-08-23 23:00] VITALS: BP 165/80
--- NOTE | 2018-08-23 23:24 | NUR ---
PT RESTING ON BED, SPOUSE AT BEDSIDE. PT REPORTS DECREASE IN PAIN AFTER RECEIVING IV MORPHINE. NO S/S OF ACUTE DISTRESS NOTED AT THIS TIME.
[2018-08-23 23:30] VITALS: BP 175/100
--- NOTE | 2018-08-23 23:41 | NUR ---
PT C/O SUDDEN INCREASE IN CP, PT RATES PAIN 12/27. EDP MARIS AND ROBY RANDHAWA NOTIFIED. REPEAT EKG ORDERED.
[2018-08-24] VITALS: BP 166/86
--- NOTE | 2018-08-24 00:30 | NUR ---
PT WAITING ON TRANSPORT TO INPATIENT ROOM. PT C/O NAUSEA. VERBAL ORDER GIVEN FOR IV ZOFRAN.
--- NOTE | 2018-08-24 00:53 | NUR ---
RECEIVED FROM ER VIA WHEELCHAIR, AT BEDSIDE, ADMISSION/HISTORY COMPLETE, IV-LAC-SL, TELEMTRY IS ON, CALL LIGHT IN REACH, WILL CONTINUE PLAN OF CARE
[2018-08-24 03:32] LABS: BASOPHILS 0.4 % (0-2); EOSINOPHILS 1.4 % (0-7); HEMATOCRIT 33.9 % (42.0-54.0); HEMOGLOBIN 10.8 g/dL (13.5-17.5); IMMATURE GRANULOCYTES 0.2 % (0-5); LYMPHOCYTES 32.5 % (15-50); MCH 24.4 pg (26.0-34.0); MCHC 31.9 g/dL (31.0-37.0); MCV 76.5 fL (80.0-100.0); MEAN PLATELET VOLUME 10.5 fL (7.4-10.4); NEUTROPHILS 56.5 % (40-80); PLATELET COUNT 161 10x3/uL (130-400); RBC 4.43 10x6/uL (4.20-6.10); RDW 14.2 % (11.5-14.5); WBC 5.7 10x3/uL (4.8-10.8)
--- NOTE | 2018-08-24 03:42 | NUR ---
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
--- NOTE | 2018-08-24 03:57 | NUR ---
ADMISSION ASSESSMENT COMPLETED. SENIOR CONTRACTS MANAGER STARTED FOR CHEST PAIN.
[2018-08-24 03:58] VITALS: BP 152/84; Ht 177.8 cm; Wt 125.0 kg
[2018-08-24 04:00] VITALS: BP 127/81
[2018-08-24 04:10] LABS: ALBUMIN 3.3 g/dL (3.4-5.0); ALKALINE PHOSPHATASE 74 U/L (46-116); ALT (SGPT) 17 U/L (10-68); BILIRUBIN - TOTAL 0.21 mg/dL (0.2-1.3); CALCIUM 8.5 mg/dL (8.5-10.1); CARBON DIOXIDE 28.3 mmol/L (21.0-32.0); CHLORIDE - SERUM 102 mmol/L (98-107); CKMB 0.6 U/L (0.0-3.6); CREATINE KINASE 73 UL (21-232); PROTEIN - SERUM 6.8 g/dL (6.4-8.2); SODIUM 137 mmol/L (136-145); UREA NITROGEN 16 mg/dL (7-18)
[2018-08-24 04:11] LABS: CALC OSMOLALITY 280 mosm/kg (275-300); CREATININE - SERUM 1.1 mg/dL (0.6-1.3); GLUCOSE 212 mg/dL (74-106); TROPONIN-I < 0.017 ng/mL (0.000-0.060); eGFR NON AFRICAN AMERICAN 76 mL/min (90-120)
--- NOTE | 2018-08-24 07:15 | NUR ---
ASSESSMENT DONE. DENIES NEEDS
[2018-08-24 08:20] VITALS: BP 154/85
[2018-08-24 09:31] LABS: CALC OSMOLALITY 280 mosm/kg (275-300); CALCIUM 8.7 mg/dL (8.5-10.1); CARBON DIOXIDE 30.8 mmol/L (21.0-32.0); CHLORIDE - SERUM 101 mmol/L (98-107); CKMB 0.8 U/L (0.0-3.6); CREATINE KINASE 71 UL (21-232); CREATININE - SERUM 1.2 mg/dL (0.6-1.3); GLUCOSE 168 mg/dL (74-106); POTASSIUM - SERUM 3.5 mmol/L (3.5-5.1); SODIUM 138 mmol/L (136-145); UREA NITROGEN 14 mg/dL (7-18); eGFR NON AFRICAN AMERICAN 69 mL/min (90-120)
[2018-08-24 09:36] LABS: TROPONIN-I < 0.017 ng/mL (0.000-0.060)
[2018-08-24] MEDS ORDERED: MEDROL DOSE PACK4 MG PO (11:49)
[2018-08-24 12:10] VITALS: BP 114/77
--- NOTE | 2018-08-24 14:28 | NUR ---
DC AND RX GIVEN TO PT
--- NOTE | 2018-08-24 14:48 | NUR ---
DC HOME PER PERSONAL CAR
--- NOTE | 2018-08-25 09:41 | MORECARE ---
CASE MANAGEMENT DISCHARGE SUMMARY PATIENT: SERINA SAENZ UNIT: [id number] ADM DATE: 08/23/18 AGE: 47 : 68 SEX: M ROOM/BED: D.0465 AUTHOR: PAOLA SAVAGE PHYSICIAN: REFERRING PHYSICIAN: IVORY ALBERTO MD DATE OF SERVICE: 08/25/18 Discharge Plan Patient Name: SERINA [facility]ENZ [facility] 1970 Planned Disposition: Home Anticipated Discharge Date: 08/24/18 Discharge Date: 08/24/2018 Expected LOS: 1 Initial Reviewer: [email or web address] Initial Review Date: 08/25/2018 Generated: 08/25/18 10:41 am Patient Name: SERINA SAENZ Page 41480 at 0941 All edits/amendments must be made on the electronic document DICTATION DATE: 08/25/18940 SOLUTIONS CONSULTANT: YISEL 08/25/18940 RPT#: [id number] DC DATE:08/24/18 STATUS: DIS IN [facility] [address] [place] [address] END OF REPORT
--- NOTE | 2018-08-26 13:13 | OP ---
PATIENT NAME: SERINA SAENZ MEDICAL RECORD: [id number] :[birth year] LOCATION:D.M2 D.2125 ADMISSION DATE:08/23/18 SURGEON: IVORY ALBERTO MD DATE OF OPERATION: 08/24/2018 PROCEDURES: Left heart catheterization, selective coronary angiography, right femoral artery approach. CATHETERS: A 5-Slovak sheath, 5/4 left and right Agustín, 5/4 pig. The procedure was well tolerated. The patient was returned to nicole. Sheath was removed. ExoSeal device was placed. FINDINGS: Left ventriculography in 30-degree NGUYEN view: Normal wall motion and normal systolic function. CORONARY ANATOMY: LEFT MAIN: Left main is free of disease. LAD: Fills for a short period of time and totally occluded. CIRCUMFLEX: One large OM with previously placed stent is widely patent. The true circumflex itself is totally occluded. The [place] right previously placed stent is widely patent with no evidence of restenosis. No progression of [place] disease. BYPASS GRAFTS: GARCIA to LAD widely patent throughout its course with excellent runoff distally. Saphenous vein graft to OM and circ system is widely patent throughout its course with excellent runoff distally. IMPRESSION: Patent stents and patent bypass grafts. Normal LV function. TRANSINT:[id number] Voice Confirmation ID: [id number] DOCUMENT ID: [id number] IVORY ALBERTO MD at 1313 CC: [id number] DICTATION DATE: 08/24/18 1115 MARINE TOWER OPERATOR: 08/24/18 1828 DIS IN 08/24/18 [address] [place] [address]
--- NOTE | 2018-08-26 13:13 | DS ---
PATIENT:SERINA SAENZ :[birth year] MEDICAL RECORD: [id number] DISCHARGE SUMMARY ADMISSION DATE: 08/23/18 DISCHARGE DATE: 08/24/18 DATE OF ADMISSION: 08/23/2018 DATE OF DISCHARGE: 08/24/2018 PROBLEM LIST: 1. Chest pain. 2. Coronary artery disease. 3. Hypertension. BRIEF HISTORY AND HOSPITAL COURSE: The patient was admitted with chest pain reminiscent of angina, underwent angiography showed patent grafts and the patient's stents. In retrospect, he reports some pleuritic component to his symptomatology, was given a dose Solu-Medrol in the lab, will see him back for regular scheduled followup in the clinic. TRANSINT:[id number] Voice Confirmation ID: [id number] DOCUMENT ID: [id number] IVORY ALBERTO MD at 1313 CC: [id number] DICTATION DATE: 08/24/18 1116 PAINT MAKER: 08/25/18 0046 DIS IN 08/24/18 [address] [place] [address]
--- NOTE | 2018-08-26 13:13 | CN ---
PATIENT NAME:SERINA SAENZ MEDICAL RECORD: [id number] : [birth year] LOCATION:D. D.2125 ADMIT DATE: 08/23/18 ACCOUNT: [id number] CONSULTING PHYSICIAN: IVORY ALBERTO MD REFERRING PHYSICIAN: IVORY ALBERTO MD DATE OF CONSULTATION: 08/24/2018 HISTORY: A 47-year-old gentleman with history of coronary artery disease, status post coronary artery bypass grafting and subsequent stenting. He has history of diabetes mellitus. He has been having chest pain over the past 2-3 days, reminiscent of his angina, with progressive symptomology last night. He presented to the ER. PAST MEDICAL HISTORY: Includes; 1. History of hypertension. 2. Hyperlipidemia. 3. Diabetes mellitus. 4. Coronary artery disease as described above. 5. Peripheral neuropathy. ALLERGIES: KEFLEX. SOCIAL HISTORY: Nonsmoker and nondrinker. No set exercise program. Easily takes care of his ADLs. MEDICATIONS: Typically, include Flomax 0.4 mg p.o. daily, Plavix 75 daily, Lipitor 20 daily, aspirin 325 daily, Neurontin 600 t.i.d., [place] 10/325 daily, Requip 0.5 at bedtime, Zoloft 100 daily, Lasix 40 daily, Glucotrol 10 b.i.d., and metformin 1 gram b.i.d. REVIEW OF SYSTEMS: The patient reports easy bruising but reports no swollen glands. The patient reports no fever, no night sweats, no significant weight gain, no significant weight loss. No significant exercise tolerance. The patient reports no dry eyes, no irritation, no vision change. Patient reports no difficulty hearing and no ear pain. Patient reports no frequent nose bleeds or nose and sinus problems. Patient reports on arm pain on exertion. No shortness of breath while lying down. No history of heart murmur. Patient reports no cough, no wheezing or coughing up blood. Patient reports no abdominal pain, no vomiting. Normal appetite. No diarrhea and not vomiting blood. No nausea and no constipation. Patient reports no incontinence. No difficulty urinating. No hematuria. No increased frequency. Patient reports no muscle aches. No weakness, no arthralgias, no back pain. No swelling of the extremities. Patient reports no abnormal mole, no jaundice, no rashes. Reports no loss of consciousness. No weakness and no numbness. No seizures, dizziness, or headaches. The patient reports no depression, no sleep disturbance, feeling safe in a relationship and no alcohol abuse. Patient reports on fatigue. Reports no runny nose or sinus pressure. No itching, no hives, and no frequent sneezing. PHYSICAL EXAMINATION: GENERAL: Middle-aged gentleman, in no acute distress. VITAL SIGNS: Blood pressure 154/85. Pulse 65 and regular. HEENT: Normocephalic and atraumatic. NECK: No JVD or bruit. HEART: Regular. CONSULT REPORT [id number] SERINA SAENZ LUNGS: Perkins are clear. ABDOMEN: Soft and nontender. EXTREMITIES: Pulse 2+. No edema. NEUROLOGIC: Grossly intact. DIAGNOSTIC DATA: ECG without acute change. IMPRESSION: Progressive angina. PLAN: Angiography and intervention based on above. TRANSINT:[id number] Voice Confirmation ID: [id number] DOCUMENT ID: [id number] IVORY ALBERTO MD at 1313 CC: [id number] DICTATION DATE: 08/24/18 1040 SEED ANALYSIS LABORATORY ASSISTANT: 08/24/18 1634 DIS IN 08/24/18 [facility] [id number]
== END 2018-08-24 14:49 | disposition home or self-care (01) ==
LOC: D.ER 21:16 → D.M2 23:37 → OBSVTIME 23:37 → D.M2 23:37
PROVIDERS: Family Medicine; ADMIT Internal Medicine Interventional Cardiology; ATTEND Internal Medicine Interventional Cardiology
DX: R07.9 Chest pain, unspecified (principal); I25.10 Atherosclerotic heart disease of native coronary artery without angina pectoris; I10 Essential (primary) hypertension; E78.5 Hyperlipidemia, unspecified; E11.42 Type 2 diabetes mellitus with diabetic polyneuropathy

== ENCOUNTER 2018-08-26 13:53 | Emergency (ER) | payer MEDICARE ==
[~2018-08-26] VITALS: Ht 177.8 cm; Wt 125.0 kg
[~2018-08-26 13:53] MED LIST changes: +MEDROL DOSE PACK4 MG PO; +[UNRECOGNIZED DRUG - REMARK] IM
[2018-08-26 13:58] VITALS: Ht 177.8 cm; Wt 125.0 kg
[2018-08-26] MEDS ORDERED: AUGMENTIN 875-11 TAB PO (16:48)
[2018-08-26] MEDS ORDERED: HYDROCODON-ACE1 EAC2 PO (16:48)
[2018-08-26 20:20] LABS: BASOPHILS 0.1 % (0-2); EOSINOPHILS 1.3 % (0-7); HEMATOCRIT 35.4 % (42.0-54.0); HEMOGLOBIN 11.4 g/dL (13.5-17.5); IMMATURE GRANULOCYTES 0.3 % (0-5); LYMPHOCYTES 31.2 % (15-50); MCH 24.6 pg (26.0-34.0); MCHC 32.2 g/dL (31.0-37.0); MCV 76.5 fL (80.0-100.0); MONOCYTES 9.1 % (2-11); RBC 4.63 10x6/uL (4.20-6.10); RDW 14.2 % (11.5-14.5); WBC 7.5 10x3/uL (4.8-10.8)
[2018-08-26 20:23] LABS: PLATELET COUNT 208 10x3/uL (130-400)
[2018-08-26 21:03] VITALS: BP 190/82
== END 2018-08-26 21:04 | disposition home or self-care (01) ==
LOC: D.ER 13:53
PROVIDERS: Family Medicine
DX: S68.123A Partial traumatic metacarpophalangeal amputation of left middle finger, initial encounter (principal); W29.8XXA Contact with other powered hand tools and household machinery, initial encounter; Y93.89 Activity, other specified; Y92.89 Other specified places as the place of occurrence of the external cause

== ENCOUNTER 2019-01-24 07:15 | Emergency (ER) | payer MEDICARE ==
[~2019-01-24] VITALS: Ht 177.8 cm; Wt 125.0 kg
[~2019-01-24 07:15] MED LIST changes: +AUGMENTIN 875-11 TAB PO; +HYDROCODON-ACE1 EAC2 PO
[2019-01-24 07:17] VITALS: Ht 177.8 cm; Wt 125.0 kg
[2019-01-24] MEDS ORDERED: TOPROL XL25 MG PO (07:24)
[2019-01-24] MEDS ORDERED: LEVOXYL25 MCG PO (07:26)
[2019-01-24] MEDS ORDERED: ULTRAM50 MG PO (08:00)
[2019-01-24 08:25] LABS: BASOPHILS 0.1 % (0-2); EOSINOPHILS 0.1 % (0-7); HEMATOCRIT 32.7 % (42.0-54.0); HEMOGLOBIN 10.3 g/dL (13.5-17.5); IMMATURE GRANULOCYTES 0.3 % (0-5); LYMPHOCYTES 9.4 % (15-50); MCH 22.2 pg (26.0-34.0); MCHC 31.5 g/dL (31.0-37.0); MCV 70.5 fL (80.0-100.0); MEAN PLATELET VOLUME 10.3 fL (7.4-10.4); MONOCYTES 6.6 % (2-11); NEUTROPHILS 83.5 % (40-80); PLATELET COUNT 197 10x3/uL (130-400); RBC 4.64 10x6/uL (4.20-6.10); RDW 16.3 % (11.5-14.5)
[2019-01-24 08:36] LABS: APTT 29.5 SECONDS (22.8-39.4); INR 1.09 (0.85-1.17); PROTIME 13.6 SECONDS (11.6-15.0)
[2019-01-24 08:54] LABS: ALBUMIN 3.5 g/dL (3.4-5.0); ALKALINE PHOSPHATASE 81 U/L (46-116); ALT (SGPT) 25 U/L (10-68); BILIRUBIN - TOTAL 0.41 mg/dL (0.2-1.3); CALC OSMOLALITY 283 mosm/kg (275-300); CALCIUM 9.2 mg/dL (8.5-10.1); CARBON DIOXIDE 30.1 mmol/L (21.0-32.0); CHLORIDE - SERUM 101 mmol/L (98-107); CREATININE - SERUM 1.5 mg/dL (0.6-1.3); GLUCOSE 166 mg/dL (74-106); POTASSIUM - SERUM 4.2 mmol/L (3.5-5.1); PROTEIN - SERUM 7.4 g/dL (6.4-8.2); SODIUM 139 mmol/L (136-145); UREA NITROGEN 17 mg/dL (7-18); eGFR NON AFRICAN AMERICAN 53 mL/min (90-120)
[2019-01-24 08:58] LABS: CKMB 0.8 U/L (0.0-3.6); CREATINE KINASE 89 UL (21-232); MAGNESIUM - SERUM 1.3 mg/dL (1.8-2.4); TROPONIN-I < 0.017 ng/mL (0.000-0.060)
[2019-01-24] MEDS ORDERED: FERROUS SULFAT325 MG PO (09:23)
[2019-01-24 10:47] VITALS: BP 154/79
== END 2019-01-24 10:48 | disposition home or self-care (01) ==
LOC: D.ER 07:15
PROVIDERS: Emergency Medicine
DX: R55 Syncope and collapse (principal); D64.9 Anemia, unspecified; E83.42 Hypomagnesemia

== ENCOUNTER → 2019-12-01 08:07 | Outpatient (CLI) | payer MEDICARE ==
[2019-01-24 07:17] VITALS: BMI 39.5
[~2019-12-01 08:07] MED LIST changes: +LEVOXYL25 MCG PO; +TOPROL XL25 MG PO; +ULTRAM50 MG PO
== END | disposition home or self-care (01) ==
LOC: D.HCCARDIO 08:07
PROVIDERS: ATTEND Internal Medicine Cardiovascular Disease
DX: I25.10 Atherosclerotic heart disease of native coronary artery without angina pectoris (principal)

== ENCOUNTER 2019-12-03 15:48 | Inpatient (IN) | payer MEDICARE ==
[~2019-12-03] VITALS: Ht 177.8 cm; Wt 120.5 kg
--- NOTE | ~2019-12-03 | HEMODYNAMI ---
PATIENT:SERINA SAENZ MEDICAL RECORD: [id number] : 68 LOCATION:[facility] D.2115 [facility]# [id number] ADMISSION DATE: 12/03/19 Generatedon:12/04/201914:34 Patient name: SERINA SAENZ Patient #: [id number] : 1970 Date of study: 12/04/2019 Page: Of Hemodynamic Procedure Report Patient Data Patient Demographics Procedure consent was obtained First Name: SERINA Gender: Male Last Name: LETTY : 1970 Middle Initial: RABIA Age: 48 year(s) Patient #: [id number] Race: SSN: [id number] Additional ID: [id number] Contact details Address: [address] [place] [address] State: [place] City: [place] Zip code: [address] Past Medical History Allergies Allergen Reaction Date Comments Reported Other allergy 06/10/2014 keflex Other allergy 04/19/2016 Keflex Other allergy 04/26/2016 keflex Other allergy 05/11/2016 Cephalexin, Monohydrate Other allergy 11/03/2016 cephalexin Monohydrate Other allergy 01/22/2017 keflex Other allergy 09/07/2017 Keflex Other allergy 08/24/2018 KEFLEX Other allergy 12/04/2019 KEFLEX Admission Admission Data Admission Date: 12/03/2019 Admission Time: 15:48 Admit Source: Emergency Insurance Payor: Private department health insurance Room #: D.2115 [facility] #: [id number] Height (in.): 69.69 BSA: 2.36 (m2) Height (cm.): 177 BMI: 38.94 (kg/m2) Weight (lbs.): 268.97 Weight (kg.): 122 Lab Results Lab Result Date: 12/04/2019 Lab Result Time: 4:23 Biochemistry Name Units Result Min Max BUN mg/dl 24 --(----)-* 7 18 Creatinine mg/dl 1.4 --(----)*- 0.6 1.3 eGFR ml/min 57 *-(----)-- 90 120 NONAFRICAN CBC Name Units Result Min Max Hematocrit % 35.2 *-(----)-- 42 54 Hemoglobin g/dl 10.8 *-(----)-- 13.5 17.5 Procedure Procedure Types Cath Procedure Diagnostic Procedure LHC LHC w/Coronaries w/Grafts FFR/IVUS FFR Initial Sedation Charges Moderate Sedation up to 30 minutes PCI Procedure PTCA PTCA Initial Hemochron ACT Test Procedure Description Procedure Date Procedure Date: 12/04/2019 Procedure Start Time: 13:52 Procedure End Time: 14:23 Procedure Staff Name Function Jyothi Perkins RT Monitor Bertrand Gamble RT Scrub Marilyn Heck RN Nurse Jacobo Kirby MD Performing Physician Procedure Data Cath Procedure Fluoroscopy Diagnostic fluoroscopy Total fluoroscopy Time: 6.1 time: 6.1 min min Diagnostic fluoroscopy Total fluoroscopy dose: 983 dose: 983 mGy mGy Contrast Material Contrast Material Type Amount (ml) Isovue 300 92 Entry Location Entry Primary Successful Side Size Upsize Upsize Entry Closure Succes sful Closure Location (Fr) 1 (Fr) 2 (Fr) Remarks Device Remarks Femoral Left 5 Fr 6 Fr Exoseal artery Short Estimated blood loss: 10 ml Diagnostic catheters Device Type Used For End Catheter Placement MULTIPACK JL 4.0 5Fr Procedure catheter MULTIPACK 3DRC 5Fr Procedure catheter MULTIPACK Pigtail 5 Fr Procedure catheter Procedure Complications No complications Procedure Medications Medication Administration Route Dosage 0.9% NaCl I.V. 100 ml/hr Oxygen etCO2 Nasal cannula 2 l/min Lidocaine 2% added to field 20 Heparin Flush Bag added to field 2 bags (1000units/500ml NS) Versed I.V. 2 mg Fentanyl I.V. 50 mcg Ativan I.V. 2 mg Fentanyl I.V. 50 mcg Heparin Bolus I.V. 5000 units Hemodynamics Rest BSA: 2.36 (m2) HGB: 10.8 (g/dl) O2 Consumption: Estimated: 283.5 (ml/min) O2 Con sumption indexed: Estimated:120.13 (ml/min/m) Heart Rate: 71 (bpm) Pressure Samples Time Site Value (mmHg) Purpose Heart Use Rate(bpm) 14:01 LV 136/5,12 Snapshot 74 Gradients Valve Time Site Site Mean SEP/DFP Peak To Heart Use 1 2 (mmHg) (sec/min) Peak Rate (mmHg) (bpm) Aortic 14:02 LV AO 78 Snapshots Pre Cath Intra NCS Post Cath Vital Signs Time Heart Resp SPO2 etCO2 NIBP (mmHg) Rhythm Pain Sedation Rate (ipm) (%) (mmHg) Status Level (bpm) 13:38:39 70 18 100 36 161/89(121) NSR 0 (11) 10(A) , No pain 13:43:14 70 19 100 39.8 152/87(134) NSR 0 (11) 10(A) , No pain 13:47:48 69 22 100 38.3 141/82(116) NSR 0 (11) 10(A) , No pain 13:52:10 70 13 97 39.1 135/84(104) NSR 0 (11) 10(A) , No pain 13:56:37 68 15 99 38.3 134/81(105) NSR 0 (11) 10(A) , No pain 14:01:05 69 23 98 36.8 140/80(111) NSR 0 (11) 10(A) , No pain 14:05:33 70 22 100 38.3 141/81(110) NSR 0 (11) 10(A) , No pain 14:10:04 71 16 100 38.3 136/78(114) NSR 0 (11) 10(A) , No pain 14:14:32 71 23 99 35.3 133/81(103) NSR 0 (11) 10(A) , No pain 14:18:56 72 23 99 36.8 143/82(116) NSR 0 (11) 10(A) , No pain 14:23:24 72 19 100 36 131/75(112) NSR 0 (11) 10(A) , No pain Medications Time Medication Route Dose Verified Delivered Reason Notes Effectiveness by by 13:47:50 0.9% NaCl I.V. 100 Jacobo Sanders used for ml/hr [facility] Prate[facility] Heck procedure MD ARREDONDO 13:47:57 Oxygen etCO2 2 Jacobo Sanders used for Nasal l/min [facility] Prateek Heck procedure cannula MD ARREDONDO 13:48:02 Lidocaine 2% added 20ml Jacobo Centeno for local to vial [place] St Chandra anesthetic field MD MG 13:48:06 Heparin Flush added 2 Jacobo Centeno used for Bag to bags [facility] John procedure (1000units/500ml field MD MG NS) 13:49:13 Fentanyl I.V. 50 Jacobo Marilyn for sedation mcg [facility] Prateek Heck MD RN 13:49:13 Versed I.V. 2 mg Jacobo Marilyn for sedation St Prateek Heck MD RN 13:56:21 Ativan I.V. 2 mg Jacobo Marilyn for sedation St Prateek Heck MD, RN 13:56:38 Fentanyl I.V. 50 Jacobo Marilyn for sedation [facility] [place] Prateek Heck MD RN 14:05:43 Heparin Bolus I.V. 5000 Jacobo Marilyn for verif ied units [facility] anticoagulation with Dr. MG RN [place] Procedure Log Time Note 13:13:09 Informed consent obtained and on chart 13:13:33 Procedure Status Urgent Heart Cath (IP). 13:13:36 Marilyn Heck RN sent for patient. Start room use. 13:18:40 Time tracking: Regular hours (M-F 7:00 - 5:00) 13:18:43 Plan of Care:Hemodynamics will remain stable., Cardiac rhythm will remain stable., Comfort level will be maintained., Respiratory function will remain adequate., Patient/ family verbilizes understanding of procedure., Procedure tolerated without complication., Recovers from procedure without complications.. 13:25:09 Admit Source: Emergency department 13:25:14 Insurance Payor : Private health insurance 13:25:37 Patient Height : 69.69 inches 13:25:39 Patient Weight : 268.97 lbs 13:26:41 Lab Result : Hemoglobin 10.8 g/dl 13:26:41 Lab Result : Hematocrit 35.2 % 13:26:41 Lab Result : eGFR NONAFRICAN 57 ml/min 13:26:41 Lab Result : BUN 24 mg/dl 13:26:41 Lab Result : Creatinine 1.4 mg/dl 13:27:01 H&P Date Dictated: 12/03/2019 Within 30 days and on chart.. 13:27:14 Patient allergic to Other allergyKEFLEX 13:28:49 Patient received from Med II to CCL 1 Alert and oriented. Tansferred to table in Supine position. 13:28:50 Warm blankets applied, and yolande hugger turned on for patient comfort. 13:28:50 Correct patient and procedure confirmed by team. 13:28:51 ECG and BP/O2 sat monitors applied to patient. 13:28:52 Pre-procedure instructions explained to patient. 13:28:53 Pre-op teaching completed and patient verbalized understanding. 13:28:54 Family in waiting room. 13:28:55 Patient NPO since Breakfast. 13:37:10 Vital chart was started 13:37:12 Baseline sample Acquired. 13:37:14 Rhythm: sinus rhythm 13:37:16 Full Disclosure recording started 13:37:17 Is patient on blood thinner?Yes 13:37:20 ACC The patient was administered the following blood thiners within the last 24 hours: ACCPlavix 13:37:21 Patient diabetic? Yes. 13:37:22 If diabetic: On Metformin? Yes 13:37:23 If on Metformin: Last Dose? 12/03/2019 13:37:27 Snore? Yes 13:37:28 Previous problem with sedation/anesthesia? No ? 13:37:30 Sleep apnea? No 13:37:31 Deviated septum? No 13:37:36 Opens mouth fully? Yes 13:37:38 Airway obstruction? No ? 13:37:39 Sticks out tongue? Yes 13:37:41 Dentures? No ? 13:37:43 Pre procedure: left dorsailis pedis pulse 1+ Palpable, but thready & weak; easily obliterated 13:37:46 Patient pain scale 0/10 ?. 13:38:00 IV patent on arrival in left antecubital with 0.9% NaCl at [facility]. 13:38:03 Lab results completed and on chart. 13:38:06 Left groin area was prepped with chlora-prep and draped in sterile fashion 13:38:07 Alarms reviewed by R. N. 13:38:08 Sharps counted by scrub and verified by R.N. 13:38:10 Use device set Femoral Dx 13:38:11 ACIST Syringe (12961) opened to sterile field. 13:38:12 Bag Decanter (2002) opened to sterile field. 13:38:12 ACIST Hand Control (35603) opened to sterile field. 13:38:13 ACIST Manifold (24810) opened to sterile field. 13:38:13 Tegaderm 4 x 4 (1626W) opened to sterile field. 13:38:14 Medline Cath Pack ([id number]) opened to sterile field. 13:38:15 DIAGNOSTIC Multipack 5Fr catheter set (UQ8257) opened to sterile field. 13:38:16 SHEATH 5FR Townsend (REQ074) opened to sterile field. 13:38:16 EMERALD Guide Wire (606-797) opened to sterile field. 13:46:06 Risk of Mortality: 2.1 13:46:08 Risk of blood transfusion: 1.5 13:46:11 Risk of YONI: 2.3 13:47:50 0.9% NaCl 100 ml/hr I.V. was administered by Marilyn Heck RN; used for procedure; Verbal order read back and verified. 13:47:57 Oxygen 2 l/min etCO2 Nasal cannula was administered by Marilyn Heck RN; used for procedure; Verbal order read back and verified. 13:48:02 Lidocaine 2% 20ml vial added to field was administered by Jacobo Kirby MD; for local anesthetic; Verbal order read back and verified. 13:48:06 Heparin Flush Bag (1000units/500ml NS) 2 bags added to field was administered by Jacobo Kirby MD; used for procedure; Verbal order read back and verified. 13:48:47 --------ALL STOP TIME OUT------ 13:48:48 Final Timeout: patient, procedure, and site verified with staff and physician. All members of the team are in agreement. 13:48:50 Left groin site verified by team. 13:48:56 Fire Safety Assessment: A--An alcohol-based skin anteseptic being used preoperatively., C--Open oxygen or nitrous oxide is being used., D--An ESU, laser, or fiber-optic light is being used. 13:49:01 Physical assessment completed. ASA score P 2 - A patient with mild systemic disease as per Jacobo Kirby MD. 13:49:05 3a) 45-59 Moderately reduced kidney function. 13:49:07 Maximum allowable contrast dose (3.7 X eGFR X 0.75)158 ml. 13:49:10 Sedation plan: IV Moderate Sedation Medication:Versed, Fentanyl 13:49:13 Versed 2 mg I.V. was administered by Marilyn Heck RN; for sedation; Verbal order read back and verified. 13:49:13 Fentanyl 50 mcg I.V. was administered by Marilyn Heck RN; for sedation; Verbal order read back and verified. 13:51:47 Procedure started. 13:51:49 Zero performed for pressure channel P1 13:52:28 Local anesthetic to left femerol artery with Lidocaine 2% by Jacobo Kirby MD.INITIAL ACCESS ONLY 13:53:20 A 5 Fr sheath was inserted into the Left Femoral artery 13:53:47 Zero performed for pressure channel P1 13:54:06 A MULTIPACK JL 4.0 5Fr catheter was advanced over the wire and used for Procedure. 13:55:19 LCA angiography performed. 13:55:50 Catheter removed. 13:56:11 A MULTIPACK 3DRC 5Fr catheter was advanced over the wire and used for Procedure. 13:56:21 Ativan 2 mg I.V. was administered by Marilyn Heck RN; for sedation; Verbal order read back and verified. 13:56:38 Fentanyl 50 mcg I.V. was administered by Marilyn Heck RN; for sedation; Verbal order read back and verified. 13:56:50 RCA angiography performed. 13:57:24 SVG to OM angiography performed. 13:58:52 Zero performed for pressure channel P1 13:59:29 GLIDE WIRE ANGLE 260cm (KY2435) opened to sterile field. 13:59:50 glide wire used to advance catheter for GARCIA 14:00:01 GARCIA to LAD angiography performed. 14:00:04 Catheter removed. 14:01:35 A MULTIPACK Pigtail 5 Fr catheter was advanced over the wire and used for Procedure. 14:01:38 LV gram done using NGUYEN 14:01:40 Injector settings: Ml/sec: 10, Volume: 20, 14:01:48 LV hemodynamics recorded. 14:02:22 EF : 55 % 14:02:23 Catheter removed. 14:02:37 Proceeding to intervention. 14:02:56 SHEATH 6FR Townsend (RNH205) opened to sterile field. 14:03:00 INFLATOR Merit BasixCompak (KI7399) opened to sterile field. 14:03:06 Sheath upsized to a 6 Fr Short. 14:03:11 GUIDE 6FR XBLAD 3.5 catheter ([id number]) opened to sterile field. 14:03:15 INFLATOR Merit [place] (KU3067) opened to sterile field. 14:03:21 [place] Plus pressure wire (68877J) opened to sterile field. 14:04:10 6 Fr XBLAD 3.5 guide catheter was inserted over the wire 14:05:43 Heparin Bolus 5000 units I.V. was administered by Marilyn Heck RN; for anticoagulation; verified with Dr. Daugherty Verbal order read back and verified. 14:06:08 FFR/IFR wire advanced. 14:09:40 Wire advanced across lesion. 14:09:53 Circ lesion measured at .88 with IFR 14:10:47 Pre PCI Site: [place] Circ has 80% stenosis. 14:11:55 ACC Pre-intervention LINDA Flow is 3. 14:13:29 Inflate balloon Inflation number: 1 A EUPHORA 3.5 x 15 Balloon ([id number]) was prepped and advanced across the Mid CX , then inflated to 10 PRISCILA for 0:00 (min:sec) . 14:14:23 Inflation number: 2 The EUPHORA 3.5 x 15 Balloon ([id number]) was reinflated across the Mid CX , to 10 PRISCILA for 0:00 (min:sec) . 14:15:06 Inflation number: 3 The EUPHORA 3.5 x 15 Balloon ([id number]) was reinflated across the Mid CX , to 12 PRISCILA for 0:00 (min:sec) . 14:16:24 Inflation number: 4 The EUPHORA 3.5 x 15 Balloon ([id number]) was reinflated across the Mid CX , to 14 PRISCILA for 0:00 (min:sec) . 14:16:41 Balloon removed over the wire. 14:19:47 Wire removed. 14:19:48 Guide catheter removed. 14:20:17 EXOSEAL 6Fr (EX600) opened to sterile field. 14:20:27 Sheath removed intact; hemostasis achieved with Exoseal to the Left Femoral artery. 14:20:55 Procedure ended.(Physican Out) 14:21:04 Fluoroscopy time 06.10 minutes. :: Fluoroscopy dose: 983 mGy 14:21: Flurop Dose total: 983 14:21:15 Dose Area Product 51228 mGy/cm. 14:21:34 Contrast amount:Isovue 300 92ml. 14:21:36 Maximum allowable dose exceeded? No. 14:21:37 Sharps counted by scrub and verified by R.N. 14:21:41 Post-op/insertion site Left Femoral artery dressed using a 4 x 4 and Tegaderm. 14:21:44 Post-procedure physical assessment completed. ASA score P 2 - A patient with mild systemic disease as per Jacobo Kirby MD. 14:21:52 Post procedure rhythm: sinus rhythm 14:21:54 Estimated blood loss: 10 ml 14:21:54 Post procedure instruction explained to patient.Patient verbalizes understanding. 14:21:55 Patient needs reinforcement of post procedure teaching. 14:22:38 Procedure type changed to Cath procedure, Diagnostic procedure, LHC, LHC w/Coronaries w/Grafts, FFR/IVUS, FFR Initial, Sedation Charges, Moderate Sedation up to 30 minutes, PCI procedure, PTCA, PTCA Initial, Hemochron ACT Test 14:23:09 Procedure and supply charges have been captured, reviewed, submitted and are correct. 14:23:13 Procedure Complication : No complications 14:23:16 Vital chart was stopped 14:23:18 [facility] Findings: MVD- PCI performed (see procedure note) 14:23:20 Operative report dictated upon procedure completion. 14:23:20 See physician's report for complete and final results. 14:23:23 Report given to [facility]. 14:23:26 Patient transfered to [facility] with Bed. 14:23:27 Procedure ended. 14:23:27 Full Disclosure recording stopped 14:23:32 End room use (Document Last) 14:23:44 ACT drawn and resulted at 191 seconds. (normal therapeutic range 180-240 seconds). Intervention Summary Intervention Notes Time ActionType Lesion and Equipment Action# Pressure Duration Attributes Used 14:13:29 Inflate Mid CX EUPHORA 1 10 00:00 balloon 3.5 x 15 Balloon ([id number]) 14:14:23 Reinflate Mid CX EUPHORA 2 10 00:00 balloon 3.5 x 15 Balloon ([id number]) 14:15:06 Reinflate Mid CX EUPHORA 3 12 00:00 balloon 3.5 x 15 Balloon ([id number]) 14:16:24 Reinflate Mid CX EUPHORA 4 14 00:00 balloon 3.5 x 15 Balloon ([id number]) Device Usage Item Name Manufacture Quantity Catalog Hospital Part Current Minima l Lot# / Number Charge Number Stock Stock Serial# Code ACIST Acist 1 71576 111776 199763 121712 20 Syringe Medical (30335) Systems Inc Bag Microtek 1 114443 34474 664069 5 Decanter Medical Inc. () ACIST Hand Acist 1 30610 028446 795902 066837 5 Control Medical (46284) Systems Inc ACIST Acist 1 03947 470586 817768 252615 5 Manifold Medical (45882) Systems Inc Tegaderm 4 3M 1 1626W 443635 316841 196982 5 x 4 (1626W) Medline Medline 1 [id number] 525061 60335 770120 5 Cath Pack ([id number]) DIAGNOSTIC Cardinal 1 PP6943 886644 73120 017413 30 Multipack Health 5Fr catheter set (EZ8479) SHEATH 5FR Terumo 1 UIN322 430518 468957 075007 5 Townsend (BMF370) EMERALD Cardinal 1 502-455 494715 297141 361703 5 Guide Wire Health (502-455) MULTIPACK Cardinal 1 205096 5 JL 4.0 5Fr Health catheter MULTIPACK Cardinal 1 225254 5 3DRC 5Fr Health catheter GLIDE WIRE Terumo 1 HV6575 814817 222990 232031 5 ANGLE 260cm (NR4199) MULTIPACK Cardinal 1 870187 5 Pigtail 5 Health Fr catheter SHEATH 6FR Terumo 1 DNI557 706236 667524 244843 40 Townsend (RJM541) INFLATOR Merit 2 ZR7353 543089 365516 424540 15 iBuyitBetter Medical BasixCompak (CV4663) GUIDE 6FR Cardinal 1 [id number] 311557 596289 111823 10 XBLAD 3.5 Health catheter (13798293) [place] 1 80542A 903961 979466344 668541 5 Verrata Plus pressure wire (18673W) EUPHORA 3.5 Medtronic 1 [id number] 320508 004623 576729 5 [id number] x 15 Balloon ([id number]) EXOSEAL 6Fr Cardinal 1 EX600 623173 637050 978459 10 (EX600) Health Signature Audit [place] Stage Time Signature Unsigned Intra-Procedure 12/04/2019 Jyothi Perkins 2:26:46 PM RT(R) Intra-Procedure 12/04/2019 Marilyn Heck 2:27:20 PM RN Intra-Procedure 12/04/2019 Jacobo Mahoney 2:34:02 PM Prateek MG [place] [address] [place] [address]
[2019-12-03 16:38] LABS: HEMATOCRIT 33.5 % (42.0-54.0); HEMOGLOBIN 10.3 g/dL (13.5-17.5); LYMPHOCYTES 20.3 % (15-50); MCH 23.5 pg (26.0-34.0); MCHC 30.7 g/dL (31.0-37.0); MCV 76.3 fL (80.0-100.0); MEAN PLATELET VOLUME 10.4 fL (7.4-10.4); NEUTROPHILS 69.9 % (40-80); PLATELET COUNT 163 10x3/uL (130-400); RBC 4.39 10x6/uL (4.20-6.10); WBC 6.7 10x3/uL (4.8-10.8)
[2019-12-03 16:48] LABS: APTT 28.4 SECONDS (22.8-39.4); INR 1.02 (0.85-1.17); PROTIME 13.4 SECONDS (11.6-15.0)
[2019-12-03 17:00] VITALS: BP 116/60; BMI 37.3
[2019-12-03 17:11] LABS: ALBUMIN 3.5 g/dL (3.4-5.0); ALKALINE PHOSPHATASE 75 U/L (30-120); ALT (SGPT) 19 U/L (10-68); BILIRUBIN - TOTAL 0.16 mg/dL (0.2-1.3); CALC OSMOLALITY 281 mosm/kg (275-300); CALCIUM 8.2 mg/dL (8.5-10.1); CARBON DIOXIDE 25.8 mmol/L (21.0-32.0); CHLORIDE - SERUM 105 mmol/L (98-107); CKMB 1.3 U/L (0.0-3.6); CREATINE KINASE 84 UL (21-232); CREATININE - SERUM 1.5 mg/dL (0.6-1.3); GLUCOSE 132 mg/dL (74-106); MAGNESIUM - SERUM 1.6 mg/dL (1.8-2.4); POTASSIUM - SERUM 4.7 mmol/L (3.5-5.1); PROTEIN - SERUM 6.5 g/dL (6.4-8.2); SODIUM 138 mmol/L (136-145); TROPONIN-I < 0.017 ng/mL (0.000-0.060); UREA NITROGEN 24 mg/dL (7-18); eGFR NON AFRICAN AMERICAN 53 mL/min (90-120)
[2019-12-03 20:00] VITALS: BP 124/52
[2019-12-03 22:50] LABS: CREATINE KINASE 73 UL (21-232); TROPONIN-I < 0.017 ng/mL (0.000-0.060)
[2019-12-04] VITALS (12 sets, daily range): BP systolic 113–151; BP diastolic 57–83; Ht 177.8 cm; Wt 120.5 kg
--- NOTE | 2019-12-04 03:10 | NUR ---
I have reviewed this patient and I concur with the Shift Assessment completed by the Licensed Practical Nurse today this shift.
[2019-12-04 04:49] LABS: HEMATOCRIT 35.2 % (42.0-54.0); HEMOGLOBIN 10.8 g/dL (13.5-17.5); LYMPHOCYTES 30.5 % (15-50); MCH 23.5 pg (26.0-34.0); MCHC 30.7 g/dL (31.0-37.0); MCV 76.5 fL (80.0-100.0); MEAN PLATELET VOLUME 10.4 fL (7.4-10.4); NEUTROPHILS 60.6 % (40-80); PLATELET COUNT 158 10x3/uL (130-400); RDW 19.5 % (11.5-14.5); WBC 6.6 10x3/uL (4.8-10.8)
[2019-12-04 05:13] LABS: ALBUMIN 3.5 g/dL (3.4-5.0); ALKALINE PHOSPHATASE 79 U/L (30-120); BILIRUBIN - TOTAL 0.24 mg/dL (0.2-1.3); CALC OSMOLALITY 281 mosm/kg (275-300); CALCIUM 8.8 mg/dL (8.5-10.1); CARBON DIOXIDE 28.7 mmol/L (21.0-32.0); CHLORIDE - SERUM 105 mmol/L (98-107); CKMB 1.1 U/L (0.0-3.6); CREATINE KINASE 69 UL (21-232); CREATININE - SERUM 1.4 mg/dL (0.6-1.3); GLUCOSE 97 mg/dL (74-106); MAGNESIUM - SERUM 1.7 mg/dL (1.8-2.4); POTASSIUM - SERUM 4.8 mmol/L (3.5-5.1); SODIUM 139 mmol/L (136-145); UREA NITROGEN 24 mg/dL (7-18); eGFR NON AFRICAN AMERICAN 57 mL/min (90-120)
[2019-12-04 05:16] LABS: ALT (SGPT) 32 U/L (10-68); TROPONIN-I < 0.017 ng/mL (0.000-0.060)
[2019-12-04 08:15] LABS: CHOL - HDL RATIO 4.2 ratio (2.3-4.9); LDL-HDL RATIO 2.1 ratio (1.5-3.5)
--- NOTE | 2019-12-04 12:21 | NUR ---
0700 BEDSIDE REPORT RECEIVED ASSESSMENT COMPLETE
--- NOTE | 2019-12-04 19:32 | NUR ---
RECIEVED LAYING IN BED WITH SPOUSE AT BEDSIDE. ALERT AND ORIENTED X4. UP AD PATRICK TO B/R. DSG TO LT GROIN CDI. IV TO LT FA SL. TELEMETRY IN PLACE. DENIES ANY NEEDS AT THIS TIME.
[2019-12-05 02:41] VITALS: BP 165/89
[2019-12-05 05:57] VITALS: BP 132/52
[2019-12-05 06:01] VITALS: BP 158/81
[2019-12-05 06:51] LABS: ALBUMIN 3.2 g/dL (3.4-5.0); ANION GAP 11.2 mmol/L (8-16); BILIRUBIN - TOTAL 0.17 mg/dL (0.2-1.3); CALCIUM 8.8 mg/dL (8.5-10.1); CARBON DIOXIDE 28.9 mmol/L (21.0-32.0); CREATININE - SERUM 1.2 mg/dL (0.6-1.3); MAGNESIUM - SERUM 1.5 mg/dL (1.8-2.4); POTASSIUM - SERUM 5.1 mmol/L (3.5-5.1); PROTEIN - SERUM 6.5 g/dL (6.4-8.2)
[2019-12-05 07:03] LABS: BASOPHILS 0.3 % (0-2); EOSINOPHILS 2.6 % (0-7); HEMATOCRIT 33.3 % (42.0-54.0); HEMOGLOBIN 10.2 g/dL (13.5-17.5); IMMATURE GRANULOCYTES 0.2 % (0-5); LYMPHOCYTES 24.4 % (15-50); MCH 23.6 pg (26.0-34.0); MCHC 30.6 g/dL (31.0-37.0); MCV 76.9 fL (80.0-100.0); MONOCYTES 8.1 % (2-11); NEUTROPHILS 64.4 % (40-80); PLATELET COUNT 147 10x3/uL (130-400); RBC 4.33 10x6/uL (4.20-6.10); WBC 6.2 10x3/uL (4.8-10.8)
--- NOTE | 2019-12-05 07:22 | NUR ---
AM ROUNDS- PT UP TO CHAIR, A/O X4, RESP EVEN AND NONLABORED ON RA. LT FA IV SL. HEART MONITOR SHOWING SR WITH RATE OF 72. LT GROIN DRESSING CDI, NO S/S OF BLEEDING OR HEMATOMA, BRUISING NOTED. PT DENIES ANY NEEDS AT THIS TIME.CALL LIGHT IN REACH, NAD NOTED, WILL CONTINUE PLAN OF CARE.
[2019-12-05 08:00] VITALS: BP 156/81
--- NOTE | 2019-12-05 09:17 | NUR ---
PROVIDED VERBAL AND WRITTEN DISCHARGE TEACHING TO PT WHO VERBALIZED UNDERSTANDING REGARDING TEACHING. D/C LT FA IV WITH CATHETER TIP INTACT. HEART MONITOR REMOVED AND TAKEN TO BENCH PRESS OPERATOR. PT WILL NOTIFY NURSE WHEN READY FOR WHEELCHAIR.
--- NOTE | 2019-12-05 09:38 | NUR ---
PT LEFT UNIT VIA WHEELCHAIR, WITH ALL BELONGINGS, ACCOMPANIED BY . NAD NOTED.
--- NOTE | 2019-12-07 08:54 | OP ---
PATIENT NAME: SERINA SAENZ MEDICAL RECORD: [id number] :68 LOCATION:D.M2 D.2115 ADMISSION DATE:12/03/19 SURGEON: IVORY ALBERTO MD DATE OF OPERATION: 12/04/2019 PROCEDURE: Left heart catheterization, selective coronary angiography, right femoral artery approach. CATHETERS: A 5-Kyrgyz sheath, 5/4 left and right Agustín, 5/4 pig. The procedure was well tolerated. The patient returned to the nicole. Sheath removed. ExoSeal device placed. FINDINGS: Left ventriculography in 30-degree NGUYEN view: Normal wall motion and normal systolic function. CORONARY ANATOMY: LEFT MAIN: Left main is free of disease. LAD: Fills for a short period of time and is totally occluded. CIRCUMFLEX: The [place] circumflex itself has about 80% in-stent restenosis confirmed with IFR wire of 0.88. The [place] right has a widely patent stent, no evidence of restenosis. BYPASS GRAFTS: 1. GARCIA to LAD: Widely patent throughout its course with good runoff distally. 2. SAPHENOUS VEIN GRAFT TO THE OM: Widely patent with good runoff distally. 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 PLAN: Intervention momentarily. DESCRIPTION OF PROCEDURE: A 5-Kyrgyz sheath was exchanged for 6-Kyrgyz sheath. XB LAD guiding catheter provided excellent guide catheter support followed by a 300 cm Whisper wire was placed across the tightly occluded circumflex down the this portion. Balloon used was a 3.5 x 15 mm Euphora stent up and down the entire length of vessel. This showed excellent resolution of 80% stenosis, no significant residual. LINDA flow was 3 throughout the procedure. Heparin was used during the case. The patient was previously on Plavix. Sheath was closed with ExoSeal device. TRANSINT:[id number] Voice Confirmation ID: [id number] DOCUMENT ID: [id number] IVORY ALBERTO MD at 0854 CC: [id number] DICTATION DATE: 12/04/19 1434 MECHANICAL DETAILER: 12/05/19 0034 DIS IN 12/05/19 [facility] [address] [place] [address]
== END 2019-12-05 09:39 | disposition home or self-care (01) | DRG 251 ==
LOC: D.M2 15:48
PROVIDERS: Family Medicine; Internal Medicine Cardiovascular Disease; Internal Medicine Interventional Cardiology; ADMIT Family Medicine; ATTEND Family Medicine
PROC: B2131ZZ Fluoroscopy of Multiple Coronary Artery Bypass Grafts using Low Osmolar Contrast (ICD-10-PCS; 2019-12-04)
PROC: B2151ZZ Fluoroscopy of Left Heart using Low Osmolar Contrast (ICD-10-PCS; 2019-12-04)
PROC: 4A033BC Measurement of Arterial Pressure, Coronary, Percutaneous Approach (ICD-10-PCS; 2019-12-04)
PROC: 02703ZZ Dilation of Coronary Artery, One Artery, Percutaneous Approach (ICD-10-PCS; principal; 2019-12-04 13:15)
PROC: 4A023N7 Measurement of Cardiac Sampling and Pressure, Left Heart, Percutaneous Approach (ICD-10-PCS; 2019-12-04 13:15)
DX: T82.855A Stenosis of coronary artery stent, initial encounter (principal); I25.110 Atherosclerotic heart disease of native coronary artery with unstable angina pectoris; I13.0 Hypertensive heart and chronic kidney disease with heart failure and stage 1 through stage 4 chronic kidney disease, or unspecified chronic kidney disease; R55 Syncope and collapse; E11.65 Type 2 diabetes mellitus with hyperglycemia; D50.9 Iron deficiency anemia, unspecified; E11.22 Type 2 diabetes mellitus with diabetic chronic kidney disease; N18.9 Chronic kidney disease, unspecified; I50.9 Heart failure, unspecified; E78.5 Hyperlipidemia, unspecified; K22.70 Barrett's esophagus without dysplasia; E03.9 Hypothyroidism, unspecified; F32.9 Major depressive disorder, single episode, unspecified; Y84.9 Medical procedure, unspecified as the cause of abnormal reaction of the patient, or of later complication, without mention of misadventure at the time of the procedure; Z86.73 Personal history of transient ischemic attack (TIA), and cerebral infarction without residual deficits

== ENCOUNTER 2020-10-30 20:52 | Emergency (ER) | payer MEDICARE ==
[2019-12-04 14:21] VITALS: Ht 177.8 cm; Wt 112.9 kg
[~2020-10-30] VITALS: Ht 177.8 cm; Wt 112.9 kg
[2020-10-30 21:22] LABS: BASOPHILS 0.8 % (0-2); EOSINOPHILS 2.6 % (0-7); HEMATOCRIT 29.3 % (42.0-54.0); LYMPHOCYTES 19.2 % (15-50); MCH 20.5 pg (26.0-34.0); MCHC 30.8 g/dL (31.0-37.0); MCV 66.7 fL (80.0-100.0); MEAN PLATELET VOLUME 8.6 fL (7.4-10.4); MONOCYTES 7.5 % (2-11); NEUTROPHILS 69.9 % (40-80); PLATELET COUNT 194 10x3/uL (130-400); RBC 4.39 10x6/uL (4.20-6.10); RDW 18.2 % (11.5-14.5); WBC 5.7 10x3/uL (4.8-10.8)
[2020-10-30 21:26] LABS: INR 1.12 (0.85-1.17); PROTIME 13.4 SECONDS (11.6-15.0)
[2020-10-30 21:27] LABS: APTT 30.4 SECONDS (22.8-39.4)
[2020-10-30 21:58] LABS: ALKALINE PHOSPHATASE 91 U/L (30-120); ALT (SGPT) 22 U/L (10-68); BILIRUBIN - TOTAL 0.29 mg/dL (0.2-1.3); CALCIUM 8.1 mg/dL (8.5-10.1); CHLORIDE - SERUM 103 mmol/L (98-107); CKMB 1.2 U/L (0.0-3.6); CREATINE KINASE 117 UL (21-232); CREATININE - SERUM 1.4 mg/dL (0.6-1.3); POTASSIUM - SERUM 4.1 mmol/L (3.5-5.1); PRO BNP 1543 pg/mL (0-125); PROTEIN - SERUM 6.9 g/dL (6.4-8.2); SODIUM 138 mmol/L (136-145); UREA NITROGEN 14 mg/dL (7-18); eGFR NON AFRICAN AMERICAN 57 mL/min (90-120)
[2020-10-30 21:59] LABS: CALC OSMOLALITY 287 mosm/kg (275-300); GLUCOSE 293 mg/dL (74-106); TROPONIN-I < 0.017 ng/mL (0.000-0.060)
[2020-10-30 22:18] LABS: ALBUMIN 3.3 g/dL (3.4-5.0); CARBON DIOXIDE 28.3 mmol/L (21.0-32.0)
[2020-10-31 01:12] VITALS: BP 183/86
== END 2020-10-31 00:12 | disposition home or self-care (01) ==
LOC: D.ER 20:52
PROVIDERS: Family Medicine
DX: R60.0 Localized edema (principal); I50.9 Heart failure, unspecified; I11.0 Hypertensive heart disease with heart failure; G25.81 Restless legs syndrome; E11.9 Type 2 diabetes mellitus without complications; E78.5 Hyperlipidemia, unspecified; Z79.84 Long term (current) use of oral hypoglycemic drugs